=== PATIENT | female | born 1950 | race Caucasian/White ===

== ENCOUNTER → 2020-07-25 09:37 | Outpatient (BNVA) | payer BC, SELFPAY | PROVIDERS: PCP Internal Medicine; Visit Provider Student in an Organized Health Care Education/Training Program | DX: Z76.89 Persons encountering health services in other specified circumstances (principal) ==

== ENCOUNTER → 2020-08-01 09:41 | Outpatient (REF) | payer BC, SELFPAY ==
--- NOTE | 2020-08-01 | NM_ITS ---
EXERCISE MYOCARDIAL PERFUSION STUDY INDICATION: Cardiomegaly, congestive heart failure, assess for ischemia TECHNIQUE: The patient was brought in for an exercise perfusion study on 08/01/2020. Patient performed exercise as per Rylan protocol and was injected 25 mCi of sestamibi once target heart rate was achieved. Images were obtained using the SPECT gamma camera interlaced with the gating device. Images were obtained in supine as well as prone position. Resting perfusion study was performed on 08/02/2020. Patient was administered 25 mCi of sestamibi intravenously at rest. Images were then obtained in supine position. Images were processed with the software and compared side to side in short axis, horizontal long axis and vertical long axis views. FINDINGS: Raw images were reviewed. The stress perfusion study showed no significant perfusion abnormality. Both supine as well as prone acquisition reviewed. The gated study shows normal LV systolic function with calculated LVEF of 72%. LV cavity is normal in size. The gated study shows normal wall thickening and contraction of segments. Resting study shows no significant perfusion abnormality. Gating at rest reveals normal wall motion with ejection fraction at 71%. The findings are consistent with no reversible or fixed perfusion abnormality. IMPRESSION: 1. Myocardial perfusion imaging study shows normal myocardial perfusion. No evidence of any ischemia or infarction. 2. Gated LVEF is > 70% during stress and rest. 3. Transient ischemic dilatation not present. EKG component of the test reported separately.
--- NOTE | 2020-08-01 10:00 | CA_ITS ---
Acquisition Time: 2020-08-01 10:12:30 Total Exercise Time: 00:05:03 Test Indications: CARDIOMYOPATHY, CAD, HTN, EXERT Medications: Protocol: JUDY Max HR: 126 BPM 84% of Pred: 149 BPM Max BP: 162/084 mmHG Max Work Load: 4.8 METS Exercise stress nuclear using Judy protocol, 2nd stage held and the incline decreased. Total of 5 min 3 sec. EKG with no arrhythmias no ischemic changes. Nuclear images to follow. Normotensive response to exercise. Test reviewed with Dr. Pham. Referred By: Mario Green Overread By: Ananda Rashid
== END ==
LOC: HO.CARD 09:41
PROVIDERS: Visit Provider Internal Medicine Cardiovascular Disease
DX: I25.10 Atherosclerotic heart disease of native coronary artery without angina pectoris (principal); R06.02 Shortness of breath; Z86.79 Personal history of other diseases of the circulatory system
CPT/HCPCS: 78452; 93017; A9500

== ENCOUNTER 2020-10-30 08:29 | Outpatient (REF) | payer BC, SELFPAY ==
[2020-11-02 18:32] LABS: HPV mRNA E6/E7 rflx Not Detected (Not Detected)
== END 2020-10-30 08:30 | disposition home or self-care (01) ==
LOC: HO.LAB 08:29
PROVIDERS: Visit Provider Advanced Practice Midwife
DX: Z12.4 Encounter for screening for malignant neoplasm of cervix (principal); N88.9 Noninflammatory disorder of cervix uteri, unspecified
CPT/HCPCS: 36415; 87624; 88141; 88142

== ENCOUNTER → 2020-11-07 08:05 | Outpatient (BNVA) | payer BC, SELFPAY | PROVIDERS: PCP Internal Medicine; Visit Provider Student in an Organized Health Care Education/Training Program ==

== ENCOUNTER 2020-11-09 10:12 | Outpatient (REF) | payer BC, SELFPAY ==
--- NOTE | 2020-11-09 10:18 | XR_ITS ---
EXAMINATION: XR KNEE, RIGHT XR KNEE, LEFT CLINICAL INFORMATION: M17.0 - Bilateral primary osteoarthritis of knee COMPARISON: None TECHNIQUE: Each knee is imaged in 4 views including AP projections with weightbearing. There are a total of 8 views. FINDINGS: Right knee: No fracture or dislocation or destructive process. Mild patellofemoral joint narrowing without lateralization or tilting. Medial and lateral knee joint compartments within normal. No erosive change or chondrocalcinosis. No suprapatellar effusion. There is spurring at the quadriceps insertion patella. Scattered atherosclerotic calcifications vasculature. Left knee: No fracture or dislocation or destructive process. There is spurring at the quadriceps insertion patella and small suprapatellar effusion. Hoffa's fat pad appears normal. There is narrowing medial knee joint compartment with mild subchondral sclerosis and marginal osteophytes medial femoral condyle and tibial plateau. There are degenerative changes lateral patellofemoral joint with mild narrowing and lateral patellar spur. No definite lateralization or tilting. Scattered atherosclerotic calcifications vasculature. XR/XR knee RT 4V IMPRESSION: 1. Right: Mild degenerative change patellofemoral joint. Spurring quadriceps insertion patella. No effusion. 2. Left: Degenerative changes medial knee joint compartment and lateral patellofemoral joint. Small suprapatellar effusion. Spurring quadriceps insertion patella. 3. Bilateral scattered atherosclerotic changes vasculature.
--- NOTE | 2020-11-09 10:18 | XR_ITS ---
EXAMINATION: XR KNEE, RIGHT XR KNEE, LEFT CLINICAL INFORMATION: M17.0 - Bilateral primary osteoarthritis of knee COMPARISON: None TECHNIQUE: Each knee is imaged in 4 views including AP projections with weightbearing. There are a total of 8 views. FINDINGS: Right knee: No fracture or dislocation or destructive process. Mild patellofemoral joint narrowing without lateralization or tilting. Medial and lateral knee joint compartments within normal. No erosive change or chondrocalcinosis. No suprapatellar effusion. There is spurring at the quadriceps insertion patella. Scattered atherosclerotic calcifications vasculature. Left knee: No fracture or dislocation or destructive process. There is spurring at the quadriceps insertion patella and small suprapatellar effusion. Hoffa's fat pad appears normal. There is narrowing medial knee joint compartment with mild subchondral sclerosis and marginal osteophytes medial femoral condyle and tibial plateau. There are degenerative changes lateral patellofemoral joint with mild narrowing and lateral patellar spur. No definite lateralization or tilting. Scattered atherosclerotic calcifications vasculature. XR/XR knee LT 4V IMPRESSION: 1. Right: Mild degenerative change patellofemoral joint. Spurring quadriceps insertion patella. No effusion. 2. Left: Degenerative changes medial knee joint compartment and lateral patellofemoral joint. Small suprapatellar effusion. Spurring quadriceps insertion patella. 3. Bilateral scattered atherosclerotic changes vasculature.
== END 2020-11-09 10:13 | disposition home or self-care (01) ==
LOC: HO.HMGCX 10:12
PROVIDERS: PCP Internal Medicine; Visit Provider Student in an Organized Health Care Education/Training Program
DX: M17.0 Bilateral primary osteoarthritis of knee (principal)
CPT/HCPCS: 73564

== ENCOUNTER 2020-11-29 11:00 | Outpatient (RCR) | payer BC, SELFPAY ==
--- NOTE | 2020-11-16 16:34 | MHC.PT.EP ---
[facility] [place] Office [place] Office [place] Office [address] Jamarcus Tam [address] [phone] F: [phone] F: [phone] F: [phone] F: [phone] Physical Therapy Plan of Care Date of Evaluation: 11/16/20 Date of Surgery: Diagnosis: This is a 70 yo female presenting to skilled PT with a script for B knee OA. Assessment: This is a 70 yo female presenting to skilled PT with a script for B knee OA. She reports that her pain is mainly in the L knee. The patient is here today reporting pain has been present since the fall season when she was taken off her meloxicam (she has since been back on it however her pain has been slowly getting worse still). On top of pain she feels like her strength in BLE has got worse as well. In the past, she has received cortisone injections but these did not change her symptoms and she has never attended physical therapy for this issue prior. She is currently managing her symptoms with Tylenol arthritis and meloxicam but continues to have symptoms. Pain is located laterally, under the patella, medially and posteriorly as well. She describes her pain as achy and noisy . Assessment reveals pain that ranges to about a 4/10. She demos decreased L ROM with extension primarily, impaired quad strength on the L, hypomobile with patella movements, impaired gait with decreased full knee extension and heel strike and decreased pain tolerance with higher level activities. Functionally, she has a hard time with ascending/descending stairs, sleeping through the night, LB ADLs and walking her large dog 1-2 miles at a brisk pace. She is a good candidate for skilled PT 2x/wk for 5wks. Frequency and Duration: The patient will be seen 2x/wk for 5wks Short Term Goals: I in HEP Demo good squatting techniques without cuing from PT Demo good quad set without overactivation of glut Track Coach Goals: Demos functional BLE ROM and strength Improve LEFs by at least 10 points Improve pain at the worst to no more than 1/10 Demo proper gait on stairs without pain Treatment Plan: Modalities to reduce pain, spasms and effusion. Manual therapy to restore motion and function. Therapeutic exercise to improve strength and flexibility. Neuromuscular re-education for posture and balance. Therapeutic activities to return to functional activities of daily living. Electronically signed by: Jeanette Jacobs PT Please sign and return to therapist. Thank you for your referral.
--- NOTE | 2021-04-16 13:59 | MHC.PT.DC ---
[facility] [place] Office [place] Office [place] Office [address] Jamarcus Tam [address] [phone] F: [phone] F: [phone] F: [phone] F: [phone] Physical Therapy Discharge Report Diagnosis: This is a 70 yo female presenting to skilled PT with a script for B knee OA. Date of Surgery: Date of Evaluation: 11/16/20 Date of Discharge: 04/16/21 Treatments to Date: 4 Cancellations to Date: 0 No Shows to Date: 0 Discharge Status: Improved Function Independent with HEP Patient Elected to Stop Discharge Summary: Patient reporting no pain s/p US session trial at the last tx session. Added in bridging, SAQ without pain. Some discomfort on shuttle but tolerable. Plan to trial US once more next session however patient did not return for further tx. Electronically signed by: Jeanette Jacobs PT Please sign and return to therapist. Thank you for your referral.
== END 2021-04-16 14:00 | disposition home or self-care (01) ==
LOC: HO.PTCHIC 11:00
PROVIDERS: PCP Internal Medicine; Visit Provider Student in an Organized Health Care Education/Training Program
DX: M17.0 Bilateral primary osteoarthritis of knee (principal)
CPT/HCPCS: 97035; 97110; 97140; 97162

== ENCOUNTER 2021-01-12 08:08 | Outpatient (REF) | payer BC, SELFPAY ==
--- NOTE | ~2021-01-12 | MM_ITS ---
EXAMINATION: MM SCREENING DIGITAL BREAST TOMOSYNTHESIS, BILATERAL CLINICAL INFORMATION: Screening. Asymptomatic. The lifetime risk of breast cancer based on the Tyrer-Cuzick Model is 4.0%. COMPARISON: Mammography: March 09, 2019 and studies dating back to August 06, 2012 TECHNIQUE: Digital breast tomosynthesis is performed in both the craniocaudal and mediolateral oblique views along with computer-aided detection (CAD). Synthesized 2D images are generated from the tomosynthesis. FINDINGS: There are scattered areas of fibroglandular density (ACR BI-RADS breast composition Category b). There are no significant masses, abnormal calcifications, or other abnormalities. MM/MM tomosynthesis screening BI IMPRESSION: There are no significant changes from prior study. ASSESSMENT: BI-RADS 1: Negative RECOMMENDATION: Routine annual mammography screening. This patient's information was entered into a reminder system with a target due date for their next mammogram.
== END 2021-01-12 08:09 | disposition home or self-care (01) ==
LOC: HO.MAMMO 08:08
PROVIDERS: Visit Provider Advanced Practice Midwife
DX: Z12.31 Encounter for screening mammogram for malignant neoplasm of breast (principal)
CPT/HCPCS: 77063; 77067

== ENCOUNTER → 2021-03-02 08:28 | Outpatient (BNVA) | payer BC, SELFPAY | PROVIDERS: PCP Internal Medicine; Referring Provider Internal Medicine; Visit Provider Internal Medicine Cardiovascular Disease ==

== ENCOUNTER → 2021-04-13 07:57 | Outpatient (BNVA) | payer BC, SELFPAY | PROVIDERS: PCP Internal Medicine; Visit Provider Student in an Organized Health Care Education/Training Program | DX: M17.0 Bilateral primary osteoarthritis of knee (principal) | CPT/HCPCS: 20610 ==

== ENCOUNTER 2021-05-01 09:15 | Outpatient (REF) | payer BC, SELFPAY ==
--- NOTE | ~2021-05-01 | XR_ITS ---
EXAMINATION: XR CHEST CLINICAL INFORMATION: Cough COMPARISON: Previous chest x-ray most recent August 2017 TECHNIQUE: 2 views of the chest were obtained. FINDINGS: The cardiac and mediastinal contours are stable. There is mild biapical pleural thickening that is stable. The lungs are otherwise clear. There is no pleural effusion or pneumothorax. There are postsurgical changes to the right shoulder. There are degenerative changes of the spine. XR/XR chest 2V IMPRESSION: No evidence for acute disease in the chest.
== END 2021-05-01 09:16 | disposition home or self-care (01) ==
LOC: HO.HMGCX 09:15
PROVIDERS: PCP Internal Medicine; Visit Provider Internal Medicine
DX: R05 Cough (principal)
CPT/HCPCS: 71046

== ENCOUNTER → 2021-08-27 09:00 | Outpatient (REF) | payer BC, SELFPAY ==
--- NOTE | 2021-08-27 09:03 | CA_ITS ---
Transthoracic Echocardiogram Patient (Last, First, Middle): Haleigh Miranda L Gender: Female Date of : 1950 Age: 71 Procedure Date: 08/27/2021 Procedure Type: Transthoracic Echocardiogram Location: OP Height: 160.02 cm Weight: 65.77 kg BSA: 1.69 m2 Heart Rate: bpm BP: 126 / 68 mmHg Access Specialist: Referring MD: Mario Green MD Symptoms: I50.20 - Unspecified systolic (congestive) heart failure Study Quality: Fair ECG Rhythm: Sinus Conclusions: - The left ventricular systolic function is normal. The calculated ejection fraction is 62% by biplane method. - The basal inferior segment is hypokinetic. - There is mild mitral annular calcification. There is mild mitral valve regurgitation. Findings Left Ventricle Normal left ventricular cavity size. There is mildly increased left ventricular wall thickness. The left ventricular systolic function is normal. The calculated ejection fraction is 62% by biplane method. E/E prime ratio is between 8 and 15 consistent with indeterminate filling pressures. Evidence suggests grade I (mild) diastolic dysfunction. Wall Motion Rest Echo Findings The basal inferior segment is hypokinetic. Right Ventricle Normal right ventricular cavity size and systolic function. Atria The left atrium is mildly dilated. The right atrium is normal in size. There is a prominent eustachian valve. Aortic Valve The aortic valve was not well visualized. There is no aortic valve stenosis. There is trace (trivial) aortic valve regurgitation. Mitral Valve There is mild mitral annular calcification. There is mild mitral valve regurgitation. There is no mitral valve stenosis. Pulmonic Valve The pulmonic valve was not well visualized. Tricuspid Valve Normal tricuspid valve structure. There is trace tricuspid valve regurgitation. The pulmonary artery systolic pressure is normal. Great Vessels The aortic annulus, sinuses of valsalva, and asc aorta are normal in size. Venous The inferior vena cava is normal in size and collapses greater than 50% with inspiration. Pericardium/Pleural There is no evidence of pericardial effusion. Prior Study Comparison No significant change compared to prior study dated: 07/04/2020. Measurements 2D Linear Measurements IVSd: 1.04 0.6-0.9/0.6-1.0 cm LVIDd: 4.54 3.9-5.3/4.2-5.9 cm LVIDd Index: 2.69 2.4-3.2/2.2-3.1 cm/m2 LVIDs: 2.58 2.0-3.6 cm LVPWd: 1.06 0.7-1.1 cm Ao Root: 3.00 2.1-3.5 cm LA Diam: 4.30 2.7-3.8/3.0-4.0 cm LAIDs Index: 2.54 1.5-2.3 cm/m2 LV Mass: 207.15 67-162/88-224 g LV Mass Index: 122.57 43-95/49-115 g/m2 LVOT Diam: 2.00 3.0+(-)1.3 cm 2D Systolic Function EF 4C: 61.80 >55% EF 2C: 61.00 >55% EF BiP: 62.30 >55% Mitral Valve MV VTI: 0.42 MV Pk Valentin: 1.28 MV Mn Valentin: 0.78 MV Pk Grad: 7.00 MV Mn Grad: 3.00 MV Pk E: 0.85 MV PK A: 1.14 MV Decel Time: 205.00 E/A: 0.70 E'Lateral: 7.51 E'Medial: 5.33 E/E' Med: 15.90 E/E' Lat: 11.30 PHT: 60.00 MVA PHT: 3.67 MVA Continuity: 1.57 Decel [place]: 4.14 Aortic Valve AoV Pk Valentin: 1.70 AoV Mn Valentin: 1.12 AoV VTI: 0.41 AoV Pk Grad: 12.00 Aov Mn Grad: 6.00 LAWANDA Cont.VTI: 1.61 LVOT LVOT Pk Valentin: 0.87 LVOT Mn Valentin: 0.58 LVOT VTI: 0.21 LVOT Pk Grad: 3.00 LVOT Mn Grad: 2.00 LVOT Diam: 2.00 LVOT Area: 3.14 Diastolic Function MV Pk E: 0.85 MV Pk A: 1.14 E/A: 0.70 E'Medial: 5.33 E/E' Med: 15.90 E' Laterial: 7.51 E/E' Lat: 11.30 Great Vessels Aorta Ao Root-2D: 3.00 2.0-3.7 cm Ao Asc: 3.30 2.1-3.4 cm Pulmonary Valve PV Pk Valentin: 1.05 Peak PV Grad: 4.00 Updated in Other Vendor System with Status of Final Marquis Pham MD electronically signed on 08/28/2021 4:10:28 PM with status of Final
== END ==
LOC: HO.CARD 09:00
PROVIDERS: PCP Internal Medicine; Visit Provider Internal Medicine Cardiovascular Disease
DX: I50.20 Unspecified systolic (congestive) heart failure (principal)
CPT/HCPCS: 93306

== ENCOUNTER 2021-10-10 09:29 | Outpatient (REF) | payer BC, SELFPAY | END 2021-10-10 09:30 | disposition home or self-care (01) | LOC: HO.HMGCLDS 09:29 | PROVIDERS: PCP Internal Medicine; Visit Provider Internal Medicine | DX: Z20.822 Contact with and (suspected) exposure to COVID-19 (principal) | CPT/HCPCS: C9803; U0003; U0005 ==

== ENCOUNTER → 2021-11-06 13:52 | Outpatient (BNVA) | payer BC, SELFPAY | PROVIDERS: PCP Internal Medicine; Referring Provider Internal Medicine; Visit Provider Internal Medicine Cardiovascular Disease | DX: I25.10 Atherosclerotic heart disease of native coronary artery without angina pectoris (principal); I50.20 Unspecified systolic (congestive) heart failure; Z79.899 Other long term (current) drug therapy | CPT/HCPCS: 93005 ==

== ENCOUNTER → 2022-05-09 12:16 | Outpatient (BNVA) | payer BC, SELFPAY | PROVIDERS: PCP Internal Medicine; Referring Provider Internal Medicine; Visit Provider Internal Medicine Cardiovascular Disease | DX: I25.10 Atherosclerotic heart disease of native coronary artery without angina pectoris (principal); I50.20 Unspecified systolic (congestive) heart failure | CPT/HCPCS: 93005 ==

== ENCOUNTER 2022-05-17 08:17 | Outpatient (REF) | payer MEDICARE, SELFPAY ==
[2022-05-17 11:15] LABS: Hematocrit 38.8 % (37.0-47.0); Hemoglobin 12.7 g/dl (12.0-16.0); Mean Corpuscular HGB Conc 32.7 g/dl (31.0-35.0); Mean Corpuscular Hemoglobin 29.3 pg (27.0-33.0); Mean Corpuscular Volume 89.6 fL (80.0-98.0); Platelet Count 302 X10*3/uL (160-400); Red Blood Count 4.33 X10*6/uL (4.20-5.50); White Blood Count 9.6 X10*3/uL (4.8-10.8)
[2022-05-17 11:42] LABS: Anion Gap 14 (12-20); Blood Urea Nitrogen 17 mg/dL (9-16); Carbon Dioxide 29 mmol/L (22-29); Chloride 104 mmol/L (96-108); Cholesterol 151 mg/dL; Estimated Glomerular Filt Rate > 60; Glucose Random 98 mg/dL (60-115); HDL Cholesterol 62 mg/dL; LDL Cholesterol Calculated 72 mg/dl; Potassium 4.4 mmol/L (3.3-5.1); Sodium 143 mmol/L (135-145); Triglycerides 89 mg/dL
[2022-05-17 12:04] LABS: TSH reflex Free T4 0.57 uIU/mL (0.32-4.0)
== END 2022-05-17 08:18 | disposition home or self-care (01) ==
LOC: HO.HMGCLDS 08:17
PROVIDERS: Visit Provider Internal Medicine Cardiovascular Disease
DX: I25.10 Atherosclerotic heart disease of native coronary artery without angina pectoris (principal)
CPT/HCPCS: 36415; 80048; 80061; 84443; 85027

== ENCOUNTER 2022-06-19 07:48 | Outpatient (REF) | payer MEDICARE, SELFPAY ==
--- NOTE | ~2022-06-19 | MM_ITS ---
EXAMINATION: MM SCREENING DIGITAL BREAST TOMOSYNTHESIS, BILATERAL CLINICAL INFORMATION: Screening. Asymptomatic. The lifetime risk of breast cancer based on the Tyrer-Cuzick Model is 4%. COMPARISON: Mammography: 01/12/2021, 03/09/2019, 01/21/2018 TECHNIQUE: Digital breast tomosynthesis is performed in both the craniocaudal and mediolateral oblique views along with computer-aided detection (CAD). Synthesized 2D images are generated from the tomosynthesis. FINDINGS: There are scattered areas of fibroglandular density (ACR BI-RADS breast composition Category b). There are no significant masses, abnormal calcifications, or other abnormalities. Parenchymal pattern is similar to prior studies. There is no developing density or architectural abnormality. The axilla and skin contours are unremarkable. No significant changes. MM/MM tomosynthesis screening BI IMPRESSION: No mammographic evidence of malignancy. ASSESSMENT: BI-RADS 1: Negative RECOMMENDATION: Routine annual mammography screening. This patient's information was entered into a reminder system with a target due date for their next mammogram.
== END 2022-06-19 07:49 | disposition home or self-care (01) ==
LOC: HO.MAMMO 07:48
PROVIDERS: PCP Internal Medicine; Visit Provider Internal Medicine
DX: Z12.31 Encounter for screening mammogram for malignant neoplasm of breast (principal)
CPT/HCPCS: 77063; 77067

== ENCOUNTER 2022-11-13 08:56 | Outpatient (REF) | payer MEDICARE, SELFPAY ==
--- NOTE | ~2022-11-13 | XR_ITS ---
EXAMINATION: XR CHEST CLINICAL INFORMATION: Wheezing COMPARISON: 05/01/2021 TECHNIQUE: 2 views of the chest were obtained. FINDINGS: The lungs are well expanded. There is no focal consolidation, edema, or effusion. No pneumothorax. The cardiomediastinal silhouette is within normal limits. No acute osseous abnormality. Radiopaque anchors in the right humeral head. XR/XR chest 2V IMPRESSION: Clear lungs.
[2022-11-13 12:09] LABS: Alanine Aminotransferase 14 U/L (0-31); Albumin Level 4.1 g/dL (3.5-5.0); Alkaline Phosphatase 82 U/L (39-117); Anion Gap 14 (12-20); Aspartate Amino Transferase 44 U/L (5-31); Bilirubin Total 0.6 mg/dL (0.0-1.0); Blood Urea Nitrogen 17 mg/dL (9-16); Calcium 9.1 mg/dL (8.4-10.2); Carbon Dioxide 27 mmol/L (22-29); Chloride 107 mmol/L (96-108); Estimated Glomerular Filt Rate 58; Glucose Random 75 mg/dL (60-115); Potassium 4.4 mmol/L (3.3-5.1); Sodium 144 mmol/L (135-145); Total Protein 6.9 g/dL (6.5-8.0)
== END 2022-11-13 08:57 | disposition home or self-care (01) ==
LOC: HO.HMGCX 08:56
PROVIDERS: PCP Internal Medicine; Visit Provider Internal Medicine
DX: R05.9 Cough, unspecified (principal); R06.2 Wheezing; G47.9 Sleep disorder, unspecified; I10 Essential (primary) hypertension; I25.10 Atherosclerotic heart disease of native coronary artery without angina pectoris; K21.9 Gastro-esophageal reflux disease without esophagitis
CPT/HCPCS: 36415; 71046; 80053

== ENCOUNTER 2023-03-14 11:45 | Outpatient (REF) | payer MEDICARE, SELFPAY ==
--- NOTE | ~2023-03-14 | XR_ITS ---
EXAMINATION: XR CERVICAL SPINE CLINICAL INFORMATION: Left shoulder pain. COMPARISON: None available. TECHNIQUE: 3 views of the cervical spine were obtained. FINDINGS: T7 is suboptimally visualized on lateral view. Examination demonstrates moderate disc degenerative change at C4-C7. Multilevel cervical facet degenerative changes are evident. Vertebral body heights and alignment appear maintained. No fracture is seen. The prevertebral soft tissues appear unremarkable. The right carotid bulb is calcified. XR/XR cervical spine 2V IMPRESSION: Degenerative change.
--- NOTE | ~2023-03-14 | XR_ITS ---
EXAMINATION: XR SHOULDER, LEFT CLINICAL INFORMATION: Left shoulder pain. COMPARISON: None available. TECHNIQUE: Three views of the left shoulder. FINDINGS: The bones and soft tissues appear unremarkable. No fracture. Glenohumeral and acromioclavicular alignment is anatomic with normal joint space. Mild atherosclerotic aorta. XR/XR shoulder LT min 2V IMPRESSION: Unremarkable plain film examination of the left shoulder.
[2023-03-14 13:57] LABS: MANUAL DIFF FLAG NO
[2023-03-14 14:04] LABS: Basophils Absolute Auto 0.1 X10*3/uL (0.0-0.2); Basophils Percent Auto 0.8 % (0-2); Eosinophils Absolute Auto 0.4 X10*3/uL (0.0-0.4); Eosinophils Percent Auto 5.8 % (0-4); Hematocrit 37.1 % (37.0-47.0); Hemoglobin 12.1 g/dl (12.0-16.0); Imm Gran Abs Auto 0.02 X10*3/uL (0.00-0.03); Imm Gran Pct Auto 0.3 % (0.0-0.4); Lymphocytes Absolute Auto 1.2 X10*3/uL (1.2-4.9); Lymphocytes Percent Auto 16.4 % (20-40); Mean Corpuscular HGB Conc 32.6 g/dl (31.0-35.0); Mean Corpuscular Hemoglobin 30.3 pg (27.0-33.0); Mean Corpuscular Volume 92.8 fL (80.0-98.0); Mean Platelet Volume 9.7 fL (9.4-12.3); Monocytes Absolute Auto 0.7 X10*3/uL (0.1-1.2); Monocytes Percent Auto 9.5 % (2-11); Neutrophils Percent Auto 67.2 % (45-73); Platelet Count 317 X10*3/uL (160-400); Red Cell Distribution Width 13.9 % (11.0-16.0); White Blood Count 7.4 X10*3/uL (4.8-10.8)
[2023-03-14 14:27] LABS: Alanine Aminotransferase 19 U/L (0-31); Albumin Level 4.1 g/dL (3.5-5.0); Alkaline Phosphatase 69 U/L (39-117); Anion Gap 11 (12-20); Aspartate Amino Transferase 52 U/L (5-31); Bilirubin Total 0.6 mg/dL (0.0-1.0); Blood Urea Nitrogen 18 mg/dL (9-16); Calcium 9.1 mg/dL (8.4-10.2); Carbon Dioxide 28 mmol/L (22-29); Chloride 107 mmol/L (96-108); Estimated Glomerular Filt Rate > 60; Glucose Random 95 mg/dL (60-115); Potassium 4.3 mmol/L (3.3-5.1); Sodium 142 mmol/L (135-145); Total Protein 6.8 g/dL (6.5-8.0)
== END 2023-03-14 11:46 | disposition home or self-care (01) ==
LOC: HO.HMGCX 11:45
PROVIDERS: PCP Internal Medicine; Visit Provider Internal Medicine
DX: M25.512 Pain in left shoulder (principal); F41.9 Anxiety disorder, unspecified; G47.9 Sleep disorder, unspecified; I10 Essential (primary) hypertension; I25.10 Atherosclerotic heart disease of native coronary artery without angina pectoris; K21.9 Gastro-esophageal reflux disease without esophagitis; M25.50 Pain in unspecified joint; R20.2 Paresthesia of skin
CPT/HCPCS: 36415; 72040; 73030; 80053; 85025

== ENCOUNTER → 2023-03-28 10:32 | Outpatient (BNVA) | payer MEDICARE, SELFPAY | PROVIDERS: PCP Internal Medicine; Visit Provider Orthopaedic Surgery | DX: M25.512 Pain in left shoulder (principal); R20.2 Paresthesia of skin | CPT/HCPCS: 20610; 99212; J1100 ==

== ENCOUNTER → 2023-05-16 08:33 | Outpatient (REF) | payer MEDICARE, SELFPAY ==
--- NOTE | 2023-05-16 08:35 | CA_ITS ---
Transthoracic Echocardiogram Patient (Last, First, Middle): Haleigh Miranda L Gender: Female Date of : 1950 Age: 73 Procedure Date: 05/16/2023 Procedure Type: Transthoracic Echocardiogram Location: OP Height: 160.02 cm Weight: 58.97 kg BSA: 1.61 m2 Heart Rate: 69 bpm BP: 132 / 60 mmHg Software Integration Developer: SB Referring MD: Mario Green MD Tea Taster: Mario Green MD Symptoms: I50.20 - Unspecified systolic (congestive) heart failure Study Quality: Adequate ECG Rhythm: Sinus Conclusions: - 1. Normal LV ejection fraction 55-60% with impaired relaxation filling pattern and elevated filling pressures 2. Mildly dilated left atrium 3. Mild aortic stenosis and regurgitation 4. Mild mitral regurgitation 5. Normal RV systolic pressure 6. No pericardial effusion Findings Left Ventricle Normal left ventricular size, thickness, and systolic function. The visually estimated ejection fraction is between 55-60%. Spectral Doppler is indicative of an impaired relaxation filling pattern. Elevated filling pressures. E/E prime ratio is >15, consistent with elevated filling pressures. Wall Motion Rest Echo Findings The basal inferior segment is hypokinetic. All other scored wall segments showed normal motion. Right Ventricle Normal right ventricular cavity size and systolic function. Atria The left atrium is mildly dilated. Interatrial shunt cannot be excluded. The right atrium is normal in size. Aortic Valve There is mild calcification of the aortic valve. There is mild aortic valve stenosis. There is mild aortic valve regurgitation. Mitral Valve There is mild anterior and posterior mitral leaflet thickening. There is mild mitral annular calcification. There is mild mitral valve regurgitation. There is no mitral valve stenosis. Pulmonic Valve The pulmonic valve is likely normal. There is trace pulmonic valve regurgitation. Tricuspid Valve Normal tricuspid valve structure. There is mild tricuspid valve regurgitation. The right ventricular systolic pressure is normal. The right ventricular systolic pressure is 23 mmHg. Normal right atrial pressure. There is no evidence of pulmonary hypertension. Great Vessels All visible segments of the aorta are normal in size. The pulmonary artery was not well visualized. There is no dilatation of the ascending aorta. Venous The inferior vena cava is normal in size and collapses greater than 50% with inspiration. Pericardium/Pleural There is no evidence of pericardial effusion. Prior Study Comparison Changes noted compared to prior study dated: 08/27/2021. mild aortic stenosis is present Measurements 2D Linear Measurements IVSd: 0.91 0.6-0.9/0.6-1.0 cm LVIDd: 4.83 3.9-5.3/4.2-5.9 cm LVIDd Index: 3.00 2.4-3.2/2.2-3.1 cm/m2 LVIDs: 3.01 2.0-3.6 cm LVPWd: 1.03 0.7-1.1 cm LA Diam: 3.90 2.7-3.8/3.0-4.0 cm LAIDs Index: 2.42 1.5-2.3 cm/m2 LV Mass: 205.37 67-162/88-224 g LV Mass Index: 127.56 43-95/49-115 g/m2 LVOT Diam: 1.90 3.0+(-)1.3 cm 2D Systolic Function EF 4C: 54.80 >55% EF 2C: 57.70 >55% EF BiP: 54.70 >55% Mitral Valve MV Pk E: 1.06 MV PK A: 1.19 MV Decel Time: 210.00 E/A: 0.90 E'Lateral: 5.87 E'Medial: 5.11 E/E' Med: 20.70 E/E' Lat: 18.10 PHT: 62.00 MVA PHT: 3.55 Decel [place]: 5.05 Aortic Valve AoV Pk Valentin: 1.55 AoV Mn Valentin: 1.05 AoV VTI: 0.36 AoV Pk Grad: 10.00 Aov Mn Grad: 5.00 LAWANDA Cont.VTI: 1.57 LVOT LVOT Pk Valentin: 0.86 LVOT Mn Valentin: 0.58 LVOT VTI: 0.20 LVOT Pk Grad: 3.00 LVOT Mn Grad: 2.00 LVOT Diam: 1.90 LVOT Area: 2.84 Diastolic Function MV Pk E: 1.06 MV Pk A: 1.19 E/A: 0.90 E'Medial: 5.11 E/E' Med: 20.70 E' Laterial: 5.87 E/E' Lat: 18.10 Right Ventricle TAPSE (mm): 23.20 TVS' Valentin: 13.20 Tricuspid Valve TR Pk Valentin: 2.23 TR Pk Grad: 20.00 RA Press: 3.00 RVSP: 23.00 Great Vessels Aorta Sinus of Valsalva: 2.90 2.0-3.5 cm Ao Asc: 3.40 2.1-3.4 cm Pulmonary Veins Pulm Vein S/D 1.40 Pulmonary Valve PV Pk Valentin: 0.86 Peak PV Grad: 3.00 Updated in Other Vendor System with Status of Final Mario Green MD electronically signed on 05/16/2023 2:26:51 PM with status of Final
== END ==
LOC: HO.CARD 08:33
PROVIDERS: PCP Internal Medicine; Visit Provider Internal Medicine Cardiovascular Disease
DX: I50.20 Unspecified systolic (congestive) heart failure (principal)
CPT/HCPCS: 93306

== ENCOUNTER → 2023-05-16 08:35 | Outpatient (BNV) | payer MEDICARE, SELFPAY | PROVIDERS: PCP Internal Medicine; Visit Provider Internal Medicine Cardiovascular Disease | DX: I35.0 Nonrheumatic aortic (valve) stenosis (principal); I35.1 Nonrheumatic aortic (valve) insufficiency | CPT/HCPCS: 93306 ==

== ENCOUNTER 2023-06-27 14:08 | Outpatient (AMB) | payer MEDICARE, SELFPAY ==
[2023-06-27 14:10] VITALS: BP 110/72; PULSE 71; O2SAT 97; BMI 24.5
--- NOTE | 2023-06-27 14:10 | MHC.PC.OV ---
Vital Signs 06/27/23 14:10 Height 5 ft 3 in Weight 138 lb 2 oz BMI 24.5 BP 110/72 Blood Pressure Location Lt brachial Position Sitting Pulse 71 Pulse Source Pulse Oximeter Pulse Oximetry (%) 97 Oxygen Delivery Method Room Air Intake Visit Reasons: Possible UTI Allergies shellfish derived [SHELLFISH DERIVED] Allergy (Intermediate, Verified 06/27/23 14:21) THROAT CLOSING Sulfa (Sulfonamide Antibiotics) [SULFA (SULFONAMIDE ANTIBIOTICS)] Allergy (Mild, Verified 06/27/23 14:21) FLU LIKE SYMPTOMS Medication List - Last Reconciled 06/27/23 by Leslie Canseco MD amlodipine 5 mg PO DAILY aspirin 81 mg PO DAILY atorvastatin 80 mg PO DAILY carvedilol 25 mg PO BID clobetasol 0.05% 1 appl topical BID 2 weeks furosemide 20 mg PO DAILY lorazepam 0.5 mg PO DAILY PRN 30 days losartan 100 mg PO DAILY meloxicam 15 mg PO DAILY 90 days pantoprazole 40 mg PO DAILY 90 days Tobacco use date assessed: 06/27/23 Fall risk assessment: No Falls in past year Last assessed Fall Risk: 06/27/23 Dental Screening Dental Screen Date: 06/27/23 Did you have a dental visit in the last 12 months?: Yes Did you have a dental problem in the last 6 months where you did not have access to dental care?: No Was dental information given to patient?: No HPI Possible UTI HPI Details Patient came in today for a follow-up appointment She was also having dysuria couple of days ago however today she is feeling fine Urinalysis done today shows no signs of infection I have put in order for UA if she started having symptoms again she can come to the lab. Anxiety is stable patient is taking lorazepam at night as needed to sleep as a sleep aid and for anxiety. Review sent for next 3 month GERD is stable, patient is on pantoprazole 40 mg Blood pressure is stable as well patient is on losartan 100 mg and amlodipine 5 mg Lipid disorder: Continue atorvastatin 80 mg Severe osteoarthritis multiple joints: Patient is on meloxicam 7.5 mg 1 in the morning. With food Cardiac care through [facility]. Follow-up 3 months [facility] Medical History CAD (coronary artery disease) HTN (hypertension) Heart failure with reduced ejection fraction Congestive heart failure CHD (congenital heart disease) Eczema Surgical History Status post creation of urethral sling by suprapubic approach Basal cell carcinoma Shoulder arthritis H/O cardiac catheterization Social History Housing: House Alcohol intake: current Alcohol intake frequency: holidays/special occasions only Alcohol type: hard liquor Patient Tobacco Use Status: Never used Tobacco e-Cigarette/Vaping Use: Never Used service: No Current occupational status: retired Cognitive needs: No Hearing needs: No Vision needs: Yes (contacts) Questionnaire Thrive Questionnaire Date Thrive assessed: 11/13/22 AUDIT C Alcohol Use Questionnaire (AUDIT-C) 1. How often do you have a drink containing alcohol?: Monthly or less 2. How many drinks containing alcohol do you have on a typical day when you are drinking?: 1 or 2 3. How often do you have six or more drinks on one occasion?: Never Total Score: 1 Score Reviewed/Action Taken: Yes DANELLE-7 AMB Questionnaire DANELLE-7 Date DANELLE - 7 assessed: 11/13/22 Source: Developed by Drs. Flo Hunter, Ruby Krishna, Joaquín White and colleagues, with an educational miguelangel from [employer]. Review of Systems Const Denies chills and Denies fever(s) ENT Denies epistaxis and Denies nasal discharge Card Denies chest pain Resp Denies chest congestion, Denies cough and Denies hemoptysis GI Denies diarrhea and Denies nausea Skin/Breast Denies rash Neuro Reports no additional complaints Psych Reports no additional complaints Endo Reports no additional complaints Physical exam (Primary Care) Vital Signs: Last Vital Signs Pulse 71 06/27/23 14:10 BP 110/72 06/27/23 14:10 Pulse Ox 97 06/27/23 14:10 Oxygen Delivery Method Room Air 06/27/23 14:10 BMI result Body Mass Index 24.5 Tobacco/Smoking Status: Tobacco use Status Tobacco use date assessed 06/27/23 06/27/23 14:23 Patient Tobacco Use Status Never used Tobacco 06/27/23 14:11 e-Cigarette/Vaping Use Never Used 06/27/23 14:11 Thrive Assessment: Date of Thrive Assessment Date Thrive assessed 11/13/22 06/27/23 14:11 Const General: cooperative, comfortable and no acute distress Orientation/consciousness: patient oriented x3 HENMT Head: Yes normocephalic Eyes General: appearance normal, both eyes and all related structures Neck Neck: Yes supple Resp Effort & Inspection: normal respiratory effort, no cough and no stridor Cardio Rhythm: regular rhythm Heart sounds: S1 normal heart sound present and S2 normal heart sound present Skin General skin exam: turgor normal Neuro General: patient oriented x3, tone normal and moves all extremities Extrem Right lower extremity: no edema Left lower extremity: no edema Results AMB Urinalysis, Automated UA Leukoctes 0 Viviane/uL Last Edit by Danny Camilo CCM on 06/27/23 14:37 UA Nitrite Negative Last Edit by Danny Camilo [facility] on 06/27/23 14:37 UA Urobilinogen 0.2 mg/dL Last Edit by Danny Camilo [facility] on 06/27/23 14:37 UA Protein 0 mg/dL Last Edit by Danny Camilo [facility] on 06/27/23 14:37 UA pH 6.0 Last Edit by Danny Camilo [facility] on 06/27/23 14:37 UA Blood 0 Gentry/uL Last Edit by Danny Camilo [facility] on 06/27/23 14:37 UA Specific [place] 1.020 Last Edit by Danny Camilo [facility] on 06/27/23 14:37 UA Ketone Negative Last Edit by Danny Camilo [facility] on 06/27/23 14:37 UA Bilirubin 0 mg/dL Last Edit by Danny Camilo [facility] on 06/27/23 14:37 UA Glucose 0 mg/dL Last Edit by Danny Camilo [facility] on 06/27/23 14:37 Results Reviewed Results Reviewed: Laboratory Last Values Urine pH (Auto) 6.0 06/27/23 14:36 Specific [place] (Auto) 1.020 06/27/23 14:36 Urine Protein (Auto) 0 mg/dL 06/27/23 14:36 Glucose (UA)(Auto) 0 mg/dL 06/27/23 14:36 Urine Ketones (Auto) Negative 06/27/23 14:36 Urine Blood (Auto) 0 Gentry/uL 06/27/23 14:36 Urine Nitrite (Auto) Negative 06/27/23 14:36 Urine Bilirubin (Auto) 0 mg/dL 06/27/23 14:36 Urine Urobilinogen (Auto) 0.2 mg/dL 06/27/23 14:36 Leukocyte Esterase (Auto) 0 Viviane/uL 06/27/23 14:36 Assessment and Plan Assessment & Plan (1) HTN (hypertension): Code(s): I10 - Essential (primary) hypertension Qualifiers: Hypertension type: primary hypertension Qualified Code(s): I10 - Essential (primary) hypertension (2) Dysuria: Code(s): R30.0 - Dysuria (3) Difficulty sleeping: Code(s): G47.9 - Sleep disorder, unspecified (4) CAD (coronary artery disease): Code(s): I25.10 - Atherosclerotic heart disease of [place] coronary artery without angina pectoris Qualifiers: Associated angina: without angina Coronary Disease-Associated Artery/Lesion type: [place] artery [place] vs. transplanted heart: [place] heart Qualified Code(s): I25.10 - Atherosclerotic heart disease of [place] coronary artery without angina pectoris (5) Chronic GERD: Code(s): K21.9 - Gastro-esophageal reflux disease without esophagitis (6) Polyarthralgia: Code(s): M25.50 - Pain in unspecified joint (7) Anxiety: Code(s): F41.9 - Anxiety disorder, unspecified Plan Patient came in today for a follow-up appointment She was also having dysuria couple of days ago however today she is feeling fine Urinalysis done today shows no signs of infection I have put in order for UA if she started having symptoms again she can come to the lab. Anxiety is stable patient is taking lorazepam at night as needed to sleep as a sleep aid and for anxiety. Review sent for next 3 month GERD is stable, patient is on pantoprazole 40 mg Blood pressure is stable as well patient is on losartan 100 mg and amlodipine 5 mg Lipid disorder: Continue atorvastatin 80 mg Severe osteoarthritis multiple joints: Patient is on meloxicam 7.5 mg 1 in the morning. With food Cardiac care through [facility]. Follow-up 3 months Orders: Orders AMB Urinalysis Automated Today Z13.9 - Encounter for screening, unspecified UA CC w/rflx Micro + Cult Today R30.0 - Dysuria Medications: Refilled lorazepam Medication will only be filled at office visit next time 0.5 mg PO DAILY PRN 30 tabs 2RF sleep 30 days G47.9 - Sleep disorder, unspecified Coding Level of Care Code Est Pt Level 4 (64877) Diagnoses Primary hypertension I10 Hypertension type: primary hypertension Dysuria R30.0 Difficulty sleeping G47.9 Coronary artery disease involving [place] coronary artery of [place] heart without angina pectoris I25.10 Associated angina: without angina Coronary Disease-Associated Artery/Lesion type: [place] artery [place] vs. transplanted heart: [place] heart Chronic GERD K21.9 Polyarthralgia M25.50 Anxiety F41.9
== END 2023-06-27 15:55 | disposition home or self-care (01) ==
PROVIDERS: PCP Internal Medicine; Visit Provider Internal Medicine
DX: I10 Essential (primary) hypertension (principal); K21.9 Gastro-esophageal reflux disease without esophagitis; F41.9 Anxiety disorder, unspecified; R30.0 Dysuria; G47.9 Sleep disorder, unspecified; I25.10 Atherosclerotic heart disease of native coronary artery without angina pectoris; M25.50 Pain in unspecified joint
CPT/HCPCS: 81003; 99214

== ENCOUNTER 2023-07-17 07:28 | Outpatient (REF) | payer MEDICARE, SELFPAY | END 2023-07-17 07:29 | disposition home or self-care (01) | LOC: HO.MAMMO 07:28 | PROVIDERS: Visit Provider Internal Medicine | DX: Z12.31 Encounter for screening mammogram for malignant neoplasm of breast (principal) | CPT/HCPCS: 77063; 77067 ==

== ENCOUNTER → 2023-07-17 08:00 | Outpatient (BNV) | payer MEDICARE, SELFPAY | PROVIDERS: Visit Provider Radiology Diagnostic Radiology | DX: Z12.31 Encounter for screening mammogram for malignant neoplasm of breast (principal) | CPT/HCPCS: 77063; 77067 ==

== ENCOUNTER 2023-09-26 10:31 | Outpatient (AMB) | payer MEDICARE, SELFPAY ==
[2023-09-26 10:33] VITALS: BP 118/60; PULSE 84; O2SAT 99; BMI 23.9
--- NOTE | 2023-09-26 10:33 | MHC.PC.OV ---
Vital Signs 09/26/23 10:33 Height 5 ft 3 in Weight 135 lb BMI 23.9 BP 118/60 Blood Pressure Location Lt brachial Position Sitting Pulse 84 Pulse Source Pulse Oximeter Pulse Oximetry (%) 99 Oxygen Delivery Method Room Air Intake Visit Reasons: 3 MO Allergies shellfish derived [SHELLFISH DERIVED] Allergy (Intermediate, Verified 09/26/23 10:35) THROAT CLOSING Sulfa (Sulfonamide Antibiotics) [SULFA (SULFONAMIDE ANTIBIOTICS)] Allergy (Mild, Verified 09/26/23 10:35) FLU LIKE SYMPTOMS Medication List - Last Reconciled 09/26/23 by Leslie Canseco MD amlodipine 5 mg PO DAILY aspirin 81 mg PO DAILY atorvastatin 80 mg PO DAILY carvedilol 25 mg PO BID clobetasol 0.05% 1 appl topical BID 2 weeks furosemide 20 mg PO DAILY lorazepam 0.5 mg PO DAILY PRN 30 days losartan 100 mg PO DAILY meloxicam 15 mg PO DAILY 90 days pantoprazole 40 mg PO DAILY 90 days Tobacco use date assessed: 09/26/23 Fall risk assessment: No Falls in past year Last assessed Fall Risk: 09/26/23 Dental Screening Dental Screen Date: 09/26/23 Did you have a dental visit in the last 12 months?: Yes Did you have a dental problem in the last 6 months where you did not have access to dental care?: No Was dental information given to patient?: Patient has dentist HPI 3 MO HPI Details Patient came in today for a follow-up appointment Anxiety is stable patient is taking lorazepam at night as needed to sleep as a sleep aid and for anxiety. Medications sent 90 tablets GERD is stable, patient is on pantoprazole 40 mg Blood pressure is stable as well patient is on losartan 100 mg and amlodipine 5 mg Patient is on atorvastatin 80 mg through Cardiology as a preventive medication for coronary artery disease Severe osteoarthritis multiple joints: Patient is on meloxicam 7.5 mg 1 in the morning. With food Cardiac care through [facility]. Follow-up 4 months Due for labs I reviewed her echocardiogram done in April of this year ejection fraction is 55-60% I am holding her furosemide patient does not have any shortness of breath or swelling of ankles. If she started having swelling of ankle she will resume. [facility] Medical History CAD (coronary artery disease) HTN (hypertension) Heart failure with reduced ejection fraction Congestive heart failure CHD (congenital heart disease) Eczema Surgical History Status post creation of urethral sling by suprapubic approach Basal cell carcinoma Shoulder arthritis H/O cardiac catheterization Social History Housing: House Alcohol intake: current Alcohol intake frequency: holidays/special occasions only Alcohol type: hard liquor Patient Tobacco Use Status: Former Tobacco user e-Cigarette/Vaping Use: Never Used service: No Current occupational status: retired Cognitive needs: No Hearing needs: No Vision needs: Yes (contacts) Questionnaire Thrive Questionnaire Date Thrive assessed: 11/13/22 DANELLE-7 AMB Questionnaire DANELLE-7 Date DANELLE - 7 assessed: 11/13/22 Source: Developed by Drs. Flo Hunter, Ruby Krishna, Joaquín White and colleagues, with an educational miguelangel from [employer]. Review of Systems Const Denies chills and Denies fever(s) ENT Denies epistaxis and Denies nasal discharge Card Denies chest pain Resp Denies chest congestion, Denies cough and Denies hemoptysis GI Denies diarrhea and Denies nausea Skin/Breast Denies rash Neuro Reports no additional complaints Psych Reports no additional complaints Endo Reports no additional complaints Physical exam (Primary Care) Vital Signs: Last Vital Signs Pulse 84 09/26/23 10:33 BP 118/60 09/26/23 10:33 Pulse Ox 99 09/26/23 10:33 Oxygen Delivery Method Room Air 09/26/23 10:33 BMI result Body Mass Index 23.9 Tobacco/Smoking Status: Tobacco use Status Tobacco use date assessed 09/26/23 09/26/23 10:36 Patient Tobacco Use Status Former Tobacco user 09/26/23 10:36 e-Cigarette/Vaping Use Never Used 09/26/23 10:36 Thrive Assessment: Date of Thrive Assessment Date Thrive assessed 11/13/22 09/26/23 10:36 Const General: cooperative, comfortable and no acute distress Orientation/consciousness: patient oriented x3 HENMT Head: Yes normocephalic Eyes General: appearance normal, both eyes and all related structures Neck Neck: Yes supple Resp Effort & Inspection: normal respiratory effort, no cough and no stridor Cardio Rhythm: regular rhythm Heart sounds: S1 normal heart sound present and S2 normal heart sound present Skin General skin exam: turgor normal Neuro General: patient oriented x3, tone normal and moves all extremities Extrem Right lower extremity: no edema Left lower extremity: no edema Assessment and Plan Assessment & Plan (1) Primary osteoarthritis of hands, bilateral: Code(s): M19.041 - Primary osteoarthritis, right hand; M19.042 - Primary osteoarthritis, left hand (2) Primary osteoarthritis of feet, bilateral: Code(s): M19.071 - Primary osteoarthritis, right ankle and foot; M19.072 - Primary osteoarthritis, left ankle and foot (3) Bilateral primary osteoarthritis of knee: Code(s): M17.0 - Bilateral primary osteoarthritis of knee (4) Difficulty sleeping: Code(s): G47.9 - Sleep disorder, unspecified (5) HTN (hypertension): Code(s): I10 - Essential (primary) hypertension Qualifiers: Hypertension type: primary hypertension Qualified Code(s): I10 - Essential (primary) hypertension (6) CAD (coronary artery disease): Code(s): I25.10 - Atherosclerotic heart disease of [place] coronary artery without angina pectoris Qualifiers: Associated angina: without angina Coronary Disease-Associated Artery/Lesion type: [place] artery [place] vs. transplanted heart: [place] heart Qualified Code(s): I25.10 - Atherosclerotic heart disease of [place] coronary artery without angina pectoris (7) Chronic GERD: Code(s): K21.9 - Gastro-esophageal reflux disease without esophagitis Plan Patient came in today for a follow-up appointment Anxiety is stable patient is taking lorazepam at night as needed to sleep as a sleep aid and for anxiety. Medications sent 90 tablets GERD is stable, patient is on pantoprazole 40 mg Blood pressure is stable as well patient is on losartan 100 mg and amlodipine 5 mg Patient is on atorvastatin 80 mg through Cardiology as a preventive medication for coronary artery disease Severe osteoarthritis multiple joints: Patient is on meloxicam 7.5 mg 1 in the morning. With food Cardiac care through [facility]. Follow-up 4 months Due for labs Orders: Orders Comprehensive Met. Panel Today G47.9 - Sleep disorder, unspecified, I10 - Essential (primary) hypertension, I25.10 - Atherosclerotic heart disease of [place] coronary artery without angina pectoris, I50.20 - Unspecified systolic (congestive) heart failure, K21.9 - Gastro-esophageal reflux disease without esophagitis, M17.0 - Bilateral primary osteoarthritis of knee, M19.041 - Primary osteoarthritis, right hand, M19.042 - Primary osteoarthritis, left hand, M19.071 - Primary osteoarthritis, right ankle and foot, M19.072 - Primary osteoarthritis, left ankle and foot Complete Blood Count Auto Diff Today G47.9 - Sleep disorder, unspecified, I10 - Essential (primary) hypertension, I25.10 - Atherosclerotic heart disease of [place] coronary artery without angina pectoris, I50.20 - Unspecified systolic (congestive) heart failure, K21.9 - Gastro-esophageal reflux disease without esophagitis, M17.0 - Bilateral primary osteoarthritis of knee, M19.041 - Primary osteoarthritis, right hand, M19.042 - Primary osteoarthritis, left hand, M19.071 - Primary osteoarthritis, right ankle and foot, M19.072 - Primary osteoarthritis, left ankle and foot LDL Cholesterol Direct Today G47.9 - Sleep disorder, unspecified, I10 - Essential (primary) hypertension, I25.10 - Atherosclerotic heart disease of [place] coronary artery without angina pectoris, I50.20 - Unspecified systolic (congestive) heart failure, K21.9 - Gastro-esophageal reflux disease without esophagitis, M17.0 - Bilateral primary osteoarthritis of knee, M19.041 - Primary osteoarthritis, right hand, M19.042 - Primary osteoarthritis, left hand, M19.071 - Primary osteoarthritis, right ankle and foot, M19.072 - Primary osteoarthritis, left ankle and foot Medications: Changed From lorazepam Medication will only be filled at office visit next time 0.5 mg PO DAILY 30 days PRN 30 tabs 2RF sleep G47.9 - Sleep disorder, unspecified To lorazepam Medication will only be filled at office visit next time 0.5 mg PO DAILY PRN 90 tabs 0RF sleep 90 days G47.9 - Sleep disorder, unspecified Refilled meloxicam 15 mg PO DAILY 90 tabs 1RF 90 days Coding Level of Care Code Est Pt Level 4 (20652) Diagnoses Primary osteoarthritis of hands, bilateral M19.041; M19.042 Primary osteoarthritis of feet, bilateral M19.071; M19.072 Bilateral primary osteoarthritis of knee M17.0 Difficulty sleeping G47.9 Primary hypertension I10 Hypertension type: primary hypertension Coronary artery disease involving [place] coronary artery of [place] heart without angina pectoris I25.10 Associated angina: without angina Coronary Disease-Associated Artery/Lesion type: [place] artery [place] vs. transplanted heart: [place] heart Chronic GERD K21.9
== END 2023-09-26 11:01 | disposition home or self-care (01) ==
PROVIDERS: PCP Internal Medicine; Visit Provider Internal Medicine
DX: M19.041 Primary osteoarthritis, right hand (principal); M19.042 Primary osteoarthritis, left hand; M19.071 Primary osteoarthritis, right ankle and foot; M19.072 Primary osteoarthritis, left ankle and foot; M17.0 Bilateral primary osteoarthritis of knee; G47.9 Sleep disorder, unspecified; I10 Essential (primary) hypertension; I25.10 Atherosclerotic heart disease of native coronary artery without angina pectoris; K21.9 Gastro-esophageal reflux disease without esophagitis
CPT/HCPCS: 99214

== ENCOUNTER 2023-10-03 11:03 | Outpatient (REF) | payer MEDICARE, SELFPAY ==
[2023-10-03 13:32] LABS: MANUAL DIFF FLAG NO
[2023-10-03 13:38] LABS: Basophils Absolute Auto 0.1 X10*3/uL (0.0-0.2); Basophils Percent Auto 0.7 % (0-2); Eosinophils Absolute Auto 0.4 X10*3/uL (0.0-0.4); Eosinophils Percent Auto 6.4 % (0-4); Hematocrit 36.7 % (37.0-47.0); Hemoglobin 11.8 g/dl (12.0-16.0); Imm Gran Abs Auto 0.02 X10*3/uL (0.00-0.03); Imm Gran Pct Auto 0.3 % (0.0-0.4); Lymphocytes Absolute Auto 0.9 X10*3/uL (1.2-4.9); Lymphocytes Percent Auto 13.9 % (20-40); Mean Corpuscular HGB Conc 32.2 g/dl (31.0-35.0); Mean Corpuscular Hemoglobin 29.8 pg (27.0-33.0); Mean Corpuscular Volume 92.7 fL (80.0-98.0); Mean Platelet Volume 9.5 fL (9.4-12.3); Monocytes Absolute Auto 0.8 X10*3/uL (0.1-1.2); Monocytes Percent Auto 11.4 % (2-11); Neutrophils Absolute Auto 4.5 x10*3/uL (2.0-8.3); Neutrophils Percent Auto 67.3 % (45-73); Platelet Count 350 X10*3/uL (160-400); Red Blood Count 3.96 X10*6/uL (4.20-5.50); Red Cell Distribution Width 15.4 % (11.0-16.0); White Blood Count 6.7 X10*3/uL (4.8-10.8)
[2023-10-03 14:17] LABS: Albumin Level 4.1 g/dL (3.5-5.0); Anion Gap 11 (12-20); Calcium 9.3 mg/dL (8.4-10.2); Carbon Dioxide 27 mmol/L (22-29); Chloride 103 mmol/L (96-108); Potassium 4.1 mmol/L (3.3-5.1); Sodium 137 mmol/L (135-145); Total Protein 7.4 g/dL (6.5-8.0)
[2023-10-03 14:24] LABS: Alanine Aminotransferase 20 U/L (0-31); Alkaline Phosphatase 95 U/L (39-117); Aspartate Amino Transferase 53 U/L (5-31); Bilirubin Total 0.4 mg/dL (0.0-1.0); Blood Urea Nitrogen 19 mg/dL (9-16); Estimated Glomerular Filt Rate > 60; Glucose Random 97 mg/dL (60-115)
[2023-10-04 15:32] LABS: LDL Cholesterol Direct 52 mg/dL (<100)
== END 2023-10-03 11:04 | disposition home or self-care (01) ==
LOC: HO.HMGCLDS 11:03
PROVIDERS: PCP Internal Medicine; Visit Provider Internal Medicine
DX: I11.0 Hypertensive heart disease with heart failure (principal); I50.20 Unspecified systolic (congestive) heart failure; I25.10 Atherosclerotic heart disease of native coronary artery without angina pectoris; K21.9 Gastro-esophageal reflux disease without esophagitis
CPT/HCPCS: 36415; 80053; 83721; 85025

== ENCOUNTER 2024-01-14 13:09 | Outpatient (AMB) | payer MEDICARE, SELFPAY ==
[2024-01-14 13:18] VITALS: BP 136/78; PULSE 75; O2SAT 97; BMI 23.9
--- NOTE | 2024-01-14 13:18 | A.OFFPC_ITS ---
Vital Signs 01/14/24 13:18 Height 5 ft 3 in Weight 135 lb BMI 23.9 BP 136/78 Blood Pressure Location Lt brachial Position Sitting Pulse 75 Pulse Source Pulse Oximeter Pulse Oximetry (%) 97 Oxygen Delivery Method Room Air Intake Visit Reasons: Numbness on Finger Tips Allergies shellfish derived [SHELLFISH DERIVED] Allergy (Intermediate, Verified 01/14/24 13:20) THROAT CLOSING Sulfa (Sulfonamide Antibiotics) [SULFA (SULFONAMIDE ANTIBIOTICS)] Allergy (Mild, Verified 01/14/24 13:20) FLU LIKE SYMPTOMS Medication List - Last Reconciled 01/14/24 by Leslie Canseco MD amlodipine 5 mg PO DAILY aspirin 81 mg PO DAILY atorvastatin 80 mg PO DAILY carvedilol 25 mg PO BID furosemide 20 mg PO DAILY lorazepam 0.5 mg PO DAILY PRN 90 days losartan 100 mg PO DAILY meloxicam 15 mg PO DAILY 90 days omeprazole magnesium 40 mg (2 x 20 mg) PO DAILY 30 days Tobacco use date assessed: 01/14/24 Fall risk assessment: 1 Fall in past year Last assessed Fall Risk: 01/14/24 Dental Screening Dental Screen Date: 01/14/24 Did you have a dental visit in the last 12 months?: Yes Did you have a dental problem in the last 6 months where you did not have access to dental care?: No Was dental information given to patient?: Patient has dentist HPI Numbness on Finger Tips HPI Details Patient came in today to talk about numbness in her fingertips, I see that she is also due for her regular follow-up appointment Patient says that for the past 1 month she has noticed that her fingertips her getting more and more numb She does not have any pain in her neck there is no weakness or numbness in her arms. Upon further discussion she told me that she has a big heavy dog that she walks 2 times a day and he continued to pull on her hands She hold the leash with both of her hands, patient have severe osteoarthritis both hands to begin with. She said that she can not stop walking the dog I have ordered EMG nerve conduction study to further evaluate before management. Meanwhile I have told her to start taking B complex tablet [id number] Anxiety is stable patient is taking lorazepam at night as needed to sleep as a sleep aid and for anxiety. Medications sent 90 tablets GERD is stable, patient is on pantoprazole 40 mg Blood pressure is stable as well patient is on losartan 100 mg and amlodipine 5 mg Patient is on atorvastatin 80 mg through Cardiology as a preventive medication for coronary artery disease Echocardiogram done April of last year reviewed Which showed 1. Normal LV ejection fraction 55-60% with impaired relaxation filling pattern and elevated filling pressures 2. Mildly dilated left atrium 3. Mild aortic stenosis and regurgitatio n 4. Mild mitral regurgitation 5. Normal RV systolic pressure 6. No pericardial effusion Her Lasix was stopped [facility] Medical History CAD (coronary artery disease) HTN (hypertension) Heart failure with reduced ejection fraction Congestive heart failure CHD (congenital heart disease) Eczema Surgical History Status post creation of urethral sling by suprapubic approach Basal cell carcinoma Shoulder arthritis H/O cardiac catheterization Social History Housing: House Alcohol intake: current Alcohol intake frequency: holidays/special occasions only Alcohol type: hard liquor Patient Tobacco Use Status: Former Tobacco user e-Cigarette/Vaping Use: Never Used service: No Current occupational status: retired Cognitive needs: No Hearing needs: No Vision needs: Yes (contacts) Questionnaire Thrive Questionnaire Date Thrive assessed: 11/13/22 AUDIT C Alcohol Use Questionnaire (AUDIT-C) 1. How often do you have a drink containing alcohol?: Monthly or less 2. How many drinks containing alcohol do you have on a typical day when you are drinking?: 1 or 2 3. How often do you have six or more drinks on one occasion?: Never Total Score: 1 Score Reviewed/Action Taken: Yes DANELLE-7 AMB Questionnaire DANELLE-7 Date DANELLE - 7 assessed: 11/13/22 Source: Developed by Drs. Flo Hunter, Ruby Krishna, Joaquín White and colleagues, with an educational miguelangel from [employer]. Review of Systems Const Denies chills and Denies fever(s) ENT Denies epistaxis and Denies nasal discharge Card Denies chest pain Resp Denies chest congestion, Denies cough and Denies hemoptysis GI Denies diarrhea and Denies nausea Skin/Breast Denies rash Neuro Reports no additional complaints Psych Reports no additional complaints Endo Reports no additional complaints Physical exam (Primary Care) Vital Signs: Last Vital Signs Pulse 75 01/14/24 13:18 BP 136/78 01/14/24 13:18 Pulse Ox 97 01/14/24 13:18 Oxygen Delivery Method Room Air 01/14/24 13:18 BMI result Body Mass Index 23.9 Tobacco/Smoking Status: Tobacco use Status Tobacco use date assessed 01/14/24 01/14/24 13:23 Patient Tobacco Use Status Former Tobacco user 01/14/24 13:23 e-Cigarette/Vaping Use Never Used 01/14/24 13:23 Thrive Assessment: Date of Thrive Assessment Date Thrive assessed 11/13/22 01/14/24 13:23 Const General: cooperative, comfortable and no acute distress Orientation/consciousness: patient oriented x3 HENMT Head: Yes normocephalic Eyes General: appearance normal, both eyes and all related structures Neck Neck: Yes supple Resp Effort & Inspection: normal respiratory effort, no cough and no stridor Cardio Rhythm: regular rhythm Heart sounds: S1 normal heart sound present and S2 normal heart sound present Skin General skin exam: turgor normal Neuro General: patient oriented x3, tone normal and moves all extremities Extrem Other: Sensory grossly diminished fingertips osteoarthritis prominent small joints hands bilateral Right lower extremity: no edema Left lower extremity: no edema Assessment and Plan Assessment & Plan (1) Paresthesia of hand, bilateral: Code(s): R20.2 - Paresthesia of skin (2) Primary osteoarthritis of hands, bilateral: Code(s): M19.041 - Primary osteoarthritis, right hand; M19.042 - Primary osteoarthritis, left hand (3) Primary osteoarthritis of feet, bilateral: Code(s): M19.071 - Primary osteoarthritis, right ankle and foot; M19.072 - Primary osteoarthritis, left ankle and foot (4) Bilateral primary osteoarthritis of knee: Code(s): M17.0 - Bilateral primary osteoarthritis of knee (5) Difficulty sleeping: Code(s): G47.9 - Sleep disorder, unspecified (6) HTN (hypertension): Code(s): I10 - Essential (primary) hypertension Qualifiers: Hypertension type: primary hypertension Qualified Code(s): I10 - Essential (primary) hypertension (7) CAD (coronary artery disease): Code(s): I25.10 - Atherosclerotic heart disease of [place] coronary artery without angina pectoris Qualifiers: Associated angina: without angina Coronary Disease-Associated Artery/Lesion type: [place] artery [place] vs. transplanted heart: [place] heart Qualified Code(s): I25.10 - Atherosclerotic heart disease of [place] coronary artery without angina pectoris (8) Chronic GERD: Code(s): K21.9 - Gastro-esophageal reflux disease without esophagitis Plan Patient came in today to talk about numbness in her fingertips, I see that she is also due for her regular follow-up appointment Patient says that for the past 1 month she has noticed that her fingertips her getting more and more numb She does not have any pain in her neck there is no weakness or numbness in her arms. Upon further discussion she told me that she has a big heavy dog that she walks 2 times a day and he continued to pull on her hands She hold the leash with both of her hands, patient have severe osteoarthritis both hands to begin with. She said that she can not stop walking the dog I have ordered EMG nerve conduction study to further evaluate before management. Meanwhile I have told her to start taking B complex tablet [id number] Anxiety is stable patient is taking lorazepam at night as needed to sleep as a sleep aid and for anxiety. Medications sent 90 tablets GERD is stable, patient is on pantoprazole 40 mg Blood pressure is stable as well patient is on losartan 100 mg and amlodipine 5 mg Patient is on atorvastatin 80 mg through Cardiology as a preventive medication for coronary artery disease Echocardiogram done April of last year reviewed Which showed 1. Normal LV ejection fraction 55-60% with impaired relaxation filling pattern and elevated filling pressures 2. Mildly dilated left atrium 3. Mild aortic stenosis and regurgitation 4. Mild mitral regurgitation 5. Normal RV systolic pressure 6. No pericardial effusion Her Lasix was stopped Orders: Orders NE nerve conduction velocity Today R20.2 - Paresthesia of skin NE electromyogram (EMG) Today R20.2 - Paresthesia of skin Medications: Refilled lorazepam Medication will only be filled at office visit next time 0.5 mg PO DAILY PRN 90 tabs 0RF sleep 90 days G47.9 - Sleep disorder, unspecified Coding Level of Care Code Est Pt Level 4 (26322) Diagnoses Paresthesia of hand, bilateral R20.2 Primary osteoarthritis of hands, bilateral M19.041; M19.042 Primary osteoarthritis of feet, bilateral M19.071; M19.072 Bilateral primary osteoarthritis of knee M17.0 Difficulty sleeping G47.9 Primary hypertension I10 Hypertension type: primary hypertension Coronary artery disease involving [place] coronary artery of [place] heart without angina pectoris I25.10 Associated angina: without angina Coronary Disease-Associated Artery/Lesion type: [place] artery [place] vs. transplanted heart: [place] heart Chronic GERD K21.9
== END 2024-01-14 14:14 | disposition home or self-care (01) ==
PROVIDERS: PCP Internal Medicine; Visit Provider Internal Medicine
DX: R20.2 Paresthesia of skin (principal); M19.041 Primary osteoarthritis, right hand; M19.042 Primary osteoarthritis, left hand; M19.071 Primary osteoarthritis, right ankle and foot; M19.072 Primary osteoarthritis, left ankle and foot; M17.0 Bilateral primary osteoarthritis of knee; G47.9 Sleep disorder, unspecified; I10 Essential (primary) hypertension; I25.10 Atherosclerotic heart disease of native coronary artery without angina pectoris; K21.9 Gastro-esophageal reflux disease without esophagitis
CPT/HCPCS: 99214

== ENCOUNTER 2024-02-18 07:55 | Outpatient (REF) | payer MEDICARE, SELFPAY ==
--- NOTE | ~2024-02-18 | MM_ITS ---
EXAMINATION: BONE DENSITOMETRY CLINICAL INDICATION: Unspecified kyphosis. COMPARISON: Previous BD dated 07/08/2019 and baseline BD dated 01/24/2015. TECHNIQUE: Using a [employer] DXA System (software version: 13.1) manufactured by [employer], dual-energy x-ray absorptiometry was performed of the lumbar spine and left hip. The images are of good technical quality. Summary results are attached. FINDINGS: LEFT FEMUR, NECK: Current: BMD 0.764 g/cm2, Z-score -0.1, T-score -2.0, osteopenia. Prior: BMD 0.803 g/cm2. Baseline: BMD 0.772 g/cm2. LEFT FEMUR, TOTAL: Current: BMD 0.823 g/cm2, Z-score 0.3, T-score -1.5, osteopenia, 8.9% decrease from previous, 5.1% decrease from baseline (<5% change is not significant). Prior: BMD 0.903 g/cm2. Baseline: BMD 0.867 g/cm2. AP SPINE L1-L3 (excluding L4): The data of L1-L4 has been changed to exclude the L4 vertebral body, because degenerative sclerosis at this level may cause overestimation of lumbar spine density. Current: BMD 1.237 g/cm2, Z-score 2.3, T-score 0.6, normal, 4.9% increase from previous, 4.9% increase from baseline (<5% change is not significant). Prior: BMD 1.179 g/cm2. Baseline: BMD 1.179 g/cm2. IDENTIFIED RISK FACTORS: Menopause, height loss, history of fracture (adult), glucocorticoids (chronic). HISTORY OF FRACTURE: Shoulder. MEDICATIONS: None listed. MM/XR DEXA axial skeleton IMPRESSION: 1. DIAGNOSIS: Osteopenia based on the lowest T-score value of -2.0 in the femoral neck applying World Health Organization criteria. 2. 10-YEAR FRACTURE RISK PREDICTION, FRAX: Major osteoporotic fracture (clinical spine, forearm, hip or shoulder) 29.9%. Hip fracture 8.4%. 3. Treatment Recommendations: NOF guidelines recommend consideration for treatment in postmenopausal women and men age 50 and older presenting with the following: -A hip or vertebral (clinical or morphometric) fracture. -T-score less than or equal to -2.5 at the femoral neck or spine after appropriate evaluation to exclude secondary causes. -Low bone mass at the hip or spine and a 10-year fracture probability by FRAX of greater than or equal to 3% for hip fracture or greater than or equal to 20% for major osteoporotic fracture based on the [place] adapted WHO algorithm. 4. Other Recommendations: All treatment decisions require clinical judgment and consideration of individual patient factors, including patient preferences, comorbidities, previous drug use, risk factors not captured in the FRAX model (e.g. frailty, falls, vitamin D deficiency, increased bone turnover, interval significant decline in bone density) and possible under or overestimation of fracture risk by FRAX. Additional medical evaluation for secondary cause of low bone mineral density may be appropriate. FUTURE SCAN RECOMMENDATION: People with diagnosed cases of osteoporosis or at high risk for fracture should have regular bone mineral density tests. For patients eligible for Medicare, routine testing is allowed once every 2 years. The testing frequency can be increased to one year for patients who have rapidly progressing disease, those who are receiving or discontinuing medical therapy to restore bone mass, or have additional risk factors.
== END 2024-02-18 07:56 | disposition home or self-care (01) ==
LOC: HO.MAMMO 07:55
PROVIDERS: PCP Internal Medicine; Visit Provider Internal Medicine
DX: Z13.820 Encounter for screening for osteoporosis (principal); Z78.0 Asymptomatic menopausal state; M40.209 Unspecified kyphosis, site unspecified
CPT/HCPCS: 77080

== ENCOUNTER 2024-02-24 08:40 | Outpatient (REF) | payer MEDICARE, SELFPAY ==
--- NOTE | 2024-02-24 08:42 | EMG_ITS ---
Bilateral median and ulnar motor and sensory studies were performed. Bilateral radial and median and lateral antecubital sensory studies were performed and paraspinal muscles were tested with a needle. IMPRESSION: 1. 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 2. Mild bilateral ulnar neuropathy across elbow. MD ALAINA Teran/HAILEE / [id number]
== END 2024-02-24 08:41 | disposition home or self-care (01) ==
LOC: HO.NEURO 08:40
PROVIDERS: PCP Internal Medicine; Visit Provider Internal Medicine
DX: R20.2 Paresthesia of skin (principal)
CPT/HCPCS: 95886; 95913

== ENCOUNTER 2024-03-19 07:32 | Outpatient (AMB) | payer MEDICARE, SELFPAY ==
--- NOTE | 2024-03-19 07:34 | A.OFFPC_ITS ---
Intake Visit Reasons: Discuss Nerve Study~ [phone] I phone Allergies shellfish derived [SHELLFISH DERIVED] Allergy (Intermediate, Verified 03/19/24 07:35) THROAT CLOSING Sulfa (Sulfonamide Antibiotics) [SULFA (SULFONAMIDE ANTIBIOTICS)] Allergy (Mild, Verified 03/19/24 07:35) FLU LIKE SYMPTOMS Medication List - Last Reconciled 03/19/24 by Leslie Canseco MD amlodipine 5 mg PO DAILY aspirin 81 mg PO DAILY atorvastatin 80 mg PO DAILY carvedilol 25 mg PO BID furosemide 20 mg PO DAILY lorazepam 0.5 mg PO DAILY PRN 90 days losartan 100 mg PO DAILY meloxicam 15 mg PO DAILY 90 days omeprazole magnesium 40 mg (2 x 20 mg) PO DAILY 90 days Tobacco use date assessed: 03/19/24 Fall risk assessment: No Falls in past year Last assessed Fall Risk: 03/19/24 Dental Screening Dental Screen Date: 03/19/24 Did you have a dental visit in the last 12 months?: No Was dental information given to patient?: Patient has dentist HPI Discuss Nerve Study~ [phone] I phone HPI Details Patient is 73-year-old female this is telemedicine visit to go over her bone density report and nerve conduction study Bone density showed Osteopenia based on the lowest T-score value of -2.0 Management discussed with the patient in detail, calcium rich in vitamin rich foods are recommended Weight-bearing exercises which patient is already doing, I have added Fosamax 70 mg once a week, patient was advised to take it on empty stomach and stay upright for half an hour Nerve conduction study showed 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 2. 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 She agreed to have surgery, I have placed a referral for patient to see Orthopedic at [facility] as per her wishes REPLACED BY [facility] Medical History CAD (coronary artery disease) HTN (hypertension) Heart failure with reduced ejection fraction Congestive heart failure CHD (congenital heart disease) Eczema Surgical History Status post creation of urethral sling by suprapubic approach Basal cell carcinoma Shoulder arthritis H/O cardiac catheterization Social History Housing: House Alcohol intake: current Alcohol intake frequency: holidays/special occasions only Alcohol type: hard liquor Patient Tobacco Use Status: Former Tobacco user e-Cigarette/Vaping Use: Never Used service: No Current occupational status: retired Cognitive needs: No Hearing needs: No Vision needs: Yes (contacts) Questionnaire PHQ-9 Over the last 2 weeks, how often have you been bothered by any of the following problems? 1. Little interest or pleasure in doing things: not at all 2. Feeling down, depressed, or hopeless: not at all 3. Trouble falling or staying asleep, or sleeping too much: not at all 4. Feeling tired or having little energy: not at all 5. Poor appetite or overeating: not at all 6. Feeling bad about yourself - or that you are a failure or have let yourself or your family down: not at all 7. Trouble concentrating on things, such as reading the newspaper or watching television: not at all 8. Moving or speaking so slowly that other people could have noticed. Or the opposite - being so fidgety or restless that you have been moving around a lot more than usual: not at all 9. Thoughts that you would be better off or of hurting yourself in some way: not at all Total score: 0 Depression Screening Interpretation: Negative Depression Screening Done: Yes 71110 - PHQ-9 Billing: Yes Source: Developed by Drs. Flo Hunter, Ruby Krishna, Joaquín White and colleagues, with an educational miguelangel from [employer]. Thrive Questionnaire Date Thrive assessed: 03/19/24 I am a: Patient What is your living situation today?: I have a steady place to live Within the past 12 months, did the food you bought not last and you didn't have the money to get more?: Never true Within the past 12 months, did you worry whether your food would run out before you got money to buy more?: Never true Do you have trouble paying for medicines?: No Do you have trouble getting transportation to medical appointments?: No Do you have trouble paying your heating and electricity bill?: No Do you have trouble taking care of your child, family member or friend?: No Do you have trouble with day-to-day activities such as bathing, preparing meals, shopping, managing finances, etc.?: No Are you currently unemployed and looking for a job?: No Are you interested in more education?: No THRIVE Score: 0 DANELLE-7 AMB Questionnaire DNAELLE-7 Date DANELLE - 7 assessed: 03/19/24 Feeling nervous, anxious, or on edge: 0 = Not at all Not being able to stop or control worryin = Not at all Worrying too much about different things: 0 = Not at all Trouble relaxin = Not at all Being so restless that it is hard to sit still: 0 = Not at all Becoming easily annoyed or irritable: 0 = Not at all Feeling afraid as if something awful might happen: 0 = Not at all Total DANELLE-7 score (0-4 normal; 5-9 mild; 10-14 moderate; 15-21 severe): 0 Source: Developed by Drs. Flo Hunter, Ruby Krishna, Joauqín White and colleagues, with an educational miguelangel from [employer]. Review of Systems Const Denies chills and Denies fever(s) ENT Denies epistaxis and Denies nasal discharge Card Denies chest pain Resp Denies chest congestion, Denies cough and Denies hemoptysis GI Denies diarrhea and Denies nausea Skin/Breast Denies rash Neuro Reports no additional complaints Psych Reports no additional complaints Endo Reports no additional complaints Physical exam (Primary Care) Tobacco/Smoking Status: Tobacco use Status Tobacco use date assessed 03/19/24 03/19/24 07:38 Patient Tobacco Use Status Former Tobacco user 03/19/24 07:34 e-Cigarette/Vaping Use Never Used 03/19/24 07:34 PHQ-9: PHQ-9 Score PHQ-9: Total score 0 03/19/24 07:38 Depression Screening Interpretation: Negative Thrive Assessment: Date of Thrive Assessment Date Thrive assessed 03/19/24 03/19/24 07:38 Telehealth Telehealth Telehealth Platform: [facility] Location of provider rendering services: practice address Location of patient: address on file Patient Identification confirmed using: Name, : Yes Telehealth method: voice only Patient verbally consented to treatment: Yes Patient verbally consented to billing insurance company: Yes Patient informed of any privacy concerns related to visit: Yes Minutes spent on Phone/Video with Pt.: 16 Assessment and Plan Assessment & Plan (1) Carpal tunnel syndrome of right wrist: Code(s): G56.01 - Carpal tunnel syndrome, right upper limb (2) Carpal tunnel syndrome of left wrist: Code(s): G56.02 - Carpal tunnel syndrome, left upper limb Plan Patient is 73-year-old female this is telemedicine visit to go over her bone density report and nerve conduction study Bone density showed Osteopenia based on the lowest T-score value of -2.0 Management discussed with the patient in detail, calcium rich in vitamin rich foods are recommended Weight-bearing exercises which patient is already doing, I have added Fosamax 70 mg once a week, patient was advised to take it on empty stomach and stay upright for half an hour Nerve conduction study showed 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 2. Mild bilateral ulnar neuropathy across elbow. She agreed to have surgery, I have placed a referral for patient to see Orthopedic at [facility] as per her wishes Orders: Referrals Orthopedics Referral G56.01 - Carpal tunnel syndrome, right upper limb, G56.02 - Carpal tunnel syndrome, left upper limb Medications: New alendronate (Fosamax) Stay upright for half an hour after taking the medication, take medication on empty stomach once a week 70 mg PO QWEEK 90 days 13 tabs 0RF Coding Level of Care Code Tele Est Pt Level 3 (54298) Diagnoses Carpal tunnel syndrome of right wrist G56.01 Carpal tunnel syndrome of left wrist G56.02
--- OUTSIDE RECORDS SUMMARY | 2024-03-19 07:34 | XMS_ITS | Continuity of Care Document ---
Author Organization [facility] Address [address] [place] [address]- Care Team Providers Care Drier Tender Naphthalene Name Role Phone Ajith PAINTER, Asma Primary Care Physician Encounter 01/18/22 - 01/24/22 [facility] [address] [place] [phone] Discharge Disposition: GOALS MET Allergies, Adverse Reactions, Alerts Substance Reaction Severity Status sulfa drugs anaphalaxis Rash Active shellfish anaphalaxis Rash Active Immunizations Given and Recorded Vaccine Date Status Refusal Reason influenza virus vaccine, inactivated 06/20/18 Yonatan rded influenza virus vaccine, inactivated 09/03/17 Give n pneumococcal 13-valent vaccine 10/21/14 Recorded pneumococcal 23-valent vaccine 10/20/13 Recorded tetanus/diphtheria/pertussis, acel(Tdap) 10/20/11 Recorded Medications acetaminophen 325 mg oral tablet 650 mg, By Mouth, Every 6 hours, May take OTC not to exceed 3000 mg/day, Refills 0, Maintenance, 01/17/22 8:22:00 EDT, Partial fill upon patient request if the prescription is for a schedule II opioid drug. Start Date: 01/17/22 Status: Ordered amLODIPine 5 mg oral tablet 5 mg, 1, tablet, By Mouth, Daily, # 30 tablet, Refills 0, Maintenance, 09/24/19 8:37:24 EST Start Date: 09/24/19 Status: Ordered Coreg 25 mg oral tablet 25 mg, 1, tablet, By Mouth, 2 times a day, # 180 tablet, Refills 0, Maintenance, 07/26/19 8:58:10 EDT Start Date: 07/26/19 Status: Ordered docusate sodium 100 mg oral capsule 1 capsule = 100 mg, By Mouth, 2 times a day, # 60 capsule, 0 Refills, Maintenance, 01/17/22 8:15:00EDT, Capsule, [facility], Partial fill upon patient request if the prescription is for a schedule II opioid drug., 160, cm, 01/17/22 6:38... Start Date: 01/17/22 Status: Ordered Ecotrin 325 mg oral delayed release tablet 1 tablet = 325 mg, By Mouth, 2 times a day, # 60 tablet, 0 Refills, Maintenance, 01/17/22 8:15:00 EDT, EC Tablet, [facility], Partial fill upon patient request if the prescription is for a schedule II opioid drug., 160, cm, 01/17/22 6:38... Start Date: 01/17/22 Stop Date: 02/16/22 Status: Ordered furosemide 20 mg oral tablet 20 mg, By Mouth, Daily, # 30 tablet, Refills 0, Tot. Refills 0, Maintenance, 09/03/17 12:21:15, Route to Pharmacy Electronically, [id number], [facility] 3 Start Date: 09/03/17 Stop Date: 10/03/17 Status: Ordered Lipitor 80 mg oral tablet = 80 mg, By Mouth, Daily at bedtime, # 30 tablet, 0 Refills, Maintenance, Tablet, Route to PharmacyElectronically, [id number], [facility] Start Date: 09/03/17 Stop Date: 10/03/17 Status: Ordered losartan 100 mg oral tablet 1 tablet = 100 mg, By Mouth, Daily, # 30 tablet, 0 Refills, Maintenance, 10/07/18 8:53:09 EST, Tablet Start Date: 10/07/18 Status: Ordered meloxicam 15 mg oral tablet 1 tablet = 15 mg, By Mouth, Daily, # 30 tablet, 0 Refills, Maintenance, 01/17/22 8:16:00 EDT, Tablet, [facility], Partial fill upon patient request if the prescription is for a scheduleII opioid drug., 160, cm, 01/17/22 6:38:00 EDT, Hei... Start Date: 01/17/22 Status: Ordered MiraLax Powder 1 pack/packet = 17 Gm, By Mouth, Daily, PRN Constipation, 0 Refills, Maintenance, 01/17/22 8:22:00 EDT, Powder, Partial fill upon patient request if the prescription is for a schedule II opioid drug. Start Date: 01/17/22 Status: Ordered pantoprazole 40 mg oral delayed release tablet 1 tablet = 40 mg, By Mouth, Daily, # 30 tablet, 0 Refills, Maintenance, 12/28/21 9:10:00 EST, EC Tablet Start Date: 12/28/21 Status: Ordered senna 187 mg oral tablet 1 tablet = 8.6 mg, By Mouth, Daily at bedtime, PRN as needed for constipation, 0 Refills, Maintenance, 01/17/22 8:22:00 EDT, Tablet, Partial fill upon patient request if the prescription is for a schedule II opioid drug. Start Date: 01/17/22 Status: Ordered Problem List Condition Effective Dates Status Health Status Inform ant Elevated AST (SGOT)(Confirmed) Active Atopic dermatitis(Confirmed) Active Basal cell carcinoma (BCC)(Confirmed) Active Nonischemic cardiomyopathy(Confirmed) Active CHF (congestive heart failure)(Confirmed) Active Esophageal dilatation(Confirmed) Active Eczema(Confirmed) Active Former smoker(Confirmed) Active History of one miscarriage(Confirmed) Active Hyperglycemia(Confirmed) Active Skin cancer(Confirmed) Active COPD, mild(Confirmed) Active Mitral regurgitation(Confirmed) Active Osteoarthritis of knee(Confirmed) Active Osteopenia(Confirmed) Active Pneumonia(Confirmed) Active (Confirmed) Active Esophageal stricture(Confirmed) Active Social History Social History Type Response Smoking Status Former smoker, quit more than 30 days ago entered on: 10/19/18 Sex
--- OUTSIDE RECORDS SUMMARY | 2024-03-19 07:34 | XMS_ITS | Continuity of Care Document ---
Author Organization [facility] ter Address [address] [place] [id number]- Care Team Providers Care Director Industrial Nursing Name Role Phone Ajith PAINTER, Asma Primary Care Physician Encounter [facility] [place] Date(s): 01/16/22 - 01/17/[address] [address] Discharge Disposition: A-Transfer VNA/Home Health Attending Physician: Levi Aguilar MD Admitting Physician: Levi Aguilar MD Referring Physician: Levi Aguilar MD Allergies, Adverse Reactions, Alerts Substance Reaction Severity [...] opioid drug. Start Date: 01/17/22 Status: Ordered Acetaminophen Tablet 650 mg, Tablet, By Mouth, 01/17/22 5:00:00 EDT Start Date: 01/17/22 Stop Date: 01/17/22 Status: Completed Acetaminophen Tablet 650 mg, Tablet, By Mouth, 01/17/22 11:00:00 EDT Start Date: 01/17/22 Stop Date: 01/17/22 Status: Completed amLODIPine 5 mg oral tablet 5 mg, 1, tablet, By Mouth, Daily, # 30 tablet, Refills 0, Maintenance, 09/24/19 8:37:24 EST Start Date: 09/24/19 Status: Ordered amLODIPine 5 mg oral tablet 5 mg, Tablet, By Mouth, 01/17/22 9:00:00 EDT Start Date: 01/17/22 Stop Date: 01/17/22 Status: Completed carvedilol 25 mg oral tablet 25 mg, Tablet, By Mouth, 01/17/22 9:00:00 EDT Start Date: 01/17/22 Stop Date: 01/17/22 Status: Completed Coreg 25 mg oral tablet 25 mg, 1, tablet, By Mouth, 2 times a day, # 180 tablet, Refills 0, Maintenance, 07/26/19 8:58:10 EDT Start Date: 07/26/19 Status: Ordered docusate sodium 100 mg oral capsule 1 capsule = 100 mg, By Mouth, 2 times a day, # 60 capsule, 0 Refills, Maintenance, 01/17/22 8:15:00EDT, Capsule, [facility], Partial fill upon patient request if the prescription is for a schedule II opioid drug., 160, cm, 01/17/22 6:38... Start Date: 01/17/22 Status: Ordered Ecotrin 325 mg oral delayed release tablet 1 tablet = 325 mg, By Mouth, 2 times a day, # 60 tablet, 0 Refills, Maintenance, 01/17/22 8:15:00 EDT, EC Tablet, [facility], Partial fill upon patient request if the prescription is for a schedule II opioid drug., 160, cm, 01/17/22 6:38... Start Date: 01/17/22 Stop Date: 02/16/22 Status: Ordered furosemide 20 mg oral tablet 20 mg, By Mouth, Daily, # 30 tablet, Refills 0, Tot. Refills 0, Maintenance, 09/03/17 12:21:15, Route to Pharmacy Electronically, [id number], [facility] Start Date: 09/03/17 Stop Date: 10/03/17 Status: Ordered Lipitor 80 mg oral tablet = 80 mg, By Mouth, Daily at bedtime, # 30 tablet, 0 Refills, Maintenance, Tablet, Route to PharmacyElectronically, [id number], [facility] Start Date: 09/03/17 Stop Date: 10/03/17 Status: Ordered losartan 100 mg oral tablet 1 tablet = 100 mg, By Mouth, Daily, # 30 tablet, 0 Refills, Maintenance, 10/07/18 8:53:09 EST, Tablet Start Date: 10/07/18 Status: Ordered losartan 50 mg oral tablet 100 mg, Tablet, By Mouth, Hold for: SBP less than 130, 01/17/22 9:00:00 EDT Start Date: 01/17/22 Stop Date: 01/17/22 Status: Completed meloxicam 15 mg oral tablet 1 tablet = 15 mg, By Mouth, Daily, # 30 tablet, 0 Refills, Maintenance, 01/17/22 8:16:00 EDT, Tablet, [facility], Partial fill upon patient request [...] opioid drug. Start Date: 01/17/22 Status: Ordered oxyCODONE 5 mg oral tablet See Instructions, PRN, 1-2 tablet By Mouth Every 4 hours, # 60 tablet, Refills 0, Tot. Refills 0, Acute 01/24/22 8:19:00 EDT, Pain , Severe, 01/17/22 8:19:00 EDT, Instructions Replace Required Details, Route to Pharmacy Electronically, [facility] Start Date: 01/17/22 Stop Date: 01/24/22 Status: Ordered pantoprazole 40 mg oral delayed [...] opioid drug. Start Date: 01/17/22 Status: Ordered traMADol 50 mg oral tablet See Instructions, PRN Pain , Mild, 1-2 tablet By Mouth Every 6 hours not to exceed 400 mg/day, # 56tablet, 0 Refills, Acute 01/24/22 8:18:00 EDT, 01/17/22 8:17:00 EDT, Tablet, [facility], Partial fill upon patient request if the presc... Start Date: 01/17/22 Stop Date: 01/24/22 Status: Ordered Problem List Condition Effective Dates [...] Pneumonia(Confirmed) Active (Confirmed) Active Esophageal stricture(Confirmed) Active Results Radiology Reports * Exam Date Time Procedure Performing Provider Status 01/16/22 10:53 PM Knee 1 or 2 Views Left Vivek Harman; Auth (Verified) Notes: (Knee 1 or 2 Views Left) Reason For Exam: Postop;Postop RESULT: Knee 1 or 2 Views Left Knee 1 or 2 Views Left, 2 views Reason: Postop; Clinical Question(s): Other:; Implant Position; Special Instructions: Do today at 2200, No flexed knee in the lateral position. Keep leg straight; 2 Views COMPARISON: None. FINDINGS: Patient is status post recent left knee total arthroplasty without evidence of hardware complication. There are expected postsurgical changes including subcutaneous emphysema and a probable suprapatellar effusion. IMPRESSION: Expected postoperative appearance following left knee total arthroplasty without evidence of complication. WSN: [id number] Ordering Physician: Alma Kinsey Dictated By: Beltran Nicole MD Dictated Date/Time: 01/16/22 11:44 p Reviewed By: Beltran Nicole MD Signed By: Beltran Nicole MD Signed Date/Time: 01/16/22 11:44 pm Transcribed By: SONAL Transcribed Date/Time: 01/16/22 11:44 pm Vital Signs Most recent to oldest [Reference Range]: 1 2 3 Height 160 cm (01/17/22 6:38 AM) 160 cm (01/17/22 4:06 AM) 160 cm (01/16/22 11:30 PM) Weight 67.2 kg (01/16/22 8:31 AM) 67.2 kg (01/16/22 6:11 AM) Oxygen Saturation [94-100 %] 99 % (01/17/22 6:38 AM) 98 % (01/17/22 4:06 AM) 97 % (01/16/22 11:30 PM) Pulse Rate [55-90 bpm] 72 bpm (01/17/22 7:28 AM) 72 bpm (01/17/22 6:38 AM) 72 bpm (01/17/22 4:06 AM) Body Mass Index [18.5-24.99] 26.25 *H* (01/16/22 8:31 AM) 26.25 *H* (01/16/22 6:11 AM) Blood Pressure [90-138/55-84 mm Hg] 128/82mm Hg (01/17/22 7:28 AM) 128/82mm Hg (01/17/22 7:28 AM) 128/82mm Hg (01/17/22 7:28 AM) Respiratory Rate [16-30 br/min] 18 br/min (01/17/22 8:30 AM) 16 br/min (01/17/22 6:38 AM) 18 br/min (01/17/22 4:16 AM) Temperature [96.8-100.4 DegF] 97.5 DegF (01/17/22 6:38 AM) 97.9 DegF (01/17/22 4:06 AM) 97.9 DegF (01/16/22 11:30 PM) Mode of Delivery (Oxygen) Room air (01/17/22 6:38 AM) Room air (01/17/22 4:06 AM) Room air (01/16/22 11:30 PM) Blood pressure sites Arm, right (01/17/22 6:38 AM) Arm, left (01/17/22 4:06 AM) Arm, left (01/16/22 11:30 PM) Temperature Route Oral (01/17/22 6:38 AM) Oral (01/17/22 4:06 AM) Oral (01/16/22 11:30 PM) Dry Weight 67.2 kg (01/16/22 6:11 AM) Social History Social History Type Response Smoking Status Former smoker, quit more than 30 days ago entered on: 10/19/18 Sex
--- OUTSIDE RECORDS SUMMARY | 2024-03-19 07:34 | XMS_ITS | Continuity of Care Document ---
Author Organization [facility] ter Address [address] [place] [address]- Care Team Providers Care Die Trimmer Name Role Phone Ajith PAINTER, Asma Primary Care Physician [place] [facility] [place] - 01/16/[address] [id number] Attending Physician: Levi Aguilar MD Admitting Physician: [...] 10/20/13 Recorded tetanus/diphtheria/pertussis, acel(Tdap) 10/20/11 Recorded Medications amLODIPine 5 mg oral tablet 5 mg, 1, tablet, By Mouth, Daily, # 30 tablet, Refills 0, Maintenance, 09/24/19 8:37:24 EST Start Date: 09/24/19 Status: Ordered aspirin 81 mg oral tablet 1 tablet = 81 mg, By Mouth, Daily, # 30 tablet, 0 Refills, Maintenance, 09/01/17 16:31:44, Tablet Start Date: 09/01/17 Status: Ordered Coreg 25 mg oral tablet 25 mg, 1, tablet, By Mouth, 2 times a day, # 180 tablet, Refills 0, Maintenance, 07/26/19 8:58:10 EDT Start Date: 07/26/19 Status: Ordered furosemide 20 mg oral tablet 20 mg, By Mouth, Daily, # 30 tablet, Refills 0, Tot. Refills 0, Maintenance, 09/03/17 12:21:15, Route to Pharmacy Electronically, [id number], [facility] Start Date: 09/03/17 Stop Date: 10/03/17 Status: Ordered Lipitor 80 mg oral tablet = 80 mg, By Mouth, Daily at bedtime, # 30 tablet, 0 Refills, Maintenance, Tablet, Route to PharmacyElectronically, [id number], [facility] Start Date: 09/03/17 Stop Date: 10/03/17 Status: Ordered losartan 100 mg oral tablet 1 tablet = 100 mg, By Mouth, Daily, # 30 tablet, 0 Refills, Maintenance, 10/07/18 8:53:09 EST, Tablet Start Date: 10/07/18 Status: Ordered meloxicam 15 mg oral tablet 1 tablet = 15 mg, By Mouth, Daily, # 30 tablet, 0 Refills, Maintenance, 10/07/18 8:53:00 EST, Tablet Start Date: 10/07/18 Status: Ordered pantoprazole 40 mg oral delayed release tablet 1 tablet = 40 mg, By Mouth, Daily, # 30 tablet, 0 Refills, Maintenance, 12/28/21 9:10:00 EST, EC Tablet Start Date: 12/28/21 Status: Ordered Problem List Condition Effective Dates [...]
--- OUTSIDE RECORDS SUMMARY | 2024-03-19 07:34 | XMS_ITS | Continuity of Care Document ---
Author Organization [facility] Address [address] [place] [address]- Care Team Providers Care Life Scientists Name Role Phone Ajith PAINTER, Asma Primary Care Physician [place] [facility] [place](s): 01/28/22 - 04/17/[address] [address] Discharge Disposition: A-D/C Home Attending Physician: Levi Aguilar MD Admitting Physician: [...] capsule, 0 Refills, Maintenance, 01/17/22 8:15:00EDT, Capsule, [facility], Partial fill upon patient request if the prescription is for a schedule II opioid drug., 160, cm, 01/17/22 6:38... Start Date: 01/17/22 Status: Ordered Ecotrin 325 mg oral delayed release tablet 1 tablet = 325 mg, By Mouth, 2 times a day, # 60 tablet, 0 Refills, Maintenance, 01/17/22 8:15:00 EDT, EC Tablet, [facility], Partial fill upon patient request if the prescription is for a schedule II opioid drug., 160, cm, 01/17/22 6:38... Start Date: 01/17/22 Stop Date: 02/16/22 Status: Ordered furosemide 20 mg oral tablet 20 mg, By Mouth, Daily, # 30 tablet, Refills 0, Tot. Refills 0, Maintenance, 09/03/17 12:21:15, Route to Pharmacy Electronically, [id number], [facility] Start Date: 09/03/17 Stop Date: 10/03/17 Status: Ordered Lipitor 80 mg oral tablet = 80 mg, By Mouth, Daily at bedtime, # 30 tablet, 0 Refills, Maintenance, Tablet, Route to PharmacyElectronically, [id number], [facility] Start Date: 09/03/17 Stop Date: 10/03/17 Status: Ordered losartan 100 mg oral tablet 1 tablet = 100 mg, By Mouth, Daily, # 30 tablet, 0 Refills, Maintenance, 10/07/18 8:53:09 EST, Tablet Start Date: 10/07/18 Status: Ordered meloxicam 15 mg oral tablet 1 tablet = 15 mg, By Mouth, Daily, # 30 tablet, 0 Refills, Maintenance, 01/17/22 8:16:00 EDT, Tablet, [facility] 3, Partial fill upon patient request [...]
--- OUTSIDE RECORDS SUMMARY | 2024-03-19 07:34 | XMS_ITS | Continuity of Care Document ---
Author Organization [facility] Address [address] [place] [address]- Care Team Providers Care Shipping Clerk Crating Name Role Phone Ajiht PAINTER, Asma Primary Care Physician Encounter [facility] [place] Date(s): 03/01/22 - 03/31/[address] [address] Attending Physician: Cecilia Calderon Admitting Physician: AdmtrCecilia Referring Physician: Admtr, Ar8 Allergies, Adverse Reactions, Alerts Substance Reaction Severity [...] capsule, 0 Refills, Maintenance, 01/17/22 8:15:00EDT, Capsule, [facility], Partial fill upon patient request if the prescription is for a schedule II opioid drug., 160jeremi, 01/17/22 6:38... Start Date: 01/17/22 Status: Ordered Ecotrin 325 mg oral delayed release tablet 1 tablet = 325 mg, By Mouth, 2 times a day, # 60 tablet, 0 Refills, Maintenance, 01/17/22 8:15:00 EDT, EC Tablet, [facility], Partial fill upon patient request if the prescription is for a schedule II opioid drug., 160jeremi, 01/17/22 6:38... Start Date: 01/17/22 Stop Date: 02/16/22 Status: Ordered furosemide 20 mg oral tablet 20 mg, By Mouth, Daily, # 30 tablet, Refills 0, Tot. Refills 0, Maintenance, 09/03/17 12:21:15, Route to Pharmacy Electronically, [id number], [facility] Start Date: 09/03/17 Stop Date: 10/03/17 Status: Ordered Lipitor 80 mg oral tablet = 80 mg, By Mouth, Daily at bedtime, # 30 tablet, 0 Refills, Maintenance, Tablet, Route to PharmacyElectronically, [id number], [facility] Start Date: 09/03/17 Stop Date: 10/03/17 Status: Ordered losartan 100 mg oral tablet 1 tablet = 100 mg, By Mouth, Daily, # 30 tablet, 0 Refills, Maintenance, 10/07/18 8:53:09 EST, Tablet Start Date: 10/07/18 Status: Ordered meloxicam 15 mg oral tablet 1 tablet = 15 mg, By Mouth, Daily, # 30 tablet, 0 Refills, Maintenance, 01/17/22 8:16:00 EDT, Tablet, [facility], Partial fill upon patient request if [...]
--- OUTSIDE RECORDS SUMMARY | 2024-03-19 07:34 | XMS_ITS | Continuity of Care Document ---
Author Organization [facility] Address [address] [place] [address]- Care Team Providers Care Semiconductor Development Technician Name Role Phone Ajith PAINTER, Asma Primary Care Physician [place] [facility] [place](s): 12/28/21 - 01/27/[address] [address] Attending Physician: AdmCecilia duarte Admitting Physician: AdmtrCecilia Referring Physician: Admtr, Tre8 Allergies, Adverse Reactions, Alerts Substance Reaction Severity [...] capsule, 0 Refills, Maintenance, 01/17/22 8:15:00EDT, Capsule, [facility], Partial fill upon patient request if the prescription is for a schedule II opioid drug., 160, cm, 01/17/22 6:38... Start Date: 01/17/22 Status: Ordered Ecotrin 325 mg oral delayed release tablet 1 tablet = 325 mg, By Mouth, 2 times a day, # 60 tablet, 0 Refills, Maintenance, 01/17/22 8:15:00 EDT, EC Tablet, [facility], Partial fill upon patient request if the prescription is for a schedule II opioid drug., 160, cm, 01/17/22 6:38... Start Date: 01/17/22 Stop Date: 02/16/22 Status: Ordered furosemide 20 mg oral tablet 20 mg, By Mouth, Daily, # 30 tablet, Refills 0, Tot. Refills 0, Maintenance, 09/03/17 12:21:15, Route to Pharmacy Electronically, [id number], [facility] Start Date: 09/03/17 Stop Date: 10/03/17 Status: Ordered Lipitor 80 mg oral tablet = 80 mg, By Mouth, Daily at bedtime, # 30 tablet, 0 Refills, Maintenance, Tablet, Route to PharmacyElectronically, [id number], [facility] Start Date: 09/03/17 Stop Date: 10/03/17 Status: Ordered losartan 100 mg oral tablet 1 tablet = 100 mg, By Mouth, Daily, # 30 tablet, 0 Refills, Maintenance, 10/07/18 8:53:09 EST, Tablet Start Date: 10/07/18 Status: Ordered meloxicam 15 mg oral tablet 1 tablet = 15 mg, By Mouth, Daily, # 30 tablet, 0 Refills, Maintenance, 01/17/22 8:16:00 EDT, Tablet, [facility], Partial fill upon patient request [...]
--- OUTSIDE RECORDS SUMMARY | 2024-03-19 07:34 | XMS_ITS | Continuity of Care Document ---
Author Organization [facility] Delia Butler n's [facility] Address [address], [address] [address]- Care Team Providers Care Orientor Name Role Phone Ajith PAINTER, Asma Primary Care Physician [place] [facility] [place]s): 01/16/24 - 02/15/24 [facility] Delia Mendozas [facility] [address] [place], [place] [address] Attending Physician: AdmCecilia duarte Admitting Physician: AdmtrCecilia Referring Physician: Admtr, Ar8 [...] capsule, 0 Refills, Maintenance, 01/17/22 8:15:00EDT, Capsule, [facility] 3, Partial fill upon patient request if the prescription is for a schedule II opioid drug., 160, cm, 01/17/22 6:38... Start Date: 01/17/22 Status: Ordered Ecotrin 325 mg oral delayed release tablet 1 tablet = 325 mg, By Mouth, 2 times a day, # 60 tablet, 0 Refills, Maintenance, 01/17/22 8:15:00 EDT, EC Tablet, [facility] 3, Partial fill upon patient request if the prescription is for a schedule II opioid drug., 160, cm, 01/17/22 6:38... Start Date: 01/17/22 Stop Date: 02/16/22 Status: Ordered furosemide 20 mg oral tablet 20 mg, By Mouth, Daily, # 30 tablet, Refills 0, Tot. Refills 0, Maintenance, 09/03/17 12:21:15, Route to Pharmacy Electronically, [id number], [facility] 3 Start Date: 09/03/17 Stop Date: 10/03/17 Status: Ordered Lipitor 80 mg oral tablet = 80 mg, By Mouth, Daily at bedtime, # 30 tablet, 0 Refills, Maintenance, Tablet, Route to PharmacyElectronically, [id number], [facility] 3 Start Date: 09/03/17 Stop Date: 10/03/17 Status: Ordered LORazepam 0.5 mg oral tablet 0.5 tablet = 0.25 mg, By Mouth, 2 times a day, 0 Refills, Maintenance, 01/16/24 9:33:00 EDT, Tablet, Partial fill upon patient request if the prescription is for a schedule II opioid drug. Start Date: 01/16/24 Status: Ordered losartan 100 mg oral tablet 1 tablet = 100 mg, By Mouth, Daily, # 30 tablet, 0 Refills, Maintenance, 10/07/18 8:53:09 EST, Tablet Start Date: 10/07/18 Status: Ordered meloxicam 15 mg oral tablet 1 tablet = 15 mg, By Mouth, Daily, # 30 tablet, 0 Refills, Maintenance, 01/17/22 8:16:00 EDT, Tablet, [facility], Partial fill upon patient [...] Date: 01/17/22 Status: Ordered Problem List Condition Confirmation Course Effective Dates Status H ealth Status Informant Elevated AST (SGOT) Confirmed Active Atopic dermatitis Confirmed Active Basal cell carcinoma (BCC) Confirmed Active Nonischemic cardiomyopathy Confirmed Active CHF (congestive heart failure) Confirmed Active Esophageal dilatation Confirmed Active Eczema Confirmed Active Former smoker Confirmed Active History of one miscarriage Confirmed Active Hyperglycemia Confirmed Active Skin cancer Confirmed Active COPD, mild Confirmed Active Mitral regurgitation Confirmed Active Osteoarthritis of knee Confirmed Active Osteopenia Confirmed Active Pneumonia Confirmed Active Confirmed Active Esophageal stricture Confirmed Active Social History Social History Type Response Smoking Status Former smoker, quit more than 30 days ago entered on: 10/19/18 Sex Patient Care team information Care Team Personnel Name: Ajith PAINTER, Leslie Position: S Physician - Primary Care Member Role: PCP Address: Address: [address] [place] [address]- Care Team Related Persons Name: PEYTON MILLER Address: home [address] [place] [address]
--- OUTSIDE RECORDS SUMMARY | 2024-03-19 07:34 | XMS_ITS | Continuity of Care Document ---
Author Organization [facility] ter Address [address] [place] [address]- Care Team Providers Care Bellman Driver Name Role Phone Ajith PAINTER, Asma Primary Care Physician [phone] [place] [facility] [place] 12/11/21 - 02/09/[address] [address] Attending Physician: Levi Aguilar MD Referring Physician: Levi [...] capsule, 0 Refills, Maintenance, 01/17/22 8:15:00EDT, Capsule, [facility] 3, Partial fill upon patient request if the prescription is for a schedule II opioid drug., 160, cm, 01/17/22 6:38... Start Date: 01/17/22 Status: Ordered Ecotrin 325 mg oral delayed release tablet 1 tablet = 325 mg, By Mouth, 2 times a day, # 60 tablet, 0 Refills, Maintenance, 01/17/22 8:15:00 EDT, EC Tablet, [facility] 3, Partial fill upon patient request if the prescription is for a schedule II opioid drug., 160, cm, 01/17/22 6:38... Start Date: 01/17/22 Stop Date: 02/16/22 Status: Ordered furosemide 20 mg oral tablet 20 mg, By Mouth, Daily, # 30 tablet, Refills 0, Tot. Refills 0, Maintenance, 09/03/17 12:21:15, Route to Pharmacy Electronically, [id number], [facility] Start Date: 09/03/17 Stop Date: 10/03/17 Status: Ordered Lipitor 80 mg oral tablet = 80 mg, By Mouth, Daily at bedtime, # 30 tablet, 0 Refills, Maintenance, Tablet, Route to PharmacyElectronically, [id number], [facility] 3 Start Date: 09/03/17 Stop Date: 10/03/17 Status: Ordered losartan 100 mg oral tablet 1 tablet = 100 mg, By Mouth, Daily, # 30 tablet, 0 Refills, Maintenance, 10/07/18 8:53:09 EST, Tablet Start Date: 10/07/18 Status: Ordered meloxicam 15 mg oral tablet 1 tablet = 15 mg, By Mouth, Daily, # 30 tablet, 0 Refills, Maintenance, 01/17/22 8:16:00 EDT, Tablet, [facility] 3, Partial fill upon patient request if [...]
--- OUTSIDE RECORDS SUMMARY | 2024-03-19 07:34 | XMS_ITS | Continuity of Care Document ---
Author Organization [facility] ter Address [address] [place] [address]- Care Team Providers Care Video Editing Intern Name Role Phone [facility]ith PAINTER, [facility] [phone] [place] [facility] [place] - 02/15/[address] [address] Attending Physician: Not on Staff, Attending MD Admitting Physician: Not on Staff, Admitting MD Referring Physician: Not on Staff, Referring MD Allergies, Adverse Reactions, Alerts Substance Reaction [...] Refills, Maintenance, 01/17/22 8:15:00EDT, Capsule, [facility], Partial fill upon patient request if the prescription is for a schedule II opioid drug., 160jeremi, 01/17/22 6:38... Start Date: 01/17/22 Status: Ordered Ecotrin 325 mg oral delayed release tablet 1 tablet = 325 mg, By Mouth, 2 times a day, # 60 tablet, 0 Refills, Maintenance, 01/17/22 8:15:00 EDT, EC Tablet, [facility], Partial fill upon patient request if the prescription is for a schedule II opioid drug., 160jeremi, 01/17/22 6:38... Start Date: 01/17/22 Stop Date: 02/16/22 Status: Ordered furosemide 20 mg oral tablet 20 mg, By Mouth, Daily, # 30 tablet, Refills 0, Tot. Refills 0, Maintenance, 09/03/17 12:21:15, Route to Pharmacy Electronically, [id number], [facility] Start Date: 09/03/17 Stop Date: 10/03/17 Status: Ordered Lipitor 80 mg oral tablet = 80 mg, By Mouth, Daily at bedtime, # 30 tablet, 0 Refills, Maintenance, Tablet, Route to PharmacyElectronically, [id number], [facility] 3 Start Date: 09/03/17 Stop Date: 10/03/17 Status: Ordered losartan 100 mg oral tablet 1 tablet = 100 mg, By Mouth, Daily, # 30 tablet, 0 Refills, Maintenance, 10/07/18 8:53:09 EST, Tablet Start Date: 10/07/18 Status: Ordered meloxicam 15 mg oral tablet 1 tablet = 15 mg, By Mouth, Daily, # 30 tablet, 0 Refills, Maintenance, 01/17/22 8:16:00 EDT, Tablet, [facility], Partial fill upon patient request if [...]
--- OUTSIDE RECORDS SUMMARY | 2024-03-19 07:34 | XMS_ITS | Continuity of Care Document ---
Author Organization [facility] Address [address] [place] [address]- Care Team Providers Care Metal Tester Name Role Phone Ajith PAINTER, Asma Primary Care Physician [phone] Encounter [facility] [place] Date(s): 12/11/21 - 01/27/[address] [address] Attending Physician: Amy Somers MD Admitting Physician: Amy Somers MD Referring Physician: Levi Aguilar MD Allergies, [...] capsule, 0 Refills, Maintenance, 01/17/22 8:15:00EDT, Capsule, [facility], Partial fill upon patient request if the prescription is for a schedule II opioid drug., 160, cm, 01/17/22 6:38... Start Date: 01/17/22 Status: Ordered Ecotrin 325 mg oral delayed release tablet 1 tablet = 325 mg, By Mouth, 2 times a day, # 60 tablet, 0 Refills, Maintenance, 01/17/22 8:15:00 EDT, EC Tablet, [facility], Partial fill upon patient request if the prescription is for a schedule II opioid drug., 160, cm, 01/17/22 6:38... Start Date: 01/17/22 Stop Date: 02/16/22 Status: Ordered furosemide 20 mg oral tablet 20 mg, By Mouth, Daily, # 30 tablet, Refills 0, Tot. Refills 0, Maintenance, 09/03/17 12:21:15, Route to Pharmacy Electronically, [id number], [facility] 3 Start Date: 09/03/17 Stop Date: 10/03/17 Status: Ordered Lipitor 80 mg oral tablet = 80 mg, By Mouth, Daily at bedtime, # 30 tablet, 0 Refills, Maintenance, Tablet, Route to PharmacyElectronically, [id number], [facility] 3 Start Date: 09/03/17 Stop Date: 10/03/17 Status: Ordered losartan 100 mg oral tablet 1 tablet = 100 mg, By Mouth, Daily, # 30 tablet, 0 Refills, Maintenance, 10/07/18 8:53:09 EST, Tablet Start Date: 10/07/18 Status: Ordered meloxicam 15 mg oral tablet 1 tablet = 15 mg, By Mouth, Daily, # 30 tablet, 0 Refills, Maintenance, 01/17/22 8:16:00 EDT, Tablet, [facility] 3, Partial fill upon patient request [...]
--- OUTSIDE RECORDS SUMMARY | 2024-03-19 07:34 | XMS_ITS | Continuity of Care Document ---
Author Organization [facility] Address [address] [place] [address]- Care Team Providers Care Milk Sampler Name Role Phone Ajith [facility]INTER, [facility] [phone] [place] [facility] [place] - 01/27/22 [facility] [address] [place], [place] [address] Attending Physician: Cecilia Calderon Admitting Physician: AdmtrCecilia Referring Physician: Admtr, Cecilia Allergies, Adverse Reactions, Alerts Substance Reaction Severity [...] capsule, 0 Refills, Maintenance, 01/17/22 8:15:00EDT, Capsule, [facility], Partial fill upon patient request if the prescription is for a schedule II opioid drug., 160, cm, 01/17/22 6:38... Start Date: 01/17/22 Status: Ordered Ecotrin 325 mg oral delayed release tablet 1 tablet = 325 mg, By Mouth, 2 times a day, # 60 tablet, 0 Refills, Maintenance, 01/17/22 8:15:00 EDT, EC Tablet, [facility], Partial fill upon patient request if the prescription is for a schedule II opioid drug., 160, cm, 01/17/22 6:38... Start Date: 01/17/22 Stop Date: 02/16/22 Status: Ordered furosemide 20 mg oral tablet 20 mg, By Mouth, Daily, # 30 tablet, Refills 0, Tot. Refills 0, Maintenance, 09/03/17 12:21:15, Route to Pharmacy Electronically, [id number], [facility] Start Date: 09/03/17 Stop Date: 10/03/17 Status: Ordered Lipitor 80 mg oral tablet = 80 mg, By Mouth, Daily at bedtime, # 30 tablet, 0 Refills, Maintenance, Tablet, Route to PharmacyElectronically, [id number], [facility] Start Date: 09/03/17 Stop Date: 10/03/17 Status: Ordered losartan 100 mg oral tablet 1 tablet = 100 mg, By Mouth, Daily, # 30 tablet, 0 Refills, Maintenance, 10/07/18 8:53:09 EST, Tablet Start Date: 10/07/18 Status: Ordered meloxicam 15 mg oral tablet 1 tablet = 15 mg, By Mouth, Daily, # 30 tablet, 0 Refills, Maintenance, 01/17/22 8:16:00 EDT, Tablet, [facility], Partial fill upon patient request [...]
--- OUTSIDE RECORDS SUMMARY | 2024-03-19 07:34 | XMS_ITS | Continuity of Care Document ---
Author Organization [facility] Luke mcphersons [facility] Address [address] [place] [address], [address] [place] [address]- Care Team Providers Care Financial Compliance Examiner Name Role Phone Ajith PAINTER, Asma Primary Care Physician [place] [facility] [place](s): 09/24/19 - 10/04/19 [facility] [address] [facility] [facility], [address]th [place] [address]- Attending Physician: Cecilia Calderon Admitting Physician: Cecilia Calderon Referring Physician: AdmtrCecilia Allergies, Adverse Reactions, Alerts Substance Reaction Severity [...] 16:31:44, Tablet Start Date: 09/01/17 Status: Ordered Colace sodium 100 mg oral capsule 100 mg, 1, capsule, By Mouth, 2 times a day, PRN, # 50 capsule, Refills 0, Tot. Refills 0, Maintenance, for constipation, 08/09/19 17:57:35 EDT, Route to Pharmacy Electronically, [id number], [id number] Start Date: 08/09/19 Stop Date: 08/19/19 Status: Ordered Coreg 25 mg oral tablet 25 mg, 1, tablet, By Mouth, 2 times a day, # 180 tablet, Refills 0, Maintenance, 07/26/19 8:58:10 EDT Start Date: 07/26/19 Status: Ordered furosemide 20 mg oral tablet 20 mg, By Mouth, Daily, # 30 tablet, Refills 0, Tot. Refills 0, Maintenance, 09/03/17 12:21:15, Route to Pharmacy Electronically, [id number], [facility] 3 Start Date: 09/03/17 Stop Date: 10/03/17 Status: Ordered Lipitor 80 mg oral tablet = 80 mg, By Mouth, Daily at bedtime, # 30 tablet, 0 Refills, Maintenance, Tablet, Route to PharmacyElectronically, [id number], [facility] 3 Start Date: 09/03/17 Stop Date: 10/03/17 [...] EST, Tablet Start Date: 10/07/18 Status: Ordered Problem List Condition Effective Dates [...]
== END 2024-03-19 12:20 | disposition home or self-care (01) ==
PROVIDERS: PCP Internal Medicine; Visit Provider Internal Medicine
DX: G56.03 Carpal tunnel syndrome, bilateral upper limbs (principal)
CPT/HCPCS: 99442

== ENCOUNTER 2024-04-13 14:17 | Outpatient (AMB) | payer MEDICARE, SELFPAY ==
[2024-04-13 14:19] VITALS: BP 102/64; PULSE 80; O2SAT 97; BMI 23.9
--- NOTE | 2024-04-13 14:19 | A.OFFPC_ITS ---
Vital Signs 04/13/24 14:19 Height 5 ft 3 in Weight 135 lb BMI 23.9 BP 102/64 Blood Pressure Location Rt brachial Position Sitting Pulse 80 Pulse Source Pulse Oximeter Pulse Oximetry (%) 97 Intake Visit Reasons: follow up Allergies shellfish derived [SHELLFISH DERIVED] Allergy (Intermediate, Verified 04/13/24 14:19) THROAT CLOSING Sulfa (Sulfonamide Antibiotics) [SULFA (SULFONAMIDE ANTIBIOTICS)] Allergy (Mild, Verified 04/13/24 14:19) FLU LIKE SYMPTOMS Medication List - Last Reconciled 04/13/24 by Leslie Canseco MD alendronate (Fosamax) 70 mg PO QWEEK 90 days amlodipine 5 mg PO DAILY aspirin 81 mg PO DAILY atorvastatin 80 mg PO DAILY carvedilol 25 mg PO BID furosemide 20 mg PO DAILY lorazepam 0.5 mg PO DAILY PRN 90 days losartan 100 mg PO DAILY meloxicam 15 mg PO DAILY 90 days omeprazole magnesium 40 mg (2 x 20 mg) PO DAILY 90 days Tobacco use date assessed: 04/13/24 Fall risk assessment: No Falls in past year Last assessed Fall Risk: 04/13/24 Dental Screening Dental Screen Date: 04/13/24 Did you have a dental visit in the last 12 months?: Yes Did you have a dental problem in the last 6 months where you did not have access to dental care?: No Was dental information given to patient?: Patient has dentist HPI follow up HPI Details Patient is 73 year came today for regular follow-up appointment Patient is waiting orthopedic appointment Dr. Galarza for carpal surgery bilateral hands She says that she has busy during the summer and can not afford to have surgery as yet. Recommend to wear bilateral wrist splint while working in the garden. She is also due for cardiology visit she has not seen Dr. Green in 2 years Patient says that she was waiting for appointment from cardiology office but never received any call She heard herself wheeze recently so started taking furosemide she also felt her abdominal girth was increased a bit However there is no swelling of ankles. Patient says that when she was diagnosed with congestive heart failure it started with wheezing at that time as well She has not had any labs since September, she will be having labs done today Anxiety is stable patient is taking lorazepam at night as needed to sleep as a sleep aid and for anxiety. Medications sent 90 tablets GERD is stable, patient is on pantoprazole 40 mg Blood pressure is stable as well patient is on losartan 100 mg and amlodipine 5 mg Patient is on atorvastatin 80 mg through Cardiology as a preventive medication for coronary artery disease Last echogram showed 1. Normal LV ejection fraction 55-60% with impaired relaxation filling pattern and elevated filling pressures 2. Mildly dilated left atrium 3. Mild aortic stenosis and regurgitatio n 4. Mild mitral regurgitation 5. Normal RV systolic pressure 6. No pericardial effusion She will return in June for follow-up [facility] Medical History CAD (coronary artery disease) HTN (hypertension) Heart failure with reduced ejection fraction Congestive heart failure CHD (congenital heart disease) Eczema Surgical History Status post creation of urethral sling by suprapubic approach Basal cell carcinoma Shoulder arthritis H/O cardiac catheterization Social History Housing: House Alcohol intake: current Alcohol intake frequency: holidays/special occasions only Alcohol type: hard liquor Patient Tobacco Use Status: Former Tobacco user e-Cigarette/Vaping Use: Never Used service: No Current occupational status: retired Cognitive needs: No Hearing needs: No Vision needs: Yes (contacts) Questionnaire Thrive Questionnaire Date Thrive assessed: 03/19/24 AUDIT C Alcohol Use Questionnaire (AUDIT-C) 1. How often do you have a drink containing alcohol?: Monthly or less 2. How many drinks containing alcohol do you have on a typical day when you are drinking?: 1 or 2 3. How often do you have six or more drinks on one occasion?: Never Total Score: 1 Score Reviewed/Action Taken: Yes DANELLE-7 AMB Questionnaire DANELLE-7 Date DANELLE - 7 assessed: 03/19/24 Source: Developed by Drs. Flo Hunter, Ruby Krishna, Joaquín White and colleagues, with an educational miguelangel from [employer]. Review of Systems Const Denies chills and Denies fever(s) ENT Denies epistaxis and Denies nasal discharge Card Denies chest pain Resp Denies chest congestion, Denies cough and Denies hemoptysis GI Denies diarrhea and Denies nausea Skin/Breast Denies rash Neuro Reports no additional complaints Psych Reports no additional complaints Endo Reports no additional complaints Physical exam (Primary Care) Vital Signs: Last Vital Signs Pulse 80 04/13/24 14:19 BP 102/64 04/13/24 14:19 Pulse Ox 97 04/13/24 14:19 BMI result Body Mass Index 23.9 Tobacco/Smoking Status: Tobacco use Status Tobacco use date assessed 04/13/24 04/13/24 14:20 Patient Tobacco Use Status Former Tobacco user 04/13/24 14:20 e-Cigarette/Vaping Use Never Used 04/13/24 14:20 Thrive Assessment: Date of Thrive Assessment Date Thrive assessed 03/19/24 04/13/24 14:20 Const General: cooperative, comfortable and no acute distress Orientation/consciousness: patient oriented x3 HENMT Head: Yes normocephalic Eyes General: appearance normal, both eyes and all related structures Neck Neck: Yes supple Resp Other: Mild wheezing bilateral with deep breath Effort & Inspection: normal respiratory effort, no cough and no stridor Cardio Rhythm: regular rhythm Heart sounds: S1 normal heart sound present and S2 normal heart sound present Skin General skin exam: turgor normal Neuro General: patient oriented x3, tone normal and moves all extremities Extrem Right lower extremity: no edema Left lower extremity: no edema Assessment and Plan Assessment & Plan (1) Wheezing: Code(s): R06.2 - Wheezing (2) HTN (hypertension): Code(s): I10 - Essential (primary) hypertension Qualifiers: Hypertension type: primary hypertension Qualified Code(s): I10 - Essential (primary) hypertension (3) Bilateral primary osteoarthritis of knee: Code(s): M17.0 - Bilateral primary osteoarthritis of knee (4) CAD (coronary artery disease): Code(s): I25.10 - Atherosclerotic heart disease of [place] coronary artery without angina pectoris Qualifiers: Associated angina: without angina Coronary Disease-Associated Artery/Lesion type: [place] artery [place] vs. transplanted heart: [place] heart Qualified Code(s): I25.10 - Atherosclerotic heart disease of [place] coronary artery without angina pectoris (5) Chronic GERD: Code(s): K21.9 - Gastro-esophageal reflux disease without esophagitis (6) Anxiety: Code(s): F41.9 - Anxiety disorder, unspecified (7) Difficulty sleeping: Code(s): G47.9 - Sleep disorder, unspecified (8) Kyphosis: Code(s): M40.209 - Unspecified kyphosis, site unspecified Qualifiers: Kyphosis type: postural Spinal region: thoracic Qualified Code(s): M40.04 - Postural kyphosis, thoracic region Plan Patient is 73 year came today for regular follow-up appointment Patient is waiting orthopedic appointment Dr. Galarza for carpal surgery bilateral hands She says that she has busy during the summer and can not afford to have surgery as yet. Recommend to wear bilateral wrist splint while working in the garden. She is also due for cardiology visit she has not seen Dr. Green in 2 years Patient says that she was waiting for appointment from cardiology office but never received any call She heard herself wheeze recently so started taking furosemide she also felt her abdominal girth was increased a bit However there is no swelling of ankles. Patient says that when she was diagnosed with congestive heart failure it started with wheezing at that time as well She has not had any labs since September, she will be having labs done today Anxiety is stable patient is taking lorazepam at night as needed to sleep as a sleep aid and for anxiety. Medications sent 90 tablets GERD is stable, patient is on pantoprazole 40 mg Blood pressure is stable as well patient is on losartan 100 mg and amlodipine 5 mg Patient is on atorvastatin 80 mg through Cardiology as a preventive medication for coronary artery disease Last echogram showed 1. Normal LV ejection fraction 55-60% with impaired relaxation filling pattern and elevated filling pressures 2. Mildly dilated left atrium 3. Mild aortic stenosis and regurgitation 4. Mild mitral regurgitation 5. Normal RV systolic pressure 6. No pericardial effusion She will return in June for follow-up Orders: Orders Complete Blood Count Auto Diff Today F41.9 - Anxiety disorder, unspecified, G47.9 - Sleep disorder, unspecified, I10 - Essential (primary) hypertension, I25.10 - Atherosclerotic heart disease of [place] coronary artery without angina pectoris, K21.9 - Gastro-esophageal reflux disease without esophagitis, M17.0 - Bilateral primary osteoarthritis of knee, M40.209 - Unspecified kyphosis, site unspecified Comprehensive Met. Panel Today F41.9 - Anxiety disorder, unspecified, G47.9 - Sleep disorder, unspecified, I10 - Essential (primary) hypertension, I25.10 - Atherosclerotic heart disease of [place] coronary artery without angina pectoris, K21.9 - Gastro-esophageal reflux disease without esophagitis, M17.0 - Bilateral primary osteoarthritis of knee, M40.209 - Unspecified kyphosis, site unspecified LDL Cholesterol Direct Today F41.9 - Anxiety disorder, unspecified, G47.9 - Sleep disorder, unspecified, I10 - Essential (primary) hypertension, I25.10 - Atherosclerotic heart disease of [place] coronary artery without angina pectoris, K21.9 - Gastro-esophageal reflux disease without esophagitis, M17.0 - Bilateral primary osteoarthritis of knee, M40.209 - Unspecified kyphosis, site unspecified Vitamin D 25-OH (D2 and D3) Today F41.9 - Anxiety disorder, unspecified, G47.9 - Sleep disorder, unspecified, I10 - Essential (primary) hypertension, I25.10 - Atherosclerotic heart disease of [place] coronary artery without angina pectoris, K21.9 - Gastro-esophageal reflux disease without esophagitis, M17.0 - Bilateral primary osteoarthritis of knee, M40.209 - Unspecified kyphosis, site unspecified Medications: Refilled lorazepam Medication will only be filled at office visit next time 0.5 mg PO DAILY 90 days PRN 90 tabs 0RF sleep G47.9 - Sleep disorder, unspecified Coding Level of Care Code Est Pt Level 4 (60655) Complex EM visit Add On G2211 Diagnoses Wheezing R06.2 Primary hypertension I10 Hypertension type: primary hypertension Bilateral primary osteoarthritis of knee M17.0 Coronary artery disease involving [place] coronary artery of [place] heart without angina pectoris I25.10 Associated angina: without angina Coronary Disease-Associated Artery/Lesion type: [place] artery [place] vs. transplanted heart: [place] heart Chronic GERD K21.9 Anxiety F41.9 Difficulty sleeping G47.9 Postural kyphosis of thoracic region M40.04 Kyphosis type: postural Spinal region: thoracic
== END 2024-04-13 15:34 | disposition home or self-care (01) ==
PROVIDERS: PCP Internal Medicine; Visit Provider Internal Medicine
DX: R06.2 Wheezing (principal); I10 Essential (primary) hypertension; M17.0 Bilateral primary osteoarthritis of knee; I25.10 Atherosclerotic heart disease of native coronary artery without angina pectoris; K21.9 Gastro-esophageal reflux disease without esophagitis; F41.9 Anxiety disorder, unspecified; G47.9 Sleep disorder, unspecified; M40.04 Postural kyphosis, thoracic region
CPT/HCPCS: 99214; G2211

== ENCOUNTER 2024-04-13 14:41 | Outpatient (REF) | payer MEDICARE, SELFPAY ==
[2024-04-13 16:31] LABS: Basophils Percent Auto 0.7 % (0-2); Eosinophils Absolute Auto 0.4 X10*3/uL (0.0-0.4); Eosinophils Percent Auto 6.4 % (0-4); Hemoglobin 11.9 g/dl (12.0-16.0); Imm Gran Abs Auto 0.02 X10*3/uL (0.00-0.03); Imm Gran Pct Auto 0.3 % (0.0-0.4); Lymphocytes Percent Auto 16.9 % (20-40); Mean Corpuscular HGB Conc 33.1 g/dl (31.0-35.0); Mean Corpuscular Hemoglobin 30.3 pg (27.0-33.0); Mean Corpuscular Volume 91.6 fL (80.0-98.0); Mean Platelet Volume 9.8 fL (9.4-12.3); Monocytes Absolute Auto 0.6 X10*3/uL (0.1-1.2); Monocytes Percent Auto 10.5 % (2-11); Neutrophils Percent Auto 65.2 % (45-73); Platelet Count 262 X10*3/uL (160-400); Red Blood Count 3.93 X10*6/uL (4.20-5.50); Red Cell Distribution Width 13.5 % (11.0-16.0); White Blood Count 6.1 X10*3/uL (4.8-10.8)
[2024-04-13 16:32] LABS: MANUAL DIFF FLAG NO
[2024-04-13 16:49] LABS: Alanine Aminotransferase 19 U/L (0-31); Albumin Level 4.1 g/dL (3.5-5.0); Alkaline Phosphatase 77 U/L (39-117); Anion Gap 12 (12-20); Aspartate Amino Transferase 60 U/L (5-31); Bilirubin Total 0.4 mg/dL (0.0-1.0); Blood Urea Nitrogen 29 mg/dL (9-16); Calcium 8.8 mg/dL (8.4-10.2); Carbon Dioxide 25 mmol/L (22-29); Chloride 106 mmol/L (96-108); Estimated Glomerular Filt Rate > 60; Glucose Random 138 mg/dL (60-115); Potassium 4.1 mmol/L (3.3-5.1); Sodium 139 mmol/L (135-145); Total Protein 7.1 g/dL (6.5-8.0)
[2024-04-15 08:57] LABS: LDL Cholesterol Direct 56 mg/dL (<100)
[2024-04-17 14:08] LABS: Vitamin D 25-OH, D2 <4 ng/mL; Vitamin D 25-OH, D3 19 ng/mL; Vitamin D 25-OH, Total 19 ng/mL (30-100)
== END 2024-04-13 14:42 | disposition home or self-care (01) ==
LOC: HO.HMGCLDS 14:41
PROVIDERS: PCP Internal Medicine; Visit Provider Internal Medicine
DX: M17.0 Bilateral primary osteoarthritis of knee (principal); I10 Essential (primary) hypertension; I25.10 Atherosclerotic heart disease of native coronary artery without angina pectoris; K21.9 Gastro-esophageal reflux disease without esophagitis; F41.9 Anxiety disorder, unspecified; G47.9 Sleep disorder, unspecified; M40.209 Unspecified kyphosis, site unspecified
CPT/HCPCS: 36415; 80053; 82306; 83721; 85025

== ENCOUNTER 2024-05-19 09:11 | Outpatient (AMB) | payer MEDICARE, SELFPAY ==
[2024-05-19 09:13] VITALS: BP 118/76; PULSE 68; BMI 23.8
--- NOTE | 2024-05-19 09:13 | MHC.OFFVIS ---
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 Allergies shellfish derived [SHELLFISH DERIVED] Allergy (Intermediate, Verified 04/13/24 14:19) THROAT CLOSING Sulfa (Sulfonamide Antibiotics) [SULFA (SULFONAMIDE ANTIBIOTICS)] Allergy (Mild, Verified 04/13/24 14:19) FLU LIKE SYMPTOMS Medication List - Last Reconciled 05/19/24 by Mario Green MD alendronate (Fosamax) 70 mg PO QWEEK 90 days amlodipine 5 mg PO DAILY aspirin 81 mg PO DAILY atorvastatin 80 mg PO DAILY carvedilol 25 mg PO BID furosemide 20 mg PO DAILY lorazepam 0.5 mg PO DAILY PRN 90 days losartan 100 mg PO DAILY meloxicam 15 mg PO DAILY 90 days omeprazole magnesium 40 mg (2 x 20 mg) PO DAILY 90 days HPI Comments Details: Haleigh comes for follow-up after a long gap. She denies any cardiac symptoms. Denies any chest pain, shortness of breath, orthopnea, PND. She is scheduled to undergo carpal tunnel surgery in near future. This is considered low risk surgery. She has been taking all her medications. She denies any heart failure symptoms. Denies any prolonged palpitation, lightheadedness, syncope. [facility] Medical History CAD (coronary artery disease) HTN (hypertension) Heart failure with reduced ejection fraction Congestive heart failure CHD (congenital heart disease) Eczema Surgical History Status post creation of urethral sling by suprapubic approach Basal cell carcinoma Shoulder arthritis H/O cardiac catheterization Social History Housing: House Alcohol intake: current Alcohol intake frequency: holidays/special occasions only Alcohol type: hard liquor Patient Tobacco Use Status: Former Tobacco user e-Cigarette/Vaping Use: Never Used service: No Current occupational status: retired Cognitive needs: No Hearing needs: No Vision needs: Yes (contacts) Review of Systems Const Denies chills, Denies fatigue, Denies fever(s), Denies frequent falls, Denies weakness, Denies weight gain and Denies weight loss ENT Denies dizziness Card Denies chest pain, Denies leg edema, Denies lightheadedness, Denies palpitations, Denies dyspnea, Denies dyspnea on exertion, Denies orthopnea and Denies other (loss of consciousness) Resp Denies cough, Denies dyspnea and Denies dyspnea on exertion GI Denies hematochezia and Denies change in stool character Musc Denies abnormal gait, Denies muscle weakness, Denies numbness, Denies radiating pain into limb and Denies tingling Neuro Denies abnormal gait, Denies dizziness, Denies frequent falls, Denies numbness, Denies tingling and Denies weakness Endo Denies fatigue and Denies palpitations Physical Exam Vital Signs: Last Vital Signs Pulse 68 05/19/24 09:13 BP 118/76 05/19/24 09:13 BMI result Body Mass Index 23.8 Const General: cooperative, comfortable, no acute distress, alert, awake and well groomed Nutritional Appearance: average body habitus Orientation/consciousness: patient oriented x3 Limitations: no limitations Neck Neck: Yes trachea midline, Yes supple and Yes no JVD Resp Effort & Inspection: normal respiratory effort Auscultation: clear to auscultation bilaterally Cardio Jugular venous distension: no JVD Palpation: normal PMI Rate: regular rate Rhythm: regular rhythm Heart sounds: S1 normal heart sound present and S2 normal heart sound present GI Auscultation: normal bowel sounds Skin General skin exam: no rashes or lesions noted Neuro General: patient oriented x3 and no focal motor deficits Extrem General: Yes no clubbing, cyanosis or edema Psych Appearance: grossly normal Office Procedures EKG Details: EKG shows normal sinus rhythm with normal EKG [id number], Complete Assessment & Plan Assessment & Plan (1) Preoperative cardiovascular examination: Code(s): Z01.810 - Encounter for preprocedural cardiovascular examination Plan: Preoperative cardiovascular risk stratification for carpal tunnel syndrome which is considered low risk surgery. Patient currently not having any cardiac symptoms. EKGs normal. At this point time she is optimized to undergo surgery with low risk for perioperative cardiovascular morbidity mortality. Aspirin can be withheld for few days prior to the surgery as per surgeon's discretion and resumed as soon as possible. (2) CAD (coronary artery disease): Code(s): I25.10 - Atherosclerotic heart disease of [place] coronary artery without angina pectoris Category: Medical Qualifiers: Coronary Disease-Associated Artery/Lesion type: [place] artery [place] vs. transplanted heart: [place] heart Associated angina: without angina Qualified Code(s): I25.10 - Atherosclerotic heart disease of [place] coronary artery without angina pectoris Plan: Prior CAD nonobstructive without any new current symptoms. Continue low-dose aspirin therapy. Continue high-intensity statin therapy with target goal LDL less than 70 mg/dL. Blood pressure is currently well optimized. Continue current medications. Advised to maintain activity level as tolerated. (3) Heart failure with reduced ejection fraction: Comment: Improved LVEF with neurohormonal modulation Code(s): I50.20 - Unspecified systolic (congestive) heart failure Category: Medical Plan: Prior history of heart failure with reduced ejection fraction with normalized LV ejection fraction medical therapy currently on low-dose Lasix therapy, clinically euvolemic and well compensated. Continue current therapy. Continue neurohormonal modulation. Avoidance of cardiotoxic agent was discussed. Follow up in the clinic in 1 year's time after an echocardiogram. Thank you for allowing me to partake in her care Coding Level of Care Code Est Pt Level 4 (66297) Diagnoses Preoperative cardiovascular examination Z01.810 Coronary artery disease involving [place] coronary artery of [place] heart without angina pectoris I25.10 Coronary Disease-Associated Artery/Lesion type: [place] artery [place] vs. transplanted heart: [place] heart Associated angina: without angina Heart failure with reduced ejection fraction I50.20 CPT Codes EKG - CPT: 53074-[id number], Complete ([id number])
== END 2024-05-19 09:46 | disposition home or self-care (01) ==
PROVIDERS: PCP Internal Medicine; Visit Provider Internal Medicine Cardiovascular Disease
DX: I25.10 Atherosclerotic heart disease of native coronary artery without angina pectoris (principal); I50.20 Unspecified systolic (congestive) heart failure; Z01.810 Encounter for preprocedural cardiovascular examination
CPT/HCPCS: 93010; 99214

== ENCOUNTER → 2024-05-19 09:11 | Outpatient (BNVA) | payer MEDICARE, SELFPAY | PROVIDERS: PCP Internal Medicine; Visit Provider Internal Medicine Cardiovascular Disease | DX: Z01.810 Encounter for preprocedural cardiovascular examination (principal); I25.10 Atherosclerotic heart disease of native coronary artery without angina pectoris; I50.20 Unspecified systolic (congestive) heart failure | CPT/HCPCS: 93005; 99212 ==

== ENCOUNTER 2024-07-07 09:53 | Outpatient (AMB) | payer MEDICARE, SELFPAY ==
[2024-07-07 10:11] VITALS: BP 126/74; PULSE 74; O2SAT 96; BMI 24.2
--- NOTE | 2024-07-07 10:11 | A.OFFPC_ITS ---
Vital Signs 07/07/24 10:11 Height 5 ft 3 in Weight 136 lb 6 oz BMI 24.2 BP 126/74 Blood Pressure Location Lt brachial Position Sitting Pulse 74 Pulse Source Pulse Oximeter Pulse Oximetry (%) 96 Oxygen Delivery Method Room Air Intake Visit Reasons: Med Refill / F/U Allergies shellfish derived [SHELLFISH DERIVED] Allergy (Intermediate, Verified 07/07/24 10:13) THROAT CLOSING Sulfa (Sulfonamide Antibiotics) [SULFA (SULFONAMIDE ANTIBIOTICS)] Allergy (Mild, Verified 07/07/24 10:13) FLU LIKE SYMPTOMS Medication List - Last Reconciled 07/07/24 by Leslie Canseco MD alendronate (Fosamax) 70 mg PO QWEEK 90 days amlodipine 5 mg PO DAILY aspirin 81 mg PO DAILY atorvastatin 80 mg PO DAILY carvedilol 25 mg PO BID furosemide 20 mg PO DAILY lorazepam 0.5 mg PO DAILY PRN 90 days losartan 100 mg PO DAILY meloxicam 15 mg PO DAILY 90 days omeprazole magnesium 40 mg (2 x 20 mg) PO DAILY 90 days Tobacco use date assessed: 07/07/24 Fall risk assessment: No Falls in past year Last assessed Fall Risk: 07/07/24 Dental Screening Dental Screen Date: 07/07/24 Did you have a dental visit in the last 12 months?: Yes Did you have a dental problem in the last 6 months where you did not have access to dental care?: No Was dental information given to patient?: Patient has dentist HPI Med Refill / F/U HPI Details Patient is a 74-year-old female came in today for her regular follow-up appointment Bone density done recently showed osteopenia with a score of -2.0 Patient was started on Fosamax she has been taking that for the past 3 months and tolerating medication We will continue for 5 years Patient was notified to stop medication if she goes for dental procedures a week before Lab order placed to be done next month Last set of lab was March of this year Patient is currently taking lorazepam to sleep at night, however she tells me that medication does not work and she is up at 01:00 She would like to try trazodone, her has started taking that and is doing well, patient says that she will try her 's trazodone and if she likes it she will get back to me and we will stop the lorazepam She has developed fungus both big toe, and want to see a exhibition specialist, referral placed Carpal tunnel syndrome, management through [facility] Patient has been postponing the surgery, as she can not afford not to use her hands for few days Recommend to wear bilateral wrist splint while working in the garden. Cardiomyopathy/Congestive heart failure, management through Dr. Green [facility] through Cardiology office GERD is stable, patient is on pantoprazole 40 mg Blood pressure is stable as well patient is on losartan 100 mg and amlodipine 5 mg If patient has started taking trazodone rather than lorazepam She will come in 3 times a year for follow-up otherwise continue with the same scheduled of Q three-month [facility] Medical History CAD (coronary artery disease) HTN (hypertension) Heart failure with reduced ejection fraction Congestive heart failure CHD (congenital heart disease) Eczema Surgical History Status post creation of urethral sling by suprapubic approach Basal cell carcinoma Shoulder arthritis H/O cardiac catheterization Social History Housing: House Alcohol intake: current Alcohol intake frequency: holidays/special occasions only Alcohol type: hard liquor Patient Tobacco Use Status: Former Tobacco user e-Cigarette/Vaping Use: Never Used service: No Current occupational status: retired Cognitive needs: No Hearing needs: No Vision needs: Yes (contacts) Questionnaire PHQ-9 Over the last 2 weeks, how often have you been bothered by any of the following problems? 1. Little interest or pleasure in doing things: not at all 2. Feeling down, depressed, or hopeless: not at all 3. Trouble falling or staying asleep, or sleeping too much: more than half the days 4. Feeling tired or having little energy: not at all 5. Poor appetite or overeating: not at all 6. Feeling bad about yourself - or that you are a failure or have let yourself or your family down: not at all 7. Trouble concentrating on things, such as reading the newspaper or watching television: not at all 8. Moving or speaking so slowly that other people could have noticed. Or the opposite - being so fidgety or restless that you have been moving around a lot more than usual: not at all 9. Thoughts that you would be better off or of hurting yourself in some way: not at all Total score: 2 Depression Screening Interpretation: Negative Depression Screening Done: Yes 11762 - PHQ-9 Billing: Yes Source: Developed by Drs. Flo Hunter, Ruby Krishna, Joaquín White and colleagues, with an educational miguelangel from [employer] Thrive Questionnaire Date Thrive assessed: 07/07/24 I am a: Patient What is your living situation today?: I have a steady place to live Within the past 12 months, did the food you bought not last and you didn't have the money to get more?: Never true Within the past 12 months, did you worry whether your food would run out before you got money to buy more?: Never true Do you have trouble paying for medicines?: No Do you have trouble getting transportation to medical appointments?: No Do you have trouble paying your heating and electricity bill?: No Do you have trouble taking care of your child, family member or friend?: No Do you have trouble with day-to-day activities such as bathing, preparing meals, shopping, managing finances, etc.?: No Are you interested in more education?: No Please select the resources that you would like help with: None Currently or been in a relationship where the following occur: No concerns reported THRIVE Score: 0 AUDIT C Alcohol Use Questionnaire (AUDIT-C) 1. How often do you have a drink containing alcohol?: 2-4 times a month 2. How many drinks containing alcohol do you have on a typical day when you are drinking?: 1 or 2 3. How often do you have six or more drinks on one occasion?: Never Total Score: 2 Score Reviewed/Action Taken: Yes DANELLE-7 AMB Questionnaire DANELLE-7 Date DANELLE - 7 assessed: 07/07/24 Feeling nervous, anxious, or on edge: 0 = Not at all Not being able to stop or control worryin = Not at all Worrying too much about different things: 2 = More than half the days Trouble relaxin = More than half the days Being so restless that it is hard to sit still: 0 = Not at all Becoming easily annoyed or irritable: 0 = Not at all Feeling afraid as if something awful might happen: 0 = Not at all Total DANELLE-7 score (0-4 normal; 5-9 mild; 10-14 moderate; 15-21 severe): 4 Source: Developed by Drs. Flo Hunter, Ruby Krishna, Joaquín White and colleagues, with an educational miguelangel from [employer] DANELLE-7 Assessment Billing DANELLE-7 Assessment Tool: DANELLE-7 Assessment 11701 Review of Systems Const Denies chills and Denies fever(s) ENT Denies epistaxis and Denies nasal discharge Card Denies chest pain Resp Denies chest congestion, Denies cough and Denies hemoptysis GI Denies diarrhea and Denies nausea Skin/Breast Denies rash Neuro Reports no additional complaints Psych Reports no additional complaints Endo Reports no additional complaints Physical exam (Primary Care) Vital Signs: Last Vital Signs Pulse 74 07/07/24 10:11 BP 126/74 07/07/24 10:11 Pulse Ox 96 07/07/24 10:11 Oxygen Delivery Method Room Air 07/07/24 10:11 BMI result Body Mass Index 24.2 Tobacco/Smoking Status: Tobacco use Status Tobacco use date assessed 07/07/24 07/07/24 10:14 Patient Tobacco Use Status Former Tobacco user 07/07/24 10:14 e-Cigarette/Vaping Use Never Used 07/07/24 10:14 PHQ-9: PHQ-9 Score PHQ-9: Total score 2 07/07/24 10:32 Depression Screening Interpretation: Negative Thrive Assessment: Date of Thrive Assessment Date Thrive assessed 07/07/24 07/07/24 10:14 Currently or been in a relationship where the following occur: No concerns reported Const General: cooperative, comfortable and no acute distress Orientation/consciousness: patient oriented x3 HENMT Head: Yes normocephalic Eyes General: appearance normal, both eyes and all related structures Neck Neck: Yes supple Resp Effort & Inspection: normal respiratory effort, no cough and no stridor Cardio Rhythm: regular rhythm Heart sounds: S1 normal heart sound present and S2 normal heart sound present Skin General skin exam: turgor normal Neuro General: patient oriented x3, tone normal and moves all extremities Extrem Right lower extremity: no edema Left lower extremity: no edema Assessment and Plan Assessment & Plan (1) Difficulty sleeping: Code(s): G47.9 - Sleep disorder, unspecified (2) Osteopenia: Code(s): M85.80 - Other specified disorders of bone density and structure, unspecified site Qualifiers: Osteopenia location: unspecified Qualified Code(s): M85.80 - Other specified disorders of bone density and structure, unspecified site (3) Difficulty sleeping: Code(s): G47.9 - Sleep disorder, unspecified (4) Anxiety, generalized: Code(s): F41.1 - Generalized anxiety disorder (5) HTN (hypertension): Code(s): I10 - Essential (primary) hypertension Qualifiers: Hypertension type: primary hypertension Qualified Code(s): I10 - Essential (primary) hypertension (6) Heart failure with reduced ejection fraction: Comment: Improved LVEF with neurohormonal modulation Code(s): I50.20 - Unspecified systolic (congestive) heart failure (7) CAD (coronary artery disease): Code(s): I25.10 - Atherosclerotic heart disease of [place] coronary artery without angina pectoris Qualifiers: Associated angina: without angina Coronary Disease-Associated Artery/Lesion type: [place] artery Elim Ira vs. transplanted heart: [place] heart Qualified Code(s): I25.10 - Atherosclerotic heart disease of [place] coronary artery without angina pectoris (8) Chronic GERD: Code(s): K21.9 - Gastro-esophageal reflux disease without esophagitis (9) Kyphosis: Code(s): M40.209 - Unspecified kyphosis, site unspecified Qualifiers: Kyphosis type: postural Spinal region: thoracic Qualified Code(s): M40.04 - Postural kyphosis, thoracic region (10) Bilateral primary osteoarthritis of knee: Code(s): M17.0 - Bilateral primary osteoarthritis of knee Plan Patient is a 74-year-old female came in today for her regular follow-up appointment Bone density done recently showed osteopenia with a score of -2.0 Patient was started on Fosamax she has been taking that for the past 3 months and tolerating medication We will continue for 5 years Patient was notified to stop medication if she goes for dental procedures a week before Lab order placed to be done next month Last set of lab was March of this year Patient is currently taking lorazepam to sleep at night, however she tells me that medication does not work and she is up at 01:00 She would like to try trazodone, her has started taking that and is doing well, patient says that she will try her 's trazodone and if she likes it she will get back to me and we will stop the lorazepam She has developed fungus both big toe, and want to see a exhibition specialist, referral placed Carpal tunnel syndrome, management through Dr. Galarza Patient has been postponing the surgery, as she can not afford not to use her hands for few days Recommend to wear bilateral wrist splint while working in the garden. Cardiomyopathy/Congestive heart failure, management through Dr. Green [facility] through Cardiology office GERD is stable, patient is on pantoprazole 40 mg Blood pressure is stable as well patient is on losartan 100 mg and amlodipine 5 mg If patient has started taking trazodone rather than lorazepam She will come in 3 times a year for follow-up otherwise continue with the same scheduled of Q three-month Orders: Orders Comprehensive Met. Panel Today F41.9 - Anxiety disorder, unspecified, G47.9 - Sleep disorder, unspecified, I10 - Essential (primary) hypertension, I25.10 - Atherosclerotic heart disease of [place] coronary artery without angina pectoris, I50.20 - Unspecified systolic (congestive) heart failure, K21.9 - Gastro- esophageal reflux disease without esophagitis, M40.04 - Postural kyphosis, thoracic region, M85.80 - Other specified disorders of bone density and structure, unspecified site Complete Blood Count Auto Diff Today F41.9 - Anxiety disorder, unspecified, G47.9 - Sleep disorder, unspecified, I10 - Essential (primary) hypertension, I25.10 - Atherosclerotic heart disease of [place] coronary artery without angina pectoris, I50.20 - Unspecified systolic (congestive) heart failure, K21.9 - Gastro-esophageal reflux disease without esophagitis, M40.04 - Postural kyphosis, thoracic region, M85.80 - Other specified disorders of bone density and structure, unspecified site Medications: New cholecalciferol (vitamin D3) 25 mcg PO DAILY 90 days 90 caps 1RF Coding Level of Care Code Est Pt Level 4 (74149) Complex EM visit Add On G2211 Diagnoses Difficulty sleeping G47.9 Osteopenia, unspecified location M85.80 Osteopenia location: unspecified Anxiety, generalized F41.1 Primary hypertension I10 Hypertension type: primary hypertension Heart failure with reduced ejection fraction I50.20 Coronary artery disease involving [place] coronary artery of [place] heart without angina pectoris I25.10 Associated angina: without angina Coronary Disease-Associated Artery/Lesion type: [place] artery Elim [place] vs. transplanted heart: [place] heart Chronic GERD K21.9 Postural kyphosis of thoracic region M40.04 Kyphosis type: postural Spinal region: thoracic Bilateral primary osteoarthritis of knee M17.0 Additional Codes DANELLE-7 Assessment Billing - DANELLE-7 Assessment Tool: DANELLE-7 Assessment [id number] ([id number])
== END 2024-07-07 10:33 | disposition home or self-care (01) ==
PROVIDERS: PCP Internal Medicine; Visit Provider Internal Medicine
DX: G47.9 Sleep disorder, unspecified (principal); I50.20 Unspecified systolic (congestive) heart failure; M85.80 Other specified disorders of bone density and structure, unspecified site; F41.1 Generalized anxiety disorder; I10 Essential (primary) hypertension; I25.10 Atherosclerotic heart disease of native coronary artery without angina pectoris; K21.9 Gastro-esophageal reflux disease without esophagitis; M40.04 Postural kyphosis, thoracic region; M17.0 Bilateral primary osteoarthritis of knee

== ENCOUNTER → 2024-07-07 09:53 | Outpatient (BNVA) | payer MEDICARE, SELFPAY | PROVIDERS: PCP Internal Medicine; Visit Provider Internal Medicine | DX: G47.9 Sleep disorder, unspecified (principal); M85.80 Other specified disorders of bone density and structure, unspecified site; F41.1 Generalized anxiety disorder; I11.0 Hypertensive heart disease with heart failure; I50.20 Unspecified systolic (congestive) heart failure; I25.10 Atherosclerotic heart disease of native coronary artery without angina pectoris | CPT/HCPCS: 96127; 99212 ==

== ENCOUNTER 2024-08-30 07:30 | Outpatient (REF) | payer MEDICARE, SELFPAY | END 2024-08-30 07:31 | disposition home or self-care (01) | LOC: HO.MAMMO 07:30 | PROVIDERS: PCP Internal Medicine; Visit Provider Internal Medicine | DX: Z13.89 Encounter for screening for other disorder (principal) ==

== ENCOUNTER 2024-11-03 08:04 | Outpatient (REF) | payer MEDICARE, SELFPAY | END 2024-11-03 08:05 | disposition home or self-care (01) | LOC: HO.MAMMO 08:04 | PROVIDERS: PCP Internal Medicine; Visit Provider Internal Medicine | DX: Z12.31 Encounter for screening mammogram for malignant neoplasm of breast (principal) | CPT/HCPCS: 77063; 77067 ==

== ENCOUNTER 2025-01-11 13:38 | Outpatient (AMB) | payer MEDICARE, SELFPAY ==
[2025-01-11 13:46] VITALS: BP 136/68; PULSE 77; O2SAT 96; BMI 24.6
--- NOTE | 2025-01-11 13:46 | A.OFFPC_ITS ---
Vital Signs 01/11/25 13:46 Height 5 ft 3 in Weight 139 lb 2 oz BMI 24.6 BP 136/68 Blood Pressure Location Rt brachial Position Sitting Pulse 77 Pulse Source Pulse Oximeter Pulse Oximetry (%) 96 Oxygen Delivery Method Room Air Intake Visit Reasons: Physical Exam Allergies shellfish derived [SHELLFISH DERIVED] Allergy (Intermediate, Verified 01/11/25 13:49) THROAT CLOSING Sulfa (Sulfonamide Antibiotics) [SULFA (SULFONAMIDE ANTIBIOTICS)] Allergy (Mild, Verified 01/11/25 13:49) FLU LIKE SYMPTOMS Medication List - Last Reconciled 01/11/25 by Leslie Canseco MD alendronate (Fosamax) 70 mg PO QWEEK 90 days amlodipine 5 mg PO DAILY aspirin 81 mg PO DAILY atorvastatin 80 mg PO DAILY carvedilol 25 mg PO BID cholecalciferol (vitamin D3) 25 mcg PO DAILY 90 days furosemide 20 mg PO DAILY lorazepam 0.5 mg PO DAILY PRN 90 days losartan 100 mg PO DAILY meloxicam 15 mg PO DAILY 90 days omeprazole magnesium 40 mg (2 x 20 mg) PO DAILY 90 days Tobacco use date assessed: 01/11/25 Fall risk assessment: No Falls in past year Last assessed Fall Risk: 01/11/25 Dental Screening Dental Screen Date: 01/11/25 Did you have a dental visit in the last 12 months?: Yes Did you have a dental problem in the last 6 months where you did not have access to dental care?: No Was dental information given to patient?: Patient has dentist HPI Physical Exam HPI Details Physical exam - The patient is a 74-year-old female pr esenting with routine well check and medication management. She has a history of osteopenia identified in a bone density scan last year and is undergoing treatment with alendronate. - She has familial arthritis affecting h er hands and has experienced carpal tunnel syndrome, which necessitated cessation of frequent gym visits due to numbness while using equipment. - The patient maintains activity by freq uently walking her dog, although she notes frailty and fatigue particularly in using stairs at the end of the day. - requesting trazodone script, patient h as been using her 's trazodone which is 100 mg, I have sent 50 mg for her she may use that as needed to sleep at night . - The patient also deals with a prolapse d bladder, a consequence that worsened due to COVID-19 induced cough, and has apprehensions about the potential cognitive impact of surgery. Need a referral to see a specialist - patient is established with Cardiology all her medications are through their office except Alendronate Vitamin-D Meloxicam that she takes for osteoarthritis multiple joints Omeprazole 40 mg and trazodone Health Maintenance - Bone density scan last year indicating osteopenia; follow-up scan advised next year - Routine mammogram is up to date - Regular physical activity maintained t hrough walking - No colonoscopy by patient preference - Use of alendronate for bone health Diagnostic results - Prior bone density scan showing osteop enia - Recent labs results not discussed Review of Systems - General: No fever no chills - Neurological: No headaches no dizzin ess - Ear nose throat: No sore throat no hearing difficulty no ear pain - Cardiovascular: No syncope, no chest pain, no palpitations - Gastrointestinal: No nausea vomiting or diarrhea - Endocrine: No polyuria polydipsia no heat intolerance - Genitourinary: Prolapsed bladder causing urgency when need to urinate - Skin: No new complaints Physical Exam General: Cooperative, healthy appearing, comfortable, no acute distress Orientation: Patient oriented x3 Head: Normal to inspection Ears: Within normal limit visually Nose: Normal external nose present Face and sinus: Normal facial exam Eyes: Appearance normal, extraocular movement intact pupils reactive Neck: Normal visual inspection and supple Respiratory: Normal respiratory effort and able to speak in complete sentences. Clear to auscultation, no stridor Cardiovascular: S1 and S2 GI: Normal to inspection. Soft to palpation and nontender Skin: Turgor normal, no acute findings Neuro: Patient oriented x3, motor sensory intact, balance intact, tandem pass Extremities: Normal to inspection, severe arthritis small joints sounds bilateral PFSH Medical History CAD (coronary artery disease) HTN (hypertension) Heart failure with reduced ejection fraction Congestive heart failure CHD (congenital heart disease) Eczema Surgical History Status post creation of urethral sling by suprapubic approach Basal cell carcinoma Shoulder arthritis H/O cardiac catheterization Social History Housing: House Alcohol intake: current Alcohol intake frequency: holidays/special occasions only Alcohol type: hard liquor Patient Tobacco Use Status: Former Tobacco user e-Cigarette/Vaping Use: Never Used service: No Current occupational status: retired Cognitive needs: No Hearing needs: No Vision needs: Yes (contacts) Questionnaire PHQ-9 Over the last 2 weeks, how often have you been bothered by any of the following problems? 1. Little interest or pleasure in doing things: not at all 2. Feeling down, depressed, or hopeless: not at all 3. Trouble falling or staying asleep, or sleeping too much: several days 4. Feeling tired or having little energy: several days 5. Poor appetite or overeating: not at all 6. Feeling bad about yourself - or that you are a failure or have let yourself or your family down: not at all 7. Trouble concentrating on things, such as reading the newspaper or watching television: not at all 8. Moving or speaking so slowly that other people could have noticed. Or the opposite - being so fidgety or restless that you have been moving around a lot more than usual: not at all 9. Thoughts that you would be better off or of hurting yourself in some way: not at all Total score: 2 Depression Screening Interpretation: Negative Depression Screening Done: Yes 65039 - PHQ-9 Billing: Yes Source: Developed by Drs. Flo Hunter, Ruby Krishna, Joaquín White and colleagues, with an educational miguelangel from [employer]. Thrive Questionnaire Date Thrive assessed: 01/11/25 I am a: Patient What is your living situation today?: I have a steady place to live Within the past 12 months, did the food you bought not last and you didn't have the money to get more?: Never true Within the past 12 months, did you worry whether your food would run out before you got money to buy more?: Never true Do you have trouble paying for medicines?: No Do you have trouble getting transportation to medical appointments?: No Do you have trouble paying your heating and electricity bill?: No Do you have trouble taking care of your child, family member or friend?: No Do you have trouble with day-to-day activities such as bathing, preparing meals, shopping, managing finances, etc.?: No Are you currently unemployed and looking for a job?: No Are you interested in more education?: No Please select the resources that you would like help with: None Currently or been in a relationship where the following occur: No concerns reported THRIVE Score: 0 AUDIT C Alcohol Use Questionnaire (AUDIT-C) 1. How often do you have a drink containing alcohol?: 2-4 times a month 2. How many drinks containing alcohol do you have on a typical day when you are drinking?: 1 or 2 3. How often do you have six or more drinks on one occasion?: Never Total Score: 2 Score Reviewed/Action Taken: Yes DANELLE-7 AMB Questionnaire DANELLE-7 Date DANELLE - 7 assessed: 01/11/25 Feeling nervous, anxious, or on edge: 0 = Not at all Not being able to stop or control worryin = Not at all Worrying too much about different things: 0 = Not at all Trouble relaxin = Several days Being so restless that it is hard to sit still: 0 = Not at all Becoming easily annoyed or irritable: 0 = Not at all Feeling afraid as if something awful might happen: 0 = Not at all Total DANELLE-7 score (0-4 normal; 5-9 mild; 10-14 moderate; 15-21 severe): 1 Source: Developed by Drs. Flo Hunter, Ruyb Krishna, Joaquín White and colleagues, with an educational miguelangel from [employer]. DANELLE-7 Assessment Billing DANELLE-7 Assessment Tool: DANELLE-7 Assessment 61631 Physical exam (Primary Care) Vital Signs: Last Vital Signs Pulse 77 01/11/25 13:46 BP 136/68 01/11/25 13:46 Pulse Ox 96 01/11/25 13:46 Oxygen Delivery Method Room Air 01/11/25 13:46 BMI result Body Mass Index 24.6 Tobacco/Smoking Status: Tobacco use Status Tobacco use date assessed 01/11/25 01/11/25 13:49 Patient Tobacco Use Status Former Tobacco user 01/11/25 13:47 e-Cigarette/Vaping Use Never Used 01/11/25 13:47 PHQ-9: PHQ-9 Score PHQ-9: Total score 2 01/11/25 14:13 Depression Screening Interpretation: Negative Thrive Assessment: Date of Thrive Assessment Date Thrive assessed 01/11/25 01/11/25 13:49 Currently or been in a relationship where the following occur: No concerns reported Coding Level of Care Code Est Pt Level 3 (23954) Est Pt Prev Care >65y(73032) Diagnoses Encounter for general adult medical examination with abnormal findings Z00.01 Prolapse of female bladder, acquired N81.10 Difficulty sleeping G47.9 Primary osteoarthritis of hands, bilateral M19.041; M19.042 Colonoscopy refused Z53.20 Heart failure with reduced ejection fraction I50.20 Primary hypertension I10 Hypertension type: primary hypertension Coronary artery disease involving ruby coronary artery of ruby heart without angina pectoris I25.10 Coronary Disease-Associated Artery/Lesion type: ruby artery [place] vs. transplanted heart: ruby heart Associated angina: without angina Chronic GERD K21.9 Osteopenia, unspecified location M85.80 Osteopenia location: unspecified Additional Codes DANELLE-7 Assessment Billing - DANELLE-7 Assessment Tool: DANELLE-7 Assessment 06221 ([id number]) PHQ-9 - 91737 - PHQ-9 Billing: Yes ([id number]) Assessment & Plan Assessment & Plan (1) Encounter for general adult medical examination with abnormal findings: Code(s): Z00.01 - Encounter for general adult medical examination with abnormal findings Category: Medical (2) Prolapse of female bladder, acquired: Code(s): N81.10 - Cystocele, unspecified Category: Medical (3) Difficulty sleeping: Code(s): G47.9 - Sleep disorder, unspecified Category: Medical (4) Primary osteoarthritis of hands, bilateral: Code(s): M19.041 - Primary osteoarthritis, right hand; M19.042 - Primary osteoarthritis, left hand Category: Medical (5) Colonoscopy refused: Code(s): Z53.20 - Procedure and treatment not carried out because of patient's decision for unspecified reasons Category: Medical (6) Heart failure with reduced ejection fraction: Comment: Improved LVEF with neurohormonal modulation Code(s): I50.20 - Unspecified systolic (congestive) heart failure Category: Medical (7) HTN (hypertension): Code(s): I10 - Essential (primary) hypertension Category: Medical Qualifiers: Hypertension type: primary hypertension Qualified Code(s): I10 - Essential (primary) hypertension (8) CAD (coronary artery disease): Code(s): I25.10 - Atherosclerotic heart disease of ruby coronary artery without angina pectoris Category: Medical Qualifiers: Coronary Disease-Associated Artery/Lesion type: ruby artery [place] vs. transplanted heart: ruby heart Associated angina: without angina Qualified Code(s): I25.10 - Atherosclerotic heart disease of ruby coronary artery without angina pectoris (9) Chronic GERD: Code(s): K21.9 - Gastro-esophageal reflux disease without esophagitis Category: Medical (10) Osteopenia: Code(s): M85.80 - Other specified disorders of bone density and structure, unspecified site Category: Medical Qualifiers: Osteopenia location: unspecified Qualified Code(s): M85.80 - Other specified disorders of bone density and structure, unspecified site Plan Physical exam - The patient is a 74-year-old female presenting with routine well check and medication management. She has a history of osteopenia identified in a bone density scan last year and is undergoing treatment with alendronate. 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 - The patient maintains activity by frequently walking her dog, although she notes frailty and fatigue particularly in using stairs at the end of the day. - requesting trazodone script, patient has been using her 's trazodone which is 100 mg, I have sent 50 mg for her she may use that as needed to sleep a t night . - The patient also deals with a prolapsed bladder, a consequence that worsened due to COVID-19 induced cough, and has apprehensions about the potential cognitive impact of surgery. Need a referral to see a specialist - patient is established with Cardiology all her medications are through their office except Alendronate Vitamin-D Meloxicam that she takes for osteoarthritis multiple joints Omeprazole 40 mg and trazodone Health Maintenance - Bone density scan last year indicating osteopenia; follow-up scan advised next year - Routine mammogram is up to date - Regular physical activity maintained through walking - No colonoscopy by patient preference - Use of alendronate for bone health Diagnostic results - Prior bone density scan showing osteopenia - Recent labs results not discussed Follow-up 6 months Orders: Referrals Urogynecology Referral N81.10 - Cystocele, unspecified Medications: New trazodone 25 mg (1/2 x 50 mg) PO BEDTIME PRN 90 tabs 0RF sleep Refilled meloxicam 15 mg PO DAILY 90 tabs 0RF 90 days cholecalciferol (vitamin D3) 25 mcg PO DAILY 90 caps 1RF 90 days Discontinued lorazepam Medication will only be filled at office visit next time Discontinued Reason: Doctor's Order 0.5 mg PO DAILY 90 days PRN 90 tabs 0RF sleep G47.9 - Sleep disorder, unspecified
== END 2025-01-11 14:13 | disposition home or self-care (01) ==
LOC: HO.HMCC 13:39
PROVIDERS: PCP Internal Medicine; Visit Provider Internal Medicine
DX: Z00.01 Encounter for general adult medical examination with abnormal findings (principal); I50.20 Unspecified systolic (congestive) heart failure; N81.10 Cystocele, unspecified; G47.9 Sleep disorder, unspecified; M19.041 Primary osteoarthritis, right hand; M19.042 Primary osteoarthritis, left hand; Z53.20 Procedure and treatment not carried out because of patient's decision for unspecified reasons; I10 Essential (primary) hypertension; I25.10 Atherosclerotic heart disease of native coronary artery without angina pectoris; K21.9 Gastro-esophageal reflux disease without esophagitis; M85.80 Other specified disorders of bone density and structure, unspecified site

== ENCOUNTER → 2025-01-11 13:38 | Outpatient (BNVA) | payer MEDICARE, SELFPAY | PROVIDERS: PCP Internal Medicine; Visit Provider Internal Medicine | DX: Z00.01 Encounter for general adult medical examination with abnormal findings (principal); N81.10 Cystocele, unspecified; G47.9 Sleep disorder, unspecified; M19.041 Primary osteoarthritis, right hand; M19.042 Primary osteoarthritis, left hand; I11.0 Hypertensive heart disease with heart failure; I50.20 Unspecified systolic (congestive) heart failure; I25.10 Atherosclerotic heart disease of native coronary artery without angina pectoris; K21.9 Gastro-esophageal reflux disease without esophagitis; M85.80 Other specified disorders of bone density and structure, unspecified site | CPT/HCPCS: 96127; 99212; 99397 ==

== ENCOUNTER 2025-01-21 09:11 | Outpatient (REF) | payer MEDICARE, SELFPAY ==
--- OUTSIDE RECORDS SUMMARY | 2025-01-21 09:55 | XMS_ITS ---
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 Name Role Phone Ajith PAINTER, Asma Primary Care Provider Allison Gutiérrez Unavailable [phone] Allergies Allergen (clinical drug ingredient) Drug/Non Drug Allergy documented on EMR Reaction Allergy Type Onset Date Status Pollen Pollen Unknown Allergy Active Shellfish (FN) Shellfish-derived Products trouble breathing Drug Allergy Active Substance with sulfonamide structure and antibacterial mechanism of action (substance) Sulfa Antibiotics flu symptoms Drug Allergy Active REASON FOR VISIT Fungal Nails, Varicose Veins Medications Medication SIG (Take, Route, Frequency, Duration) Notes Start Date End Date Status Furosemide 20 MG Orally Act celia Atorvastatin Calcium 80 MG Orally Active Carvedilol 25 MG Orally BID Ac tive Losartan Potassium 100 MG Orally Active Aspirin 81 MG Orally Active amLODIPine Besylate 5 MG 1 tablet Orally Once a day Active Meloxicam 15 MG Orally Acti ve Alendronate Sodium 70 MG 1 tablet Orally once a week Active Omeprazole 20 MG 2 capsules Orally On ce a day Active Social History Tobacco Use: Social History Observation Description Date Details (start date - stop date) Never Smoker NA - NA Tobacco use other than smoking: Question Answer Notes Are you an other tobacco user? No Tobacco Control (Standard) Question Answer Notes Tobacco use: Nonsmoker Additional Findings: Tobacco non-user Current no nsmoker AUDIT-C (Standard) Question Answer Notes Did you have a drink contain ing alcohol in the past year? Yes How often did you have six o r more drinks on one occasion in the past year? Declined to specify (0 point) How many drinks did you have on a typical day when you were drinking in the past year? Declined to specify (0 point) How often did you have a dri nk containing alcohol in the past year? Monthly or less (1 point) Points 1 Interpretation Negative Problems Problem Type SNOMED Code ICD Code Onset Dates Problem Status W/U Status Risk Notes Problem 86628137 Symptomatic varicose veins of both lower extremities (I83.893) Active confirmed Vital Signs Height 63 in 11/02/2024 Weight 135 lbs 11/02/2024 BMI 23.91 kg/m2 11/02/2024 Blood pressure systolic 126 mm Hg 11/02/19 25 Blood pressure diastolic 70 mm Hg 025 Encounters Encounter Location Date Provider Diagnosis [facility] [place] [address] [place] [address] 11/02/2024 Allison Jeff Pain in right toe(s) M79.674 ; Onychomycosis B35.1 ; Pain in left toe(s) M79.675 and Symptomatic varicose veins of both lower extremities I83.893 Assessments Encounter Date Diagnosis (ICD Code) Assessment Notes Treatment Notes Treatment Clinical Notes Section Notes 11/02/2024 Pain in right toe(s) (ICD-10 - M79.674) 11/02/2024 Onychomycosis (ICD-10 - B35.1) 11/02/2024 Pain in left toe(s) (ICD-10 - M79.675) 11/02/2024 Symptomatic varicose veins of both lower extremities (ICD-10 - I83.893) Plan Of Treatment Next Appt Details Follow Up: 6 Months, Reason: Provider Name:Allison milan, 04/29/2025 09:00:00 AM, [address] [place], [address], Progress Notes * Haleigh MILLER LDOB: (74 yo F)Acc No.[id number]:11/02/2024 Progress Notes Patient:?Haleigh MILLER Provider:?Allison Jeff DPM :1950???Age:74 Y???Sex:Female D ate:11/02/2024 Address:[address] [place] [address] [place], [id number] Pcp:Leslie Canseco MD Subjective: * Chief Complaints: * ???Fungal NailsVaricose Vein s * HPI: ???Painful Nails:?Nature:?aching, tender, discolored, thick.?Location:?Great toe, Both feet.?Course:?worse.?Aggravated by:?shoegear causing difficulty standing/walking.?Treatments:?none.?Swelling:?Nature:?Varicose veins?.?Location:?Both feet/leg.?Duration:?several years-worse in last 6 months.?Course:?worse.?Treatment:?Vein laser surgery in 2017.? * ROS:?General/Constitutional:?Nausea?denies.?Vomiting?denies.?Hunger Thirst?denies.?Loss appetite?denies.?Chills?denies.?Fatigue?denies.?Fever?denies.?Night Sweats?denies.?Unexplained weight loss?denies.?Unexplained weight gain?denies.?HEENTM:?Dentures?denies.?Dizziness?denies.?Glasses/contacts?admits.?Retinopathy?de nies.?Blurred/double vision?denies.?TMJ?denies.?Discharge/drainage?denies.?Implants?denies.?Sore throat?denies.?Dental implants?denies.?Hard of hearing ?denies.?Difficulty chewing/swallowing/speaking?denies.?Nose bleeds?denies.?Sore mouth?denies.?Respiratory:?On Oxygen?denies.?Pneumonia/pleurisy?denies.?Bronchitis?denies.?Emphysema?denies.?C oughing?denies.?Cough blood?denies.?Shortness of breath?denies.?Wheezing?denies.?Cardiovascular:?Pacemaker?denies.?MVP?denies.?WPW?denies.?CHF?denies.?Heart attack?denies.?Septal defect?denies.?Rapid beat?denies.?Chest pain ?denies.?Atrial Fib.?denies.?Murmur/Palpitations?denies.?Gastrointestinal:?Hemorrhoids?denies.?Stomach/Abdominal pain?denies.?Dark blood stool?denies.?Irritable bowel ?denies.?Constipation?denies.?Diarrhea?denies.?Hematology:?Swelling?denies.?Clots?denies.?Varicose Veins?denies.?Bruising?denies.?Bleeding problem?denies.?Genitourinary:?Blood urine?denies.?Frequent/Painfu/urination/bladder control?denies.?Kidney stones?denies.?Infection (UTI)?denies.?Nephropathy?denies.?sex trans dis (STD)?denies.?Prostate?denies.?Musculoskeletal:?Hammertoes?denies.?Bunions?denies.?Back Pain?denies.?Muscle Cramps/ Resting?denies.?Muscle cramps / walking?denies.?Generalized aches and pains?denies.?Weakness?denies.?Integ.:?[place]?denies.?Scars?denies.?Corns/calluses?denies.?Ingrown nails?denies.?Painful nails?denies.?Open Sores?denies.?Rashes?denies.?Neurologic:?Difficulty sleeping?denies.?Brain disorder?denies.?Numbness?denies.?Balance trouble?denies.?Confusion?denies.?Fainting/blackouts?denies.?Tingling?denies.?Tr emors?denies.? * Medical History:? * Surgical History:?basal carc inoma 2009shoulder surgery 04/2011knee replacement arpal tunnel surgery 09/2024 * Hospitalization/Major Diagno stic Procedure:?Denies Past Hospitalization * Family History:?Mother: dece ased, diagnosed with Other malignant neoplasm of unspecified site, Family history of arthritis.?Father: , diagnosed with Unspecified heart disease.? * Social History:?Tobacco Use:?Tobacco use other than smoking?Are you an other tobacco user??No ?Tobacco Control (Standard)?Tobacco use:?Nonsmoker ?Additional Findings: Tobacco non-user?Current nonsmoker ???Drugs/Alcohol:?Drugs?Have you used drugs other than those for medical reasons in the past 12 months??No ???Miscellaneous:?Caffeine: yes, frequency:, 1-2 cups per day. ?Children: yes. ?Exercise: yes, walking, gym, 2-3 times per week. ?Marital status: . ?Occupation: retired. ???Drug/Alcohol:?AUDIT-C (Standard)?Did you have a drink containing alcohol in the past year??Yes ?How often did you have six or more drinks on one occasion in the past year??Declined to specify (0 point) ?How many drinks did you have on a typical day when you were drinking in the past year??Declined to specify (0 point) ?How often did you have a drink containing alcohol in the past year??Monthly or less (1 point) ?Points?1 ?Interpretation?Negative * Medications:?TakingAlendrona te Sodium 70 MG Tablet 1 tablet Orally once a week Omeprazole 20 MG Capsule Delayed Release 2 capsules Orally Once a day amLODIPine Besylate 5 MG Tablet 1 tablet Orally Once a day Meloxicam 15 MG Tablet Orally Aspirin 81 MG Tablet Delayed Release Orally Carvedilol 25 MG Tablet Orally BID Losartan Potassium 100 MG Tablet Orally Furosemide 20 MG Tablet Orally Atorvastatin Calcium 80 MG Tablet Orally Medication List reviewed and reconciled with the patientTaking Alendronate Sodium 70 MG Tablet 1 tablet Orally once a week Taking Omeprazole 20 MG Capsule Delayed Release 2 capsules Orally Once a day Taking amLODIPine Besylate 5 MG Tablet 1 tablet Orally Once a day Taking Meloxicam 15 MG Tablet Orally Taking Aspirin 81 MG Tablet Delayed Release Orally Taking Carvedilol 25 MG Tablet Orally BID Taking Losartan Potassium 100 MG Tablet Orally Taking Furosemide 20 MG Tablet Orally Taking Atorvastatin Calcium 80 MG Tablet Orally Medication List reviewed and reconciled with the patient * Allergies:?Sulfa Antibiotics : flu symptomsShellfish-derived Products: trouble breathingPollenyes[Allergies Verified] Objective: * Vitals:?Ht: 63, Wt:135, BMI: 23.91, Shoe size: 9, BP:126/70mm Hg, Wt-k.23 kg. * Examination: ???Nails: ?NAILS are:?Elongated, overgrown, dystrophic, lytic, greater than 3mm thick, discolored and friable with crumbly malodorous subungual debris, with pain on palpation, TA, T5.?Vascular: ?DP PULSES (B):?3/4, B/L.?PT PULSES (B):?3/4, B/L.?CAPILLARY FILL TIME:?immediate, all digits, B/L.?TROPHIC CONDITION-TEXTURE/ELASTICITY/TURGOR/HAIR GROWTH (B):?normal, B/L.?TEMPERTURE GRADIENT (C):?normal, warm to cool, proximal to distal, B/L, B/L.?TELANGECTASIA:?present, severe.?VARICOSITIES:?present, moderate, nonpainful, B/L.?RAJIV'S SIGN:?absent, B/L.?PALPABLE CORDS:?absent, B/L.?General Examination: ?GENERAL APPEARANCE:?Reveals a pleasant, alert, well nourished, well- developed, well hydrated individual, who demonstrates proper attention to hygiene/body habitus, and is in no acute distress, Pt serves as own historian for office visit today.?ORIENTED:?person, place, and time.?FOOT EXAM:?Lower Extremity Neurological Exam performed:?Yes ?Visual exam of foot performed:?Yes ?Date?11/02/2024?Neurological: ?SENSORY:?Neurological exam reveals intact sensorium, pain sensation normal, vibration sensation intact, pinprick sensation is normal in the lower extremities, Pt denies, anesthesia, burning, paresthesia, tingling, B/L.?Orthopedic: ?MUSCLE STRENGTH:?5/5 all groups in a symmetrical fashion, B/L.? Assessment: * Assessment: 1.?Pain in right toe(s) - M7 9.674???2.?Onychomycosis - B35.1 (Primary)???3.?Pain in left toe(s) - M79.675???4.?Symptomatic varicose veins of both lower extremities - I83.893??? Plan: * Treatment: * Procedure Codes:? * Preventive Medicine:? ??Counseling:?Discussion:?-04: Office or other outpatient visit for the evaluation and management of a new patient, which required a medically appropriate history and/or examination and MODERATE level of DECISION MAKING for: 1 OR MORE CHRONIC PROBLEM(S) THATS WORSENING, 2 STABLE CHRONIC PROBLEMS, A NEWLY DIAGNOSED PROBLEM WITH UNCERTAIN PROGNOSIS, AN ACUTE COMPLICATED INJURY WITH MULTIPLE TREATMENT OPTIONS, OR AN ACUTE PROBLEM WITH ACCOMPANYING SYSTEMIC SYMPTOMS, THAT POSE(S) A MODERATE RISK OF MORBIDITY. THIS CONDITION MAY ALSO INCLUDE RX DRUG MANAGEMENT, OR A DECISON FOR MINOR SURGERY. The visit on the day of the encounter encompassed interpreting the data and educating the patient as to the nature of their condition, treatment options available according to their individual PMH, meds, allergies, and overall health/living conditions, as well as any potential risks or complications that may occur from a failure to adhere to, and participate in, the recommended course of therapy. The discussion included a complete verbal, and/or written explanation of the examination results, any x-rays taken, the proposed diagnosis, and outline of the treatment plan. A schedule for future care needs was also explained. The patient verbalized an understanding of the instructions at this time and agreed to be an active participant in their treatment. If the patient should think of any questions or concerns after the visit, I have encouraged the patient to call the office.?Consult:?The patient was counseled on the diagnosis, treatment options, and the need for a, Vascular Consult, pt defers appt and took information for NEEV for varicose veins.?Fungal Nail Counseling:?The patient was counseled on the diagnosis, potential etiologies (including, but not limited to, environmental factors, genetic, immune deficiency), and the multiple treatment options for Onychomycosis. We discussed the risks and benefits of each option from performing no treatment, to ultraviolet light shoe treatment, to laser nail treatment, to applying topical antifungals, to taking oral antifungal medication, to surgical removal of the involved nail(s) with or without performing a matricectomy, or any combination thereof. We discussed the advantages and disadvantages of each of possible treatment and importance for adherence to all the recommended therapies for optimum success. This includes the necessity for weekly emery board self nail home debridements, and control the nail and skin environment as much as possible by only using a fresh, dry pair of shoes/socks each day, as well as keeping the skin as dry as possible through the use of sprays/powders if necessary. The patient was instructed to discard the emery board after use to prevent reinfection of the involved nail(s). We discussed the mycological and visual clinical effectiveness of topical vs oral antifungal treatments as well as each ones potential side effects and/or any patient- specific medication interactions. We discussed the reasons behind the important requirement of regular liver function testing with oral antifungal therapy for safety. Patient questions regarding use, dosage, successful outcomes, blood tests, and possible pharmaceutical interactions were reviewed and the patient verbalized that all answers were clearly understood, The patient presently prefers topical treatment.? ??Screening/Special Tests:?Fall Risk?Screening:?No falls in the past year ?FALLS: Screening for Future Fall Risk?Have you had any falls with injury in the past year??No * Follow Up:?6 Months * Images: * Sign off status: Completed true * Provider:?Allison Jeff DPM Date:? Generated for Arelis martinez/Jeanne/Fransisca on:?01/21/2025 09:55 AM EDT History and Physical Notes * HPI (History of Present Illness) Category Sub-Category Detail Notes Category Not es Painful Nails Aggravated by: shoegear causing difficulty standing/walking Course: worse Location: Great toe, Both feet Nature: aching, tender, disc olored, thick Treatments: none Swelling Nature: Varicose veins Location: Both feet/leg Duration: several years-worse in last 6 months Course: worse Treatment: Vein laser surgery i n 2017 Examination Category Sub-Category Detail Notes Category Not es Neurological SENSORY: Neurological exa m reveals intact sensorium, pain sensation normal, vibration sensation intact, pinprick sensation is normal in the lower extremities, Pt denies, anesthesia, burning, paresthesia, tingling, B/L Orthopedic MUSCLE STRENGTH: 5/5 all groups in a symmetrical fashion, B/L General Examination GENERAL APPEARANCE: Reveals a pleasant, alert, well nourished, well-developed, well hydrated individual, who demonstrates proper attention to hygiene/body habitus, and is in no acute distress, Pt serves as own historian for office visit today FOOT EXAM: Lower Extremity Neurological Exa m performed:: Yes Visual exam of foot performed:: Yes Date: 11/02/2024 ORIENTED: person, place, and t richard Vascular DP PULSES (B): 3/4, B/L PT PULSES (B): 3/4, B/L CAPILLARY FILL TIME: immediate, all digi ts, B/L TEMPERTURE GRADIENT (C): normal, warm to cool, proximal to distal, B/L, B/L TROPHIC CONDITION-TEXTURE/ELASTICITY/TURGOR/HAIR GROWTH (B): normal, B/L TELANGECTASIA: present, severe VARICOSITIES: present, moderate, n onpainful, B/L RAJIV'S SIGN: absent, B/L PALPABLE CORDS: absent, B/L Nails NAILS are: Elongated, overg rown, dystrophic, lytic, greater than 3mm thick, discolored and friable with crumbly malodorous subungual debris, with pain on palpation, TA, T5
--- OUTSIDE RECORDS SUMMARY | 2025-01-21 09:55 | XMS_ITS | Patient Health Record ---
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 Role Phone Ajith PAINTER, Asma Primary Care Provider Allison Gutiérrez Unavailable [phone] Allergies Allergen (clinical drug ingredient) Drug/Non Drug Allergy documented on EMR Reaction Allergy Type Onset Date Status Pollen Pollen Unknown Allergy Active Shellfish (FN) Shellfish-derived Products trouble breathing Drug Allergy Active Substance with sulfonamide structure and antibacterial mechanism of action (substance) Sulfa Antibiotics flu symptoms Drug Allergy Active Reason For Referral No Information Medications Medication SIG (Take, Route, Frequency, Duration) [...] Problem Status W/U Status Risk Notes Problem Localized, primary osteoarthritis of the ankle and/or foot (392508818) Primary osteoarthritis, right ankle and foot (M19.071) Active confirmed Problem 64212666 Symptomatic varicose veins of both lower extremities (I83.893) Active confirmed Vital Signs Blood pressure diastolic 70 mm Hg 11/02/2024 Height 63 in 11/02/2024 Blood pressure systolic 126 mm Hg 11/02/2024 Weight 135 lbs 11/02/2024 BMI 23.91 kg/m2 11/02/2024 Encounters Encounter Location Date Provider Diagnosis [facility] [address] [place] [address] 11/02/2024 Allison Jeff Pain in right toe(s) [...] extremities (ICD-10 - I83.893) Plan Of Treatment Pending Test Test Name Order Date X ray : Foot, left 3V 04/28/2019 X ray : Foot, left 3V 05/19/2019 X ray : Foot, left 3V 06/16/2019 X ray : Foot, left 3V 08/03/2019 Next Appt Details Provider Name:Allison milan, 04/29/2025 09:00:00 AM, [address] [place] [address], [id number], Insurance Providers Payer Name Payer Address Payer Phone Subscriber Number Group Number Insured Name Patient Relationship to Insured Coverage Start Date Coverage End Date [facility] 65 Medicare Preferred [address] [place] [address] [phone] [id number] Haleigh Miranda Self - patient is the insured Medical (General) History Medical History History ICD Code Arthritis Heart disease Measles Mumps Chicken pox CAD Back,Hip,and Knee pain Broken bones Joint implants/screws Bone implants/screws Surgical History Surgery Date(Month/Year) basal carcinoma 2008 shoulder surgery 04/2011 knee replacement 2021 carpal tunnel surgery 09/2024
[2025-01-21 10:06] LABS: MANUAL DIFF FLAG NO
[2025-01-21 10:18] LABS: Basophils Absolute Auto 0.1 X10*3/uL (0.0-0.2); Basophils Percent Auto 0.6 % (0-2); Eosinophils Absolute Auto 0.5 X10*3/uL (0.0-0.4); Eosinophils Percent Auto 6.4 % (0-4); Hematocrit 38.7 % (37.0-47.0); Hemoglobin 12.7 g/dl (12.0-16.0); Imm Gran Abs Auto 0.03 X10*3/uL (0.00-0.03); Imm Gran Pct Auto 0.4 % (0.0-0.4); Lymphocytes Absolute Auto 0.9 X10*3/uL (1.2-4.9); Mean Corpuscular HGB Conc 32.8 g/dl (31.0-35.0); Mean Corpuscular Hemoglobin 29.6 pg (27.0-33.0); Mean Corpuscular Volume 90.2 fL (80.0-98.0); Mean Platelet Volume 9.8 fL (9.4-12.3); Monocytes Absolute Auto 0.7 X10*3/uL (0.1-1.2); Monocytes Percent Auto 8.5 % (2-11); Neutrophils Absolute Auto 5.6 x10*3/uL (2.0-8.3); Neutrophils Percent Auto 72.1 % (45-73); Platelet Count 277 X10*3/uL (160-400); Red Blood Count 4.29 X10*6/uL (4.20-5.50); Red Cell Distribution Width 13.6 % (11.0-16.0); White Blood Count 7.8 X10*3/uL (4.8-10.8)
[2025-01-21 10:35] LABS: Alanine Aminotransferase 16 U/L (0-31); Albumin Level 4.1 g/dL (3.5-5.0); Alkaline Phosphatase 88 U/L (39-117); Anion Gap 11 (12-20); Aspartate Amino Transferase 67 U/L (5-31); Bilirubin Total 0.7 mg/dL (0.0-1.0); Blood Urea Nitrogen 15 mg/dL (9-16); Calcium 8.8 mg/dL (8.4-10.2); Carbon Dioxide 26 mmol/L (22-29); Chloride 108 mmol/L (96-108); Estimated Glomerular Filt Rate > 60; Glucose Random 114 mg/dL (60-115); Potassium 3.8 mmol/L (3.3-5.1); Sodium 141 mmol/L (135-145); Total Protein 7.1 g/dL (6.5-8.0)
[2025-01-27 13:27] LABS: Vitamin D 25-OH, D2 <4 ng/mL; Vitamin D 25-OH, D3 12 ng/mL; Vitamin D 25-OH, Total 12 ng/mL (30-100)
== END 2025-01-21 09:12 | disposition home or self-care (01) ==
LOC: HO.HMGCLDS 09:11
PROVIDERS: PCP Internal Medicine; Visit Provider Internal Medicine
DX: G47.9 Sleep disorder, unspecified (principal); I10 Essential (primary) hypertension; I50.20 Unspecified systolic (congestive) heart failure; I25.10 Atherosclerotic heart disease of native coronary artery without angina pectoris; K21.9 Gastro-esophageal reflux disease without esophagitis; F41.9 Anxiety disorder, unspecified; M40.04 Postural kyphosis, thoracic region; M85.80 Other specified disorders of bone density and structure, unspecified site; M17.0 Bilateral primary osteoarthritis of knee; M40.209 Unspecified kyphosis, site unspecified
CPT/HCPCS: 36415; 80053; 82306; 85025

== ENCOUNTER 2025-01-26 13:35 | Outpatient (AMB) | payer MEDICARE, SELFPAY ==
[2025-01-26 13:48] VITALS: BP 126/68; PULSE 76; O2SAT 97; BMI 23.8
--- NOTE | 2025-01-26 13:48 | A.OFFPC_ITS ---
Vital Signs 01/26/25 13:48 Height 5 ft 3 in Weight 134 lb 5 oz BMI 23.8 BP 126/68 Blood Pressure Location Lt brachial Position Sitting Pulse 76 Pulse Source Pulse Oximeter Pulse Oximetry (%) 97 Oxygen Delivery Method Room Air Intake Visit Reasons: her leg started to swell Allergies shellfish derived [SHELLFISH DERIVED] Allergy (Intermediate, Verified 01/26/25 13:57) THROAT CLOSING Sulfa (Sulfonamide Antibiotics) [SULFA (SULFONAMIDE ANTIBIOTICS)] Allergy (Mild, Verified 01/26/25 13:57) FLU LIKE SYMPTOMS Medication List - Last Reconciled 01/26/25 by Leslie Canseco MD alendronate (Fosamax) 70 mg PO QWEEK 90 days amlodipine 5 mg PO DAILY aspirin 81 mg PO DAILY atorvastatin 80 mg PO DAILY carvedilol 25 mg PO BID cholecalciferol (vitamin D3) 25 mcg PO DAILY 90 days furosemide 20 mg PO DAILY losartan 100 mg PO DAILY meloxicam 15 mg PO DAILY 90 days omeprazole magnesium 40 mg (2 x 20 mg) PO DAILY 90 days trazodone 25 mg (1/2 x 50 mg) PO BEDTIME PRN Tobacco use date assessed: 01/26/25 Fall risk assessment: No Falls in past year Last assessed Fall Risk: 01/26/25 Dental Screening Dental Screen Date: 01/26/25 Did you have a dental visit in the last 12 months?: Yes Did you have a dental problem in the last 6 months where you did not have access to dental care?: No Was dental information given to patient?: Patient has dentist HPI her leg started to swell HPI Details History - The patient is a 74-year-old female pr esenting with right knee pain following trauma received from an impact injury involving two dogs approximately two weeks ago. - She reports a delay in symptom onset, with significant pain developing two weeks post-incident, particularly affecting her mobility and ability to navigate stairs. - There is noted deep pain in the right leg lateral to knee with point tenderness, possibly associated with muscle and bone, along with swelling. - Concurrent discomfort is reported in h er left knee, which has previously undergone a knee replacement, though she describes longstanding sensation issues without significant recent changes. - She has utilized ibuprofen, which prov ides relief but was initially reluctant due to her existing medication regimen. No difficulty walking Problem List - Acute Injury to the Right knee - Post Knee Replacement Pain in Left Leg Patient Instructions - Use ibuprofen or Aleve as needed for p ain relief with meals to minimize stomach upset. - Book an appointment for physical thera py - Apply gentle massage with olive oil or similar to the affected area to promote circulation, especially when seated in the evening. - Monitor symptoms and seek follow-up ca re if pain persists or worsens despite therapy. Review of Systems - Neurological: No headaches no dizziness - Ear nose throat: No sore throat no hearing difficulty no ear pain - Cardiovascular: No syncope, no chest pain, no palpitations - Gastrointestinal: No nausea vomiting or diarrhea - Endocrine: No polyuria polydipsia no heat intolerance - Genitourinary: No dysuria , no blood in urine Physical Exam General: No acute distress HEENT: No acute findings Neck: Supple Respiratory system: Able to talk in full sentences, no audible wheeze Gastrointestinal: No pain Extremities: Right knee pain, pain located laterally at the insertion of lateral collateral ligament, with point tenderness, no pain over calf, Homans sign negative, neurovascular intact, knee with full range of motion without any swelling 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 awake oriented x3 motor sensory intact Skin: Normal turgor [facility] Medical History CAD (coronary artery disease) HTN (hypertension) Heart failure with reduced ejection fraction Congestive heart failure CHD (congenital heart disease) Eczema Surgical History Status post creation of urethral sling by suprapubic approach Basal cell carcinoma Shoulder arthritis H/O cardiac catheterization Social History Housing: House Alcohol intake: current Alcohol intake frequency: holidays/special occasions only Alcohol type: hard liquor Patient Tobacco Use Status: Former Tobacco user e-Cigarette/Vaping Use: Never Used service: No Current occupational status: retired Cognitive needs: No Hearing needs: No Vision needs: Yes (contacts) Questionnaire PHQ-9 Over the last 2 weeks, how often have you been bothered by any of the following problems? 67519 - PHQ-9 Billing: Patient declined-do not bill Source: Developed by Drs. Flo Hunter, Ruby Krishna, Joaquín White and colleagues, with an educational miguelangel from [employer]. Thrive Questionnaire Date Thrive assessed: 01/11/25 AUDIT C Alcohol Use Questionnaire (AUDIT-C) 1. How often do you have a drink containing alcohol?: 2-4 times a month 2. How many drinks containing alcohol do you have on a typical day when you are drinking?: 1 or 2 3. How often do you have six or more drinks on one occasion?: Never Total Score: 2 Score Reviewed/Action Taken: Yes DANELLE-7 AMB Questionnaire DANELLE-7 Date DANELLE - 7 assessed: 01/11/25 Source: Developed by Drs. Flo Hunter, Ruby Krishna, Joaquín White and colleagues, with an educational miguelangel from [employer]. Physical exam (Primary Care) Vital Signs: Last Vital Signs Pulse 76 01/26/25 13:48 BP 126/68 01/26/25 13:48 Pulse Ox 97 01/26/25 13:48 Oxygen Delivery Method Room Air 01/26/25 13:48 BMI result Body Mass Index 23.8 Tobacco/Smoking Status: Tobacco use Status Tobacco use date assessed 01/26/25 01/26/25 13:58 Patient Tobacco Use Status Former Tobacco user 01/26/25 13:49 e-Cigarette/Vaping Use Never Used 01/26/25 13:49 Thrive Assessment: Date of Thrive Assessment Date Thrive assessed 01/11/25 01/26/25 13:49 Coding Level of Care Code Est Pt Level 3 (28587) Diagnoses Strain of right knee, initial encounter S86.911A Encounter type: initial encounter Laterality: right Assessment & Plan Assessment & Plan (1) Knee strain: Code(s): S86.919A - Strain of unspecified muscle(s) and tendon(s) at lower leg level, unspecified leg, initial encounter Category: Medical Qualifiers: Encounter type: initial encounter Laterality: right Qualified Code(s): S86.911A - Strain of unspecified muscle(s) and tendon(s) at lower leg level, right leg, initial encounter Plan History - The patient is a 74-year-old female presenting with right knee pain following trauma received from an impact injury involving two dogs approximately two weeks ago. - She reports a delay in symptom onset, with significant pain developing two weeks post-incident, particularly affecting her mobility and ability to navigate stairs. - There is noted deep pain in the right leg lateral to knee with point tenderness, possibly associated with muscle and bone, along with swelling. - Concurrent discomfort is reported in her left knee, which has previously undergone a knee replacement, though she describes longstanding sensation issues without significant recent changes. - She has utilized ibuprofen, which provides relief but was initially reluctant due to her existing medication regimen. No difficulty walking Problem List - Acute Injury to the Right knee - Post Knee Replacement Pain in Left Leg Patient Instructions - Use ibuprofen or Aleve as needed for pain relief with meals to minimize stomach upset. - Book an appointment for physical therapy - Apply gentle massage with olive oil or similar to the affected area to promote circulation, especially when seated in the evening. - Monitor symptoms and seek follow-up care if pain persists or worsens despite therapy. Orders: Orders PT Evaluation and Treatment Today M25.561 - Pain in right knee, S86.479Z - Strain of unspecified muscle(s) and tendon(s) at lower leg level, unspecified leg, initial encounter
--- OUTSIDE RECORDS SUMMARY | 2025-01-26 15:44 | XMS_ITS | Patient Health Record ---
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) Active confirmed Vital Signs Blood pressure diastolic 70 mm Hg 11/02/2024 Height 63 in 11/02/2024 Blood pressure systolic 126 mm Hg 11/02/2024 Weight 135 lbs 11/02/2024 BMI 23.91 kg/m2 11/02/2024 Encounters Encounter Location Date Provider Diagnosis [facility] [place] [address] [place] [address] 11/02/2024 Allison Jeff Pain in right toe(s) [...] Details Provider Name:Allison milan, 04/29/2025 09:00:00 AM, [address] [place] [address], [phone], Insurance Providers Payer Name Payer Address Payer Phone Subscriber Number Group Number Insured Name Patient Relationship to Insured Coverage Start Date Coverage End Date [facility] 65 Medicare Preferred [address] [place] [address] [id number] Haleigh Miranda Self - patient is the insured Medical (General) History Medical History History ICD Code Arthritis Heart disease Measles Mumps Chicken pox CAD Back,Hip,and Knee pain Broken bones Joint implants/screws Bone implants/screws Surgical History Surgery Date(Month/Year) basal carcinoma 2008 shoulder surgery 04/2011 knee replacement 2021 carpal tunnel surgery 09/2024
--- OUTSIDE RECORDS SUMMARY | 2025-01-26 15:45 | XMS_ITS ---
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) Active confirmed Vital Signs Height 63 in 11/02/2024 Weight 135 lbs 11/02/2024 BMI 23.91 kg/m2 11/02/2024 Blood pressure systolic 126 mm Hg 11/02/19 25 Blood pressure diastolic 70 mm Hg 025 Encounters Encounter Location Date Provider Diagnosis [facility] [place] [address] [place] [address] 11/02/2024 Allison Jeff Pain in right toe(s) [...] Provider Name:Allison milan, 04/29/2025 09:00:00 AM, [address] [place], [address], Progress Notes * Haleigh MILLER LDOB: (74 yo F)Acc No.[id number]:11/02/2024 Progress Notes Patient:?Haleigh MILLER Provider:?Allison Jeff DPM :1950???Age:74 Y???Sex:Female D ate:11/02/2024 Address:[address] [place] [address] [place], [id number] Pcp:Leslie Canseco MD Subjective: * Chief Complaints: [...] Jeff DPM Date:? Generated for Arelis martinez/Jeanne/Fransisca on:?01/26/2025 03:44 PM EDT History and Physical Notes * HPI [...]
== END 2025-01-26 14:44 | disposition home or self-care (01) ==
PROVIDERS: PCP Internal Medicine; Visit Provider Internal Medicine
DX: S86.911A Strain of unspecified muscle(s) and tendon(s) at lower leg level, right leg, initial encounter (principal)

== ENCOUNTER → 2025-01-26 13:35 | Outpatient (BNVA) | payer MEDICARE, SELFPAY | PROVIDERS: PCP Internal Medicine; Visit Provider Internal Medicine | DX: S86.911A Strain of unspecified muscle(s) and tendon(s) at lower leg level, right leg, initial encounter (principal); M25.561 Pain in right knee; W54.1XXA Struck by dog, initial encounter; Y93.9 Activity, unspecified; Y92.9 Unspecified place or not applicable; Y99.9 Unspecified external cause status | CPT/HCPCS: 99212 ==

== ENCOUNTER → 2025-05-16 08:40 | Outpatient (REF) | payer MEDICARE, SELFPAY ==
--- OUTSIDE RECORDS SUMMARY | 2025-04-29 05:00 | XMS_ITS ---
Author Organization [facility] Address [address] [place] [address] Care Team Providers Care Audit Machine Operator Name Role Phone Ajith PAINTER, [facility] Primary Care Provider Allison Gutiérrez Unavailable [phone] Allergies Allergen (clinical drug ingredient) Drug/Non Drug [...] ve Encounters Encounter Location Date Provider Diagnosis [facility] [address] [place] [address] 04/29/2025 Allison Jeff Plan Of Treatment No Information Progress Notes * ANGELA, Gail LDOB: [birth year] (75 yo F)Acc No.[id number]:04/29/2025 Progress Note Patient: Haleigh MCKENZIE Provider: Taylor Jeff DPM :1950 A ge:75 Y S ex:Female Date:04/29/2025 Address:[address] [place] [address] [place], [id number] Pcp:Leslie Canseco MD Subjective: * Chief Complaints: [...] Date: 04/29/2025 Generated for Arelis martinez/Jeanne/Fransisca on: 05/16/2025 09:03 AM EDT
--- OUTSIDE RECORDS SUMMARY | 2025-05-12 23:59 | XMS_ITS | Continuity of Care Document ---
Author Organization [facility] Delia tinocos [facility] Address [address] [place] [address], [address] [address]- Care Team Providers Care Promotions Producer Name Role Phone Ajith PAINTER, [facility] Primary Care Physician Encounter [facility] Date(s): 04/12/25 - 05/12/25 [facility] Delia Mendozas [facility] [address] [place] [address], [address] [place] [id number] Attending Physician: Cecilia Calderon Admitting Physician: Cecilia Calderon Referring Physician: Cecilia Calderon Encounter Type: Triage Allergies, Adverse Reactions, Alerts Substance Criticality Severity Reaction Reaction Severity Status sulfa drugs anaphalaxis Rash [...] to exceed 3000 mg/day, Refills 0, Maintenance, 3/31/22 8:22:00 AM EDT, Partial fill upon patient request if the prescription is for a schedule II opioid drug. Start Date: 01/17/22 Status: Ordered Repeat number: 1 amLODIPine 5 mg oral tablet 5 mg, 1, tablet, By Mouth, Daily, # 30 tablet, Refills 0, Maintenance, 09/24/19 8:37:24 AM EST Start Date: 09/24/19 Status: Ordered Quantity: 30.0 Unit: tablet Repeat number: 1 Coreg 25 mg oral tablet 25 mg, 1, tablet, By Mouth, 2 times a day, # 180 tablet, Refills 0, Maintenance, 07/26/19 8:58:10 AMEDT Start Date: 07/26/19 Status: Ordered Quantity: 180.0 Unit: tablet Repeat number: 1 docusate sodium 100 mg oral capsule 1 capsule = 100 mg, By Mouth, 2 times a day, # 60 capsule, 0 Refills, Maintenance, 01/17/22 8:15:00 AM EDT, [facility] upon patient request if the prescription is for a schedule II opioid drug., 160, cm, 01/17/22 6:38:00 EDT, Height, 67.2, kg, 01/16/22 6:11:00 EDT, Dry Weight Start Date: 01/17/22 Status: Ordered Quantity: 60.0 Unit: capsule Repeat number: 1 Ecotrin 325 mg oral delayed release tablet 1 tablet = 325 mg, By Mouth, 2 times a day, # 60 tablet, 0 Refills, Maintenance, 01/17/22 8:15:00 AMEDT, EC Tablet, [facility], Partial fill upon patient request if the prescription is for a schedule II opioid drug., 160, cm, 01/17/22 6:38:00 EDT, Height, 67.2, kg, 01/16/22 6:11:00 EDT, Dry Weight Start Date: 01/17/22 Stop Date: 02/16/22 Status: Ordered Quantity: 60.0 Unit: tablet Repeat number: 1 furosemide 20 mg oral tablet 20 mg, By Mouth, Daily, # 30 tablet, Refills 0, Tot. Refills 0, Maintenance, 09/03/17 12:21:15 PM EST, Route to Pharmacy Electronically, [place] [address] Start Date: 09/03/17 Stop Date: 10/03/17 Status: Ordered Quantity: 30.0 Unit: tablet Repeat number: 1 Lipitor 80 mg oral tablet = 80 mg, By Mouth, Daily at bedtime, # 30 tablet, 0 Refills, Maintenance, Tablet, Route to PharmacyElectronically, [id number], [place] [id number] Start Date: 09/03/17 Stop Date: 10/03/17 Status: Ordered Quantity: 30.0 Unit: tablet Repeat number: 1 LORazepam 0.5 mg oral tablet 0.5 tablet = 0.25 mg, By Mouth, 2 times a day, 0 Refills, Maintenance, 01/16/24 9:33:00 AM EDT, Tablet, Partial fill upon patient request if the prescription is for a schedule II opioid drug. Start Date: 01/16/24 Status: Ordered Repeat number: 1 losartan 100 mg oral tablet 1 tablet = 100 mg, By Mouth, Daily, # 30 tablet, 0 Refills, Maintenance, 10/07/18 8:53:09 AM EST, Tablet Start Date: 10/07/18 Status: Ordered Quantity: 30.0 Unit: tablet Repeat number: 1 meloxicam 15 mg oral tablet 1 tablet = 15 mg, By Mouth, Daily, # 30 tablet, 0 Refills, Maintenance, 01/17/22 8:16:00 AM EDT, Tablet, [facility] 3, Partial fill upon patient request if the prescription is for a schedule II opioid drug., 160, cm, 01/17/22 6:38:00 EDT, Height, 67.2, kg, 01/16/22 6:11:00 EDT, Dry Weight Start Date: 01/17/22 Status: Ordered Quantity: 30.0 Unit: tablet Repeat number: 1 MiraLax Powder 1 pack/packet = 17 Gm, By Mouth, Daily, PRN Constipation, 0 Refills, Maintenance, 01/17/22 8:22:00 AM EDT, Powder, Partial fill upon patient request if the prescription is for a schedule II opioid drug. Start Date: 01/17/22 Status: Ordered Repeat number: 1 pantoprazole 40 mg oral delayed release tablet 1 tablet = 40 mg, By Mouth, Daily, # 30 tablet, 0 Refills, Maintenance, 12/28/21 9:10:00 AM EST, EC Tablet Start Date: 12/28/21 Status: Ordered Quantity: 30.0 Unit: tablet Repeat number: 1 senna 187 mg oral tablet 1 tablet = 8.6 mg, By Mouth, Daily at bedtime, PRN as needed for constipation, 0 Refills, Maintenance, 01/17/22 8:22:00 AM EDT, Tablet, Partial fill upon patient request if the prescription is for a schedule II opioid drug. Start Date: 01/17/22 Status: Ordered Repeat number: 1 Problem List Condition Confirmation Course Effective Dates [...] 30 days ago entered on: 10/19/18 Sex Sex Representation Female (finding) Patient Care team information Care Team Personnel Name: Leslie Canseco MD Position: Reference Physician Member Role: PCP Address: [address] [place] [address] Telecom: Care Team Related Persons Name: PEYTON MILLER Insurance Providers Guarantor name: PEYTON ANGELA Health Plan Information #: 1 Payer: [facility] PPO Payer Identifier: RICHIE Member Number: [id number] Group Number: [id number] Subscriber Identifier: [id number] Relationship to Subscriber: self Coverage Type: Medicare PPO Coverage Verification Date: NA Telecom: NA Address:
--- NOTE | 2025-05-16 08:42 | CA_ITS ---
Transthoracic Echocardiogram Patient (Last, First, Middle): Haleigh Miranda L Gender: Female Date of : 1950 Age: 75 Procedure Date: 05/16/2025 Procedure Type: Transthoracic Echocardiogram Location: OP Height: 160. 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 Normal LV ejection fraction of 60 65% with grade 1 diastolic dysfunction 2. Mildly dilated left atrium 3. Mild aortic stenosis and regurgitation 4. Normal RV systolic pressure 5. No gross pericardial effusion Findings Left Ventricle Normal left ventricular size, thickness, and systolic function. The visually estimated ejection fraction is between 60-65%. Spectral Doppler is indicative of an impaired relaxation filling pattern. E/E prime ratio is <8, consistent with normal filling pressures. Evidence suggests grade I (mild) diastolic dysfunction. Right Ventricle Normal right ventricular cavity size and systolic function. Atria The left atrium is mildly dilated. There is no evidence of interatrial shunt. The right atrium is normal in size. Aortic Valve There is mild calcification of the aortic valve. There is mild aortic valve stenosis. The peak aortic gradient is 17 mmHg.The mean gradient is 9 mmHg. The aortic valve area is 1.77 cm2. There is mild aortic valve regurgitation. Mitral Valve There is mild anterior and moderate posterior mitral leaflet thickening. There is moderate mitral annular calcification. There is trace mitral valve regurgitation. There is no mitral valve stenosis. Pulmonic Valve The pulmonic valve is likely normal. There is trace pulmonic valve regurgitation. Tricuspid Valve Normal tricuspid valve structure. There is trace tricuspid valve regurgitation. The right ventricular systolic pressure is normal. The right ventricular systolic pressure is 20 mmHg. Normal right atrial pressure. There is no evidence of pulmonary hypertension. Great Vessels All visible segments of the aorta are normal in size. The pulmonary artery was not well visualized. There is no dilatation of the ascending aorta measuring 3.40 cm. Venous The inferior vena cava is normal in size and collapses greater than 50% with inspiration. Pericardium/Pleural There is no evidence of pericardial effusion. Prior Study Comparison No significant change compared to prior study dated: 05/16/2023. Measurements 2D Linear Measurements IVSd: 0.82 0.6-0.9/0.6-1.0 cm LVIDd: 4.45 3.9-5.3/4.2-5.9 cm LVIDd Index: 2.76 2.4-3.2/2.2-3.1 cm/m2 LVIDs: 2.55 2.0-3.6 cm LVPWd: 0.80 0.7-1.1 cm LA Diam: 3.80 2.7-3.8/3.0-4.0 cm LAIDs Index: 2.36 1.5-2.3 cm/m2 LV Mass: 141.41 67-162/88-224 g LV Mass Index: 87.83 43-95/49-115 g/m2 LVOT Diam: 1.90 3.0+(-)1.3 cm 2D Systolic Function EF 4C: 64.70 >55% EF 2C: 62.00 >55% EF BiP: 62.80 >55% Mitral Valve MV Pk E: 1.00 MV PK A: 1.13 MV Decel Time: 275.00 E/A: 0.90 E'Lateral: 7.72 E'Medial: 5.77 E/E' Med: 17.30 E/E' Lat: 13.00 PHT: 81.00 MVA PHT: 2.72 Decel [place]: 3.64 Aortic Valve AoV Pk Valentin: 2.07 AoV Mn Valentin: 1.44 AoV VTI: 0.47 AoV Pk Grad: 17.00 Aov Mn Grad: 9.00 LAWANDA Cont.VTI: 1.77 LVOT LVOT Pk Valentin: 1.21 LVOT Mn Valentin: 0.84 LVOT VTI: 0.29 LVOT Pk Grad: 6.00 LVOT Mn Grad: 3.00 LVOT Diam: 1.90 LVOT Area: 2.84 Diastolic Function MV Pk E: 1.00 MV Pk A: 1.13 E/A: 0.90 E'Medial: 5.77 E/E' Med: 17.30 E' Laterial: 7.72 E/E' Lat: 13.00 Right Ventricle TAPSE (mm): 25.60 TVS' Valentin: 14.60 Tricuspid Valve TR Pk Valentin: 2.04 TR Pk Grad: 17.00 RA Press: 3.00 RVSP: 20.00 Great Vessels Aorta Sinus of Valsalva: 3.20 2.0-3.5 cm Ao Asc: 3.40 2.1-3.4 cm Ao Arch: 2.80 Pulmonary Valve PV Pk Valentin: 0.95 Peak PV Grad: 4.00 Updated in Other Vendor System with Status of Final Mario Green MD electronically signed on 05/16/2025 10:13:58 AM with status of Final
--- OUTSIDE RECORDS SUMMARY | 2025-05-16 09:03 | XMS_ITS | Patient Health Record ---
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 Name Role Phone Jeffery Littlejohn MD Primary Care Provider Jose Marlow Jr Unavailable Allergies Allergen (clinical drug ingredient) Drug/Non Drug Allergy documented on EMR Reaction Allergy Type Onset Date Status Sulfa Unknown Drug Allergy Active Shellfish (FN) shellfish (uncoded) Unknown Allergy Active Reason For Referral No Information Medications Medication SIG (Take, Route, Frequency, Duration) Notes Start Date End Date Status Lorazepam prn Active Problems Problem Type SNOMED Code ICD Code Onset Dates Problem Status W/U Status Risk Notes Problem [id number] Dysphagia, unspecified type (R13.10) Active confirmed Plan Of Treatment Future Test Test Name Order Date UPPER GI ENDOSCOPY B[place] DILATION OF ESOPH 09/05/2016 Insurance Providers Payer Name Payer Address Payer Phone Subscriber Number Group Number Insured Name Patient Relationship to Insured Coverage Start Date Coverage End Date [facility] [address] [place], [place] [id number] [phone] [id number] WILMER MILLER Self - patient is the insured Medical (General) History Medical History History ICD Code Denies [place],DM,CVA,Lung disease,renal dise ase eczema Surgical History Surgery Date(Month/Year) shoulder surgery reconstructed 2009
== END ==
LOC: HO.CARD 08:40
PROVIDERS: PCP Internal Medicine; Visit Provider Internal Medicine Cardiovascular Disease
DX: I50.20 Unspecified systolic (congestive) heart failure (principal)
CPT/HCPCS: 93306

== ENCOUNTER → 2025-05-16 08:42 | Outpatient (BNV) | payer MEDICARE, SELFPAY | PROVIDERS: PCP Internal Medicine; Visit Provider Internal Medicine Cardiovascular Disease | DX: I50.20 Unspecified systolic (congestive) heart failure (principal) | CPT/HCPCS: 93306 ==

== ENCOUNTER 2025-05-24 09:14 | Outpatient (AMB) | payer MEDICARE, SELFPAY ==
--- NOTE | 2025-05-24 09:31 | A.OFFVIS_ITS ---
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: No Allergies shellfish derived (SHELLFISH DERIVED) Allergy (Intermediate, Verified 01/26/25 13:57) THROAT CLOSING Sulfa (Sulfonamide Antibiotics) (SULFA (SULFONAMIDE ANTIBIOTICS)) Allergy (Mild, Verified 01/26/25 13:57) FLU LIKE SYMPTOMS Medication List - Last Reconciled 05/24/25 by Mario Green MD amlodipine 5 mg PO DAILY aspirin 81 mg PO DAILY atorvastatin 80 mg PO DAILY carvedilol 25 mg PO BID cholecalciferol (vitamin D3) 25 mcg PO DAILY 90 days furosemide 20 mg PO DAILY losartan 100 mg PO DAILY meloxicam 15 mg PO DAILY 90 days omeprazole magnesium 40 mg (2 x 20 mg) PO DAILY 90 days trazodone 25 mg (1/2 x 50 mg) PO BEDTIME PRN HPI Comments Details: Haleigh comes for follow-up. From cardiac perspective she has been doing very well. She has been taking all her medications. She denies any worsening symptoms of shortness of breath, orthopnea, PND. No exertional chest pain. Lightheadedness, syncope. Her main issue currently is bilateral carpal tunnel syndrome which prevents her from exercising and she is feeling that she has lost some muscle mass. She has not had any fall issues. Recent echocardiogram showed preserved LV ejection fraction with mild aortic stenosis which is unchanged from before. [facility] Medical History Heart failure with reduced ejection fraction CAD (coronary artery disease) HTN (hypertension) Congestive heart failure CHD (congenital heart disease) Eczema Surgical History Status post creation of urethral sling by suprapubic approach Basal cell carcinoma Shoulder arthritis H/O cardiac catheterization Social History Housing: House Alcohol intake: current Alcohol intake frequency: holidays/special occasions only Alcohol type: hard liquor Patient Tobacco Use Status: Former Tobacco user e-Cigarette/Vaping Use: Never Used service: No Current occupational status: retired Cognitive needs: No Hearing needs: No Vision needs: Yes (contacts) Review of Systems Const Denies chills, Denies fatigue, Denies fever(s), Denies frequent falls, Denies weakness, Denies weight gain and Denies weight loss ENT Denies dizziness Card Denies chest pain, Denies leg edema, Denies lightheadedness, Denies palpitations, Denies dyspnea, Denies dyspnea on exertion, Denies orthopnea and Denies other (loss of consciousness) Resp Denies cough, Denies dyspnea and Denies dyspnea on exertion GI Denies hematochezia and Denies change in stool character Musc Denies abnormal gait, Denies muscle weakness, Denies numbness, Denies radiating pain into limb and Denies tingling Neuro Denies abnormal gait, Denies dizziness, Denies frequent falls, Denies numbness, Denies tingling and Denies weakness Endo Denies fatigue and Denies palpitations Physical Exam Vital Signs: Last Vital Signs Pulse 68 05/24/25 09:32 BP 122/68 05/24/25 09:32 BMI result Body Mass Index 23.8 Const General: cooperative, comfortable, no acute distress, alert, awake and well groomed Nutritional Appearance: average body habitus Orientation/consciousness: patient oriented x3 Limitations: no limitations Neck Neck: Yes trachea midline, Yes supple and Yes no JVD Resp Effort & Inspection: normal respiratory effort Auscultation: clear to auscultation bilaterally Cardio Jugular venous distension: no JVD Palpation: normal PMI Rate: regular rate Rhythm: regular rhythm Heart sounds: S1 normal heart sound present and S2 normal heart sound present GI Auscultation: normal bowel sounds Skin General skin exam: no rashes or lesions noted Neuro General: patient oriented x3 and no focal motor deficits Extrem General: Yes no clubbing, cyanosis or edema Psych Appearance: grossly normal Office Procedures EKG Details: EKG shows normal sinus rhythm with normal EKG [id number], Complete Assessment & Plan Assessment & Plan (1) Heart failure with recovered ejection fraction (HFrecEF): Code(s): I50.20 - Unspecified systolic (congestive) heart failure Category: Medical Plan: Heart failure with recovered LV ejection fraction on current medical therapy neurohormonal modulation. Clinically appears to be euvolemic and well compensated with NYHA class 1 symptoms. Continue current low-dose diuretic therapy. Continue current neurohormonal modulation with losartan and carvedilol. Signs and symptoms of heart failure were discussed and she understands them well. Continue the same. Continue aggressive blood pressure control. (2) CAD (coronary artery disease): Code(s): I25.10 - Atherosclerotic heart disease of [place] coronary artery without angina pectoris Category: Medical Qualifiers: Coronary Disease-Associated Artery/Lesion type: [place] artery [place] vs. transplanted heart: [place] heart Associated angina: without angina Qualified Code(s): I25.10 - Atherosclerotic heart disease of [place] coronary artery without angina pectoris Plan: CAD without any symptoms of angina current medical therapy. Has done well on current medical therapy. Continue lifelong aspirin therapy. Continue high- intensity statin therapy with target goal LDL less than 70 mg/dL. Continue aggressive blood pressure control which is currently well optimized. Target goal blood pressure less than 130/84. Low-salt diet was advised. Advised to monitor blood pressure at home and maintain a log. (3) Aortic stenosis: Code(s): I35.0 - Nonrheumatic aortic (valve) stenosis Category: Medical Plan: Aortic stenosis which is mild. No interventions required. Continue aggressive medical therapy as above. Will follow up in the clinic in 1 year's time, sooner p.r.n.. Thank you for allowing me to partake in her care Coding Level of Care Code Est Pt Level 4 (46618) Complex EM visit Add On G2211 Diagnoses Heart failure with recovered ejection fraction (HFrecEF) I50.20 Coronary artery disease involving [place] coronary artery of [place] heart without angina pectoris I25.10 Coronary Disease-Associated Artery/Lesion type: [place] artery [place] vs. transplanted heart: [place] heart Associated angina: without angina Aortic stenosis I35.0 CPT Codes EKG - CPT: 43658-[id number], Complete ([id number])
[2025-05-24 09:32] VITALS: BP 122/68; PULSE 68; BMI 23.8
== END 2025-05-24 10:00 | disposition home or self-care (01) ==
LOC: HO.HCS 09:15
PROVIDERS: PCP Internal Medicine; Visit Provider Internal Medicine Cardiovascular Disease
DX: I50.20 Unspecified systolic (congestive) heart failure (principal); I25.10 Atherosclerotic heart disease of native coronary artery without angina pectoris; I35.0 Nonrheumatic aortic (valve) stenosis
CPT/HCPCS: 93010; 99214; G2211

== ENCOUNTER → 2025-05-24 09:14 | Outpatient (BNVA) | payer MEDICARE, SELFPAY | PROVIDERS: PCP Internal Medicine; Visit Provider Internal Medicine Cardiovascular Disease | DX: I25.10 Atherosclerotic heart disease of native coronary artery without angina pectoris (principal); I50.20 Unspecified systolic (congestive) heart failure; I35.0 Nonrheumatic aortic (valve) stenosis | CPT/HCPCS: 93005; 99212 ==

== ENCOUNTER 2025-07-15 12:38 | Outpatient (AMB) | payer MEDICARE, SELFPAY ==
--- OUTSIDE RECORDS SUMMARY | 2025-04-29 05:00 | XMS_ITS ---
Author Organization [facility] Address [address] [place] [address] Care Team Providers Care Flight Test Data Acquisition Technician Name Role Phone Ajith PAINTER, [facility] Primary Care Provider Allison Gutiérrez Unavailable [phone] Allergies Allergen (clinical drug ingredient) Drug/Non Drug [...] ve Encounters Encounter Location Date Provider Diagnosis [facility] [address] [place] [address] 04/29/2025 Allison Jeff Plan Of Treatment No Information Progress Notes * ANGELA, Gail LDOB: 9 (75 yo F)Acc No.[id number]:04/29/2025 Progress Note Patient: Haleigh MCKENZIE Provider: Taylor Jeff DPM :1950 A ge:75 Y S ex:Female Date:04/29/2025 Address:[address] [place], [place] [address], [id number] Pcp:Leslie Canseco MD Subjective: * Chief Complaints: [...] Pending * Provider: Taylor Jeff DPM Date: 04/29/2025 Generated for Arelis martinez/Jeanne/Fransisca on: 07/15/2025 02:07 PM EDT
[2025-07-15 12:41] VITALS: BP 130/70; PULSE 74; O2SAT 97; BMI 24.3
--- NOTE | 2025-07-15 12:41 | A.OFFPC_ITS ---
Vital Signs 07/15/25 12:41 Height 5 ft 3 in Weight 137 lb BMI 24.3 BP 130/70 Blood Pressure Location Rt brachial Position Sitting Pulse 74 Pulse Source Pulse Oximeter Pulse Oximetry (%) 97 Oxygen Delivery Method Room Air Intake Visit Reasons: 6m follow up [employer] [id number] Required: No Accompanied by: Self / Same As Patient Allergies shellfish derived (SHELLFISH DERIVED) Allergy (Intermediate, Verified 07/15/25 12:41) THROAT CLOSING Sulfa (Sulfonamide Antibiotics) (SULFA (SULFONAMIDE ANTIBIOTICS)) Allergy (Mild, Verified 07/15/25 12:41) FLU LIKE SYMPTOMS Medication List - Last Reconciled 07/15/25 by Leslie Canseco MD amlodipine 5 mg PO DAILY aspirin 81 mg PO DAILY atorvastatin 80 mg PO DAILY carvedilol 25 mg PO BID cholecalciferol (vitamin D3) 25 mcg PO DAILY 90 days furosemide 20 mg PO DAILY losartan 100 mg PO DAILY meloxicam 15 mg PO DAILY 90 days omeprazole 40 mg (2 x 20 mg) PO DAILY 90 days trazodone 25 mg (1/2 x 50 mg) PO BEDTIME PRN Tobacco use date assessed: 01/26/25 Fall risk assessment: No Falls in past year Last assessed Fall Risk: 07/15/25 Dental Screening Dental Screen Date: 01/26/25 HPI 6m follow up HPI Details History The patient is a 75-year-old female presenting for medication review . Heart Failure and Aortic Stenosis: - Established care with cardiology for m anagement. - Reports discussion from cardiology fol low-up in May, indicating stable status. Prolapsed Uterus: - Scheduled for surgery on September 05 . - Discussed need for surgical clearance, anticipated anesthesia, and pre- surgical planning. Carpal Tunnel Syndrome: - Status post carpal tunnel surgery in [facility]. - Reports numbness in hand during daily activities and exercises, more prominent with increased activity. - symptoms are returning and getting wor se Osteoarthritis: - Chronic joint pain managed with Meloxi cam. - Patient to address medication refill i ssues. Osteopenia: - continue Vit D. Hypertension: - Managed with carvedilol and losartan. GERD: - Managed with omeprazole. Medical History: - Heart failure with preserved ejection fraction - Aortic stenosis - Osteopenia - Osteoarthritis - Essential hypertension - GERD - Vitamin D deficiency Surgical History: - Carpal tunnel surgery (September of the previous year) Medications: - Carvedilol 25 mg BID for hypertension - Furosemide for heart failure - Losartan for hypertension - Meloxicam for osteoarthritis - Omeprazole for GERD - Trazodone 25 mg at bedtime for sleep - Vitamin D supplement Social History: - Works part-time, two days a week, [employer] aids in maintaining cognitive sharpn ess. Problem List - Heart failure with preserved ejection fraction - Aortic stenosis - Prolapsed uterus - Post-surgical carpal tunnel syndrome - Osteoarthritis - Osteopenia - Essential hypertension - GERD - Vitamin D deficiency Diagnostic results - Labs: CBC within normal limits, no ane franci, normal white cell count, normal electrolytes, kidney functions stable, one liver enzyme elevated but stable, cholesterol levels good, low vitamin D. Pilot Point of Care - Coordination with cardiology and [facility] surgical team for pre-surgical clearance and procedures Patient Instructions - Ensure timely clearance for upcoming s urgery. - Maintain current medication regimen. - Start weekly high-dose vitamin D suppl ementation. - Monitor symptoms and seek advice if nu mbness in hands worsens. - Follow up with blood test by the end o next month as instructed. Review of Systems General: No fever no chills neurological: No headaches no dizziness ear nose throat: No sore throat no hearing difficulty no ear pain cardiovascular: No syncope, no chest pain, no palpitations gastrointestinal: No nausea vomiting or diarrhea skin: No new complaints Physical Exam general: No acute distress HEENT: No acute findings neck: Supple respiratory system: Lungs are clear, able to talk in full sentences, no audible wheeze, no stridor cardiovascular: S1-S2 gastrointestinal: No pain extremities: No new findings, no swelling, prominent arthritic changes in hands both side FRONT DESK SPECIALIST: Alert awake oriented x3 motor sensory intact skin: Normal turgor PFSH Medical History Heart failure with reduced ejection fraction CAD (coronary artery disease) HTN (hypertension) Congestive heart failure CHD (congenital heart disease) Eczema Surgical History Status post creation of urethral sling by suprapubic approach Basal cell carcinoma Shoulder arthritis H/O cardiac catheterization Social History Housing: House Alcohol intake: current Alcohol intake frequency: holidays/special occasions only Alcohol type: hard liquor Patient Tobacco Use Status: Former Tobacco user e-Cigarette/Vaping Use: Never Used service: No Current occupational status: retired Cognitive needs: No Hearing needs: No Vision needs: Yes (contacts) Questionnaire PHQ-9 Over the last 2 weeks, how often have you been bothered by any of the following problems? 1. Little interest or pleasure in doing things: not at all 2. Feeling down, depressed, or hopeless: not at all 3. Trouble falling or staying asleep, or sleeping too much: several days 4. Feeling tired or having little energy: several days 5. Poor appetite or overeating: not at all 6. Feeling bad about yourself - or that you are a failure or have let yourself or your family down: not at all 7. Trouble concentrating on things, such as reading the newspaper or watching television: not at all 8. Moving or speaking so slowly that other people could have noticed. Or the opposite - being so fidgety or restless that you have been moving around a lot more than usual: not at all 9. Thoughts that you would be better off or of hurting yourself in some way: not at all Total score: 2 Depression Screening Interpretation: Negative Depression Screening Done: Yes 04835 - PHQ-9 Billing: Yes Source: Developed by Drs. Flo Hunter, Ruby Krishna, Joaquín White and colleagues, with an educational miguelangel from [employer]. Thrive Questionnaire Date Thrive assessed: 01/11/25 I am a: Patient What is your living situation today?: I have a steady place to live Within the past 12 months, did the food you bought not last and you didn't have the money to get more?: Never true Within the past 12 months, did you worry whether your food would run out before you got money to buy more?: Never true Do you have trouble paying for medicines?: No Do you have trouble getting transportation to medical appointments?: No Do you have trouble paying your heating and electricity bill?: No Do you have trouble taking care of your child, family member or friend?: No Do you have trouble with day-to-day activities such as bathing, preparing meals, shopping, managing finances, etc.?: No Are you currently unemployed and looking for a job?: No Are you interested in more education?: No Please select the resources that you would like help with: None Currently or been in a relationship where the following occur: No concerns reported THRIVE Score: 0 AUDIT C Alcohol Use Questionnaire (AUDIT-C) 1. How often do you have a drink containing alcohol?: 2-4 times a month 2. How many drinks containing alcohol do you have on a typical day when you are drinking?: 1 or 2 3. How often do you have six or more drinks on one occasion?: Never Total Score: 2 Score Reviewed/Action Taken: Yes DANELLE-7 AMB Questionnaire DANELLE-7 Date DANELLE - 7 assessed: 01/11/25 Feeling nervous, anxious, or on edge: 0 = Not at all Not being able to stop or control worryin = Not at all Worrying too much about different things: 0 = Not at all Trouble relaxin = Several days Being so restless that it is hard to sit still: 0 = Not at all Becoming easily annoyed or irritable: 0 = Not at all Feeling afraid as if something awful might happen: 0 = Not at all Total DANELLE-7 score (0-4 normal; 5-9 mild; 10-14 moderate; 15-21 severe): 1 Source: Developed by Drs. Flo Hunter, Ruby Krishna, Joaquín White and colleagues, with an educational miguelangel from [employer]. DANELLE-7 Assessment Billing DANELLE-7 Assessment Tool: DANELLE-7 Assessment 30195 Physical exam (Primary Care) Vital Signs: Last Vital Signs Pulse 74 07/15/25 12:41 BP 130/70 07/15/25 12:41 Pulse Ox 97 07/15/25 12:41 Oxygen Delivery Method Room Air 07/15/25 12:41 BMI result Body Mass Index 24.3 Tobacco/Smoking Status: Tobacco use Status Tobacco use date assessed 01/26/25 07/15/25 12:42 Patient Tobacco Use Status Former Tobacco user 07/15/25 12:42 e-Cigarette/Vaping Use Never Used 07/15/25 12:42 PHQ-9: PHQ-9 Score PHQ-9: Total score 2 07/15/25 13:03 Depression Screening Interpretation: Negative Thrive Assessment: Date of Thrive Assessment Date Thrive assessed 01/11/25 07/15/25 12:42 Currently or been in a relationship where the following occur: No concerns reported Coding Level of Care Code Est Pt Level 4 (18164) Complex EM visit Add On G2211 Diagnoses Primary hypertension I10 Hypertension type: primary hypertension Paresthesia of hand, bilateral R20.2 Heart failure with recovered ejection fraction (HFrecEF) I50.20 Difficulty sleeping G47.9 Primary osteoarthritis of hands, bilateral M19.041; M19.042 Heart failure with reduced ejection fraction I50.20 Coronary artery disease involving [place] coronary artery of [place] heart without angina pectoris I25.10 Coronary Disease-Associated Artery/Lesion type: [place] artery [place] vs. transplanted heart: [place] heart Associated angina: without angina Chronic GERD K21.9 Osteopenia, unspecified location M85.80 Osteopenia location: unspecified Anxiety, generalized F41.1 Aortic valve stenosis, etiology of cardiac valve disease unspecified I35.0 Cardiac valve disease etiology: etiology unspecified Polyarthralgia M25.50 Additional Codes PHQ-9 - 44717 - PHQ-9 Billing: Yes ([id number]) DANELLE-7 Assessment Billing - DANELLE-7 Assessment Tool: DANELLE-7 Assessment 24368 ([id number]) Assessment & Plan Assessment & Plan (1) HTN (hypertension): Code(s): I10 - Essential (primary) hypertension Category: Medical Qualifiers: Hypertension type: primary hypertension Qualified Code(s): I10 - Essential (primary) hypertension (2) Paresthesia of hand, bilateral: Code(s): R20.2 - Paresthesia of skin Category: Medical (3) Heart failure with recovered ejection fraction (HFrecEF): Code(s): I50.20 - Unspecified systolic (congestive) heart failure Category: Medical (4) Difficulty sleeping: Code(s): G47.9 - Sleep disorder, unspecified Category: Medical (5) Primary osteoarthritis of hands, bilateral: Code(s): M19.041 - Primary osteoarthritis, right hand; M19.042 - Primary osteoarthritis, left hand Category: Medical (6) Heart failure with reduced ejection fraction: Comment: Improved LVEF with neurohormonal modulation Code(s): I50.20 - Unspecified systolic (congestive) heart failure Category: Medical (7) CAD (coronary artery disease): Code(s): I25.10 - Atherosclerotic heart disease of [place] coronary artery without angina pectoris Category: Medical Qualifiers: Coronary Disease-Associated Artery/Lesion type: [place] artery [place] v s. transplanted heart: [place] heart Associated angina: without angina Qualified Code(s): I25.10 - Atherosclerotic heart disease of [place] coronary artery without angina pectoris (8) Chronic GERD: Code(s): K21.9 - Gastro-esophageal reflux disease without esophagitis Category: Medical (9) Osteopenia: Code(s): M85.80 - Other specified disorders of bone density and structure, unspecified site Category: Medical Qualifiers: Osteopenia location: unspecified Qualified Code(s): M85.80 - Other specified disorders of bone density and structure, unspecified site (10) Anxiety, generalized: Code(s): F41.1 - Generalized anxiety disorder Category: Medical (11) Aortic stenosis: Code(s): I35.0 - Nonrheumatic aortic (valve) stenosis Category: Medical Qualifiers: Cardiac valve disease etiology: etiology unspecified Qualified Code(s): I35.0 - Nonrheumatic aortic (valve) stenosis (12) Polyarthralgia: Code(s): M25.50 - Pain in unspecified joint Category: Medical Plan History The patient is a 75-year-old female presenting for medication review . Heart Failure and Aortic Stenosis: - Established care with cardiology for management. - Reports discussion from cardiology follow-up in May, indicating stable status. Prolapsed bladder : - Scheduled for surgery on September 05. - Discussed need for surgical clearance, anticipated anesthesia, and pre- surgical planning. Carpal Tunnel Syndrome: - Status post carpal tunnel surgery in September. - Reports numbness in hand during daily activities and exercises, more prominent with increased activity. - symptoms are returning and getting worse Osteoarthritis: - Chronic joint pain managed with Meloxicam. - Patient to address medication refill issues. Osteopenia: - continue Vit D. Hypertension: - Managed with carvedilol and losartan. GERD: - Managed with omeprazole. Medical History: - Heart failure with preserved ejection fraction - Aortic stenosis - Osteopenia - Osteoarthritis - Essential hypertension - GERD - Vitamin D deficiency Surgical History: - Carpal tunnel surgery (September of the previous year) Medications: - Carvedilol 25 mg BID for hypertension - Furosemide for heart failure - Losartan for hypertension - Meloxicam for osteoarthritis - Omeprazole for GERD - Trazodone 25 mg at bedtime for sleep - Vitamin D supplement Social History: - Works part-time, two days a week, which aids in maintaining cognitive sharpness. Problem List - Heart failure with preserved ejection fraction - Aortic stenosis - Prolapsed uterus - Post-surgical carpal tunnel syndrome - Osteoarthritis - Osteopenia - Essential hypertension - GERD - Vitamin D deficiency Diagnostic results - Labs: CBC within normal limits, no anemia, normal white cell count, normal electrolytes, kidney functions stable, one liver enzyme elevated but stable, cholesterol levels good, low vitamin D. Pilot Point of Care - Coordination with cardiology and [facility] surgical team for pre-surgical clearance and procedures Patient Instructions - Ensure timely clearance for upcoming surgery. - Maintain current medication regimen. - Start weekly high-dose vitamin D supplementation. - Monitor symptoms and seek advice if numbness in hands worsens. - Follow up with blood test by the end of next month as instructed. Orders: Orders Comprehensive Met. Panel 07/15/25 I10 - Essential (primary) hypertension, I50.20 - Unspecified systolic (congestive) heart failure Medications: New cholecalciferol (vitamin D3) 1,250 mcg PO QWEEK 13 caps 0RF 90 days Refilled meloxicam 15 mg PO DAILY 90 days 90 tabs 1RF cholecalciferol (vitamin D3) 25 mcg PO DAILY 90 caps 1RF 90 days meloxicam 15 mg PO DAILY 90 tabs 1RF 90 days
--- OUTSIDE RECORDS SUMMARY | 2025-07-15 14:07 | XMS_ITS | Patient Health Record ---
Author Organization [facility] Address [address] [place] [address] Care Team Providers Care Ditto Machine Operator Name Role Phone Jeffery Littlejohn MD Primary [...] Problem Status W/U Status Risk Notes Problem [id number] Dysphagia, unspecified type (R13.10) Active confirmed Plan Of Treatment Future Test Test Name Order Date UPPER GI ENDOSCOPY [place] DILATION OF ESOPH 09/05/2016 Insurance Providers Payer Name Payer Address Payer Phone Subscriber Number Group Number Insured Name Patient Relationship to Insured Coverage Start Date Coverage End Date [facility] [address] [place], [place] [phone] [id number] WILMER MILLER Self - patient is the insured Medical (General) History Medical History History ICD Code Denies [place],DM,CVA,Lung disease,renal dise ase eczema Surgical History Surgery Date(Month/Year) shoulder surgery reconstructed 2009
--- OUTSIDE RECORDS SUMMARY | 2025-07-15 14:08 | XMS_ITS | Patient Health Record ---
Author Organization [facility] Luda Mccormack Address [address] [place] [address] Care Team Providers Care Toxicology Supervisor Name Role Phone Ajith PAINTER, Asma Primary Care Provider Allison Gutiérrez Unavailable [phone] Allergies Allergen (clinical drug ingredient) Drug/Non Drug [...] Duration) Notes Start Date End Date Status Alendronate Sodium 70 MG 1 tablet Orally once a week Not-Taking Losartan Potassium 100 MG Orally Active Omeprazole 20 MG 2 capsules Orally On ce a day Active Furosemide 20 MG Orally Act celia Aspirin 81 MG Orally Active Carvedilol 25 MG Orally BID Ac tive amLODIPine Besylate 5 MG 1 tablet Orally Once a day Active Meloxicam 15 MG Orally Acti ve Atorvastatin Calcium 80 MG Orally Active Immunizations Vaccine Route Administration Date Status Comme nts Influenza Unknown 08/11/2024 Administered Social History Tobacco Use: Social History Observation [...] year? Yes How often did you have a dri nk containing alcohol in the past year? Monthly or less (1 point) How many drinks did you have on a typical day when you were drinking in the past year? 1 or 2 drinks (0 point) How often did you have six o r more drinks on one occasion in the past year? Never (0 point) Points 1 Interpretation Negative Problems Problem Type SNOMED Code ICD Code Onset Dates Problem Status W/U Status Risk Notes Problem Localized, primary osteoarthritis of the ankle and/or foot (245396820) Primary osteoarthritis, right ankle and foot (M19.071) Active confirmed Problem Pain due to varicose veins of lower extremity (484100772) Symptomatic varicose veins of both lower extremities (I83.893) Active confirmed Vital Signs Blood pressure diastolic 70 mm Hg 05/03/2025 Height 5ft 2in in 05/03/2025 Blood pressure systolic 126 mm Hg 05/03/2025 Weight 135 lbs 05/03/2025 BMI 24.69 kg/m2 05/03/2025 Encounters Encounter Location Date [facility] [address] [facility]/02/2024 Allison Perica Pain in right toe(s) M79.674 ; Onychomycosis B35.1 ; Pain in left toe(s) M79.675 and Symptomatic varicose veins of both lower extremities I83.[address] [address] 05/03/2025 Allison Perica Pain in right toe(s) M79.674 ; Onychomycosis B35.1 ; Pain in left toe(s) M79.675 and Symptomatic varicose veins of both lower extremities I83.[address] [facility] [address] [address] [address] 04/29/2025 Allison Perica Assessments Encounter Date Diagnosis (ICD Code) Assessment Notes Treatment Notes Treatment Clinical Notes Section Notes 11/02/2024 Pain in right toe(s) (ICD-10 - M79.674) 05/03/2025 Pain in right toe(s) (ICD-10 - M79.674) 05/03/2025 Onychomycosis (ICD-10 - B35.1) 05/03/2025 Pain in left toe(s) (ICD-10 - M79.675) 11/02/2024 Onychomycosis (ICD-10 - B35.1) 11/02/2024 Pain in left toe(s) (ICD-10 - M79.675) 11/02/2024 Symptomatic varicose veins of both lower extremities (ICD-10 - I83.893) 05/03/2025 Symptomatic varicose veins of both lower extremities (ICD-10 - I83.893) Plan Of Treatment Pending Test Test Name Order Date X ray : Foot, left 3V 04/28/2019 X ray : Foot, left 3V 05/19/2019 X ray : Foot, left 3V 06/16/2019 X ray : Foot, left 3V 08/03/2019 Insurance Providers Payer Name Payer Address Payer Phone Subscriber Number Group Number Insured Name Patient Relationship to Insured Coverage Start Date Coverage End Date [facility] 65 Medicare Preferred [address] [place] [address] [id number] Haleigh Miranda Self - patient is the insured Medical (General) History Medical History History ICD Code Arthritis Heart disease Measles Mumps Chicken pox CAD Back,Hip,and Knee pain Broken bones Joint implants/screws Bone implants/screws Surgical History Surgery Date(Month/Year) basal carcinoma 2008 shoulder surgery 04/2011 knee replacement 2021 carpal tunnel surgery 09/2024
== END 2025-07-15 16:25 | disposition home or self-care (01) ==
LOC: HO.HMCC 12:38
PROVIDERS: PCP Internal Medicine; Visit Provider Internal Medicine
DX: I10 Essential (primary) hypertension (principal); R20.2 Paresthesia of skin; I50.20 Unspecified systolic (congestive) heart failure; G47.9 Sleep disorder, unspecified; M19.041 Primary osteoarthritis, right hand; M19.042 Primary osteoarthritis, left hand; I25.10 Atherosclerotic heart disease of native coronary artery without angina pectoris; K21.9 Gastro-esophageal reflux disease without esophagitis; M85.80 Other specified disorders of bone density and structure, unspecified site; F41.1 Generalized anxiety disorder; I35.0 Nonrheumatic aortic (valve) stenosis; M25.50 Pain in unspecified joint

== ENCOUNTER → 2025-07-15 12:38 | Outpatient (BNVA) | payer MEDICARE, SELFPAY | PROVIDERS: PCP Internal Medicine; Visit Provider Internal Medicine | DX: I13.0 Hypertensive heart and chronic kidney disease with heart failure and stage 1 through stage 4 chronic kidney disease, or unspecified chronic kidney disease (principal); I50.20 Unspecified systolic (congestive) heart failure; N81.4 Uterovaginal prolapse, unspecified; R20.2 Paresthesia of skin; I25.10 Atherosclerotic heart disease of native coronary artery without angina pectoris; I35.0 Nonrheumatic aortic (valve) stenosis; M85.80 Other specified disorders of bone density and structure, unspecified site; K21.9 Gastro-esophageal reflux disease without esophagitis; G47.9 Sleep disorder, unspecified; M19.041 Primary osteoarthritis, right hand; M19.042 Primary osteoarthritis, left hand; F41.1 Generalized anxiety disorder; M25.50 Pain in unspecified joint | CPT/HCPCS: 96127; 99212 ==

== ENCOUNTER 2025-09-14 09:23 | Outpatient (AMB) | payer MEDICARE, SELFPAY ==
--- OUTSIDE RECORDS SUMMARY | 2025-04-29 04:00 | XMS_ITS ---
Author Organization [facility] Address [address] [place] [address] Care Team Providers Care Research Physician Name Role Phone Ajith PAINTER, [facility] Primary Care Provider Allison Gutiérrez Unavailable [phone] Allergies Allergen (clinical drug ingredient) Drug/Non Drug Allergy documented on EMR Reaction Allergy Type Onset Date Status Pollen Pollen Unknown Allergy Active Shellfish (FN) Shellfish-derived Products trouble breathing Drug Allergy Active Substance with sulfonamide structure and antibacterial mechanism of action (substance) Sulfa Antibiotics flu symptoms Drug Allergy Active Medications Medication SIG (Take, Route, Frequency, Duration) Notes Start Date End Date Status Atorvastatin Calcium 80 MG Orally Active Alendronate Sodium 70 MG 1 tablet Orally once a week Active Losartan Potassium 100 MG Orally Active Carvedilol 25 MG Orally BID Ac tive Furosemide 20 MG Orally Act celia amLODIPine Besylate 5 MG 1 tablet Orally Once a day Active Omeprazole 20 MG 2 capsules Orally On ce a day Active Aspirin 81 MG Orally Active Meloxicam 15 MG Orally Acti ve Encounters Encounter Location Date Provider Diagnosis [facility] [address] [place] [address] 04/29/2025 Allison Jeff Plan Of Treatment No Information Progress Notes * ANGELA, Gail LDOB: 9 (75 yo F)Acc No.[id number]:04/29/2025 Progress Note Patient: Haleigh MCKENZIE Provider: Taylor Jeff DPM :1950 A ge:75 Y S ex:Female Date:04/29/2025 Address:[address] [place] [address] [place], [id number] Pcp:Leslie Canseco MD Subjective: * Chief Complaints: * * Medical History: A rthritis, Heart disease, Measles, Mumps, Chicken pox, CAD, Back,Hip,and Knee pain, Broken bones, Joint implants/screws, Bone implants/screws. * Medications: T aking Alendronate Sodium 70 MG Tablet 1 tablet Orally once a week , Taking Omeprazole 20 MG Capsule Delayed Release 2 capsules Orally Once a day , Taking amLODIPine Besylate 5 MG Tablet 1 tablet Orally Once a day , Taking Meloxicam 15 MG Tablet Orally , Taking Aspirin 81 MG Tablet Delayed Release Orally , Taking Carvedilol 25 MG Tablet Orally BID , Taking Losartan Potassium 100 MG Tablet Orally , Taking Furosemide 20 MG Tablet Orally , Taking Atorvastatin Calcium 80 MG Tablet Orally * Allergies: S ulfa Antibiotics: flu symptoms, Shellfish-derived Products: trouble breathing, Pollen. Objective: * Vitals: Assessment: Plan: * Treatment: * Images: * The named appointment provid er may or may not be the originator of this progress note, and it is not deemed complete until electronically signed by the appointment provider. Sign off status: Pending * Provider: Taylor Jeff DPM Date: 0 04/29/2025 Generated for Arelis martinez/Jeanne/Fransisca on: 11/14/2024 10:25 AM EST
[2025-09-14 09:24] VITALS: BP 130/76; PULSE 70; O2SAT 97; BMI 24.3
--- NOTE | 2025-09-14 09:24 | AM.OFFWIN_ITS ---
Intake Vital Signs 09/14/25 09:24 Height 5 ft 3 in Weight 137 lb BMI 24.3 BP 130/76 Blood Pressure Location Lt brachial Position Sitting Pulse 70 Pulse Source Pulse Oximeter Pulse Oximetry (%) 97 Oxygen Delivery Method Room Air Intake Visit Reasons: EP Right wrist swelling/ left knee pain Intake Note: Patient presents c/o right wrist swelling/pain/bruising & left knee soreness, both related to tripping over her dog at home about 1 week ago. Left knee is a replacement. Patient Tobacco Use Status: Former Tobacco user Allergies shellfish derived (SHELLFISH DERIVED) Allergy (Intermediate, Verified 09/14/25 09:29) THROAT CLOSING Sulfa (Sulfonamide Antibiotics) (SULFA (SULFONAMIDE ANTIBIOTICS)) Allergy (Mild, Verified 09/14/25 09:29) FLU LIKE SYMPTOMS HPI HPI Comments History of Present Illness Details Patient is a 75yo F who presents to office with R wrist and L knee pain SHe states 1 week ago she had mechanical fall over her dog She fell into a door frame with R hand and L knee No HT or LOC + bruising to R arm since Has been using tylenol, ice with some relief She is R hand dominant; also has L knee replacement Denies knee currently givign out on her Pain with worse with ambulation and R arm movement No numbness, tingling or weakness No other concerns PFSH Medical History Heart failure with reduced ejection fraction CAD (coronary artery disease) HTN (hypertension) Congestive heart failure CHD (congenital heart disease) Eczema Surgical History Status post creation of urethral sling by suprapubic approach Basal cell carcinoma Shoulder arthritis H/O cardiac catheterization Social History Housing: House Alcohol intake: current Alcohol intake frequency: holidays/special occasions only Alcohol type: hard liquor Patient Tobacco Use Status: Former Tobacco user e-Cigarette/Vaping Use: Never Used service: No Current occupational status: retired Cognitive needs: No Hearing needs: No Vision needs: Yes (contacts) Review of Systems Const Denies chills and Denies fever(s) Eyes Denies change in vision ENT Denies dizziness Card Denies syncope and Denies dyspnea Resp Denies dyspnea Musc Reports arthralgias (R wrist and L knee), Denies numbness and Denies tingling Skin/Breast Reports change in pigmentation (bruising RUE) Neuro Denies confusion, Denies dizziness, Denies syncope, Denies numbness and Denies tingling Psych Denies confusion Physical Exam Exam Exam: General: Non-toxic, NAD. Speaking full sentences. Skin: Warm dry throughout. + slight green/yellow skin color changes to palmar aspect R forearm along radial aspect near mid forearm. No lacerations or abrasions No obvious L knee edema, erythema, ecchymosis or warmth Lower extremities equal in size and shape Cardiac: LLE DP pulse intact. Cap refill wnl. 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 + supination and pronation R forearm. No ttp cervical spine midline, R clavicle, shoulder or elbow. No RUE snuffbox ttp. + ttp radial aspect R distal forearm. No ulnar ttp. + full flexion/extension LLE at knee. No bony ttp L knee or joint spaces. Full ROM remainder of extremities. Neurology: Alert. No aphasia or facial droop. Gait without abnormality Psych: Good mood and affect Vital Signs: Last Vital Signs Pulse 70 09/14/25 09:24 BP 130/76 09/14/25 09:24 Pulse Ox 97 09/14/25 09:24 Oxygen Delivery Method Room Air 09/14/25 09:24 BMI result Body Mass Index 24.3 Const General: No confusion Orientation/consciousness: No confusion Neuro General: No confusion Assessment & Plan Assessment & Plan (1) Contusion of arm, right: Code(s): S40.021A - Contusion of right upper arm, initial encounter Qualifiers: Encounter type: initial encounter Qualified Code(s): S40.021A - Contusion of right upper arm, initial encounter Plan: Patient seen and evaluated. XRay R forearm: + Radius fracture Discussed no driving with injury Patient gave verbal understanding and had no additional questions or concerns at time of discharge All questions answered (2) Knee pain, left: Code(s): M25.562 - Pain in left knee Qualifiers: Chronicity: acute Qualified Code(s): M25.562 - Pain in left knee Plan: Xray L knee: No fx or dislocation. Hardware seems inplace without fx (3) Radius fracture: Code(s): S52.90XA - Unspecified fracture of unspecified forearm, initial encounter for closed fracture Qualifiers: Encounter type: initial encounter Fracture morphology: other fracture Fracture type: closed Laterality: right Radius location: distal Qualified Code(s): S52.591A - Other fractures of lower end of right radius, initial encounter for closed fracture Plan: + radius fracture Placed in velcro thumb spica splint as fx 1 week out and pt states she would not tolerate orthoglass splint well Ortho follow up Elevation Ice Discussed splint wear Ortho follow up All questions answered. Refused additional pain meds Orders: Orders XR forearm RT 2V Today S40.021A - Contusion of right upper arm, initial encount er XR wrist RT min 3V Today S40.021A - Contusion of right upper arm, initial encounter Referrals Orthopedics Referral S52.591A - Other fractures of lower end of right radius, initial encounter for closed fracture Coding Level of Care Code Est Pt Level 3 (07210) Diagnoses Contusion of right upper extremity, initial encounter S40.021A Encounter type: initial encounter Acute pain of left knee M25.562 Chronicity: acute Other closed fracture of distal end of right radius, initial encounter S52.591A Encounter type: initial encounter Fracture morphology: other fracture Fracture type: closed Laterality: right Radius location: distal
--- OUTSIDE RECORDS SUMMARY | 2025-09-14 10:25 | XMS_ITS | Patient Health Record ---
Author Organization [facility] Address [address] [place] [address] Care Team Providers Care Mailroom Coordinator Name Role Phone Jeffery Littlejohn MD Primary Care Provider Jose Marlow Jr Unavailable [phone] Allergies Allergen (clinical drug ingredient) Drug/Non Drug Allergy documented on EMR Reaction Allergy Type Onset Date Status Shellfish shellfish (uncoded) Unknown Allergy Active Sulfa Unknown Drug Allergy Active Reason For Referral No Information Medications Medication SIG (Take, Route, Frequency, Duration) Notes Start Date End Date Status Lorazepam prn Active Social History Social History Additional Details Category Social Info Options Details Miscellaneous: Marital status: Occupation: retired Problems Problem Type SNOMED Code ICD Code Onset Dates Problem Status W/U Status Risk Notes Problem Dysphagia (35259634) Dysphagia, unspecified type (R13.10) Active confirmed Plan Of Treatment Future Test Test Name Order Date UPPER GI ENDOSCOPY BALLOOON DILATION OF ESOPH 09/05/2016 Insurance Providers Payer Name Payer Address Payer Phone Subscriber Number Group Number Insured Name Patient Relationship to Insured Coverage Start Date Coverage End Date [facility] [address] [place], [place] [phone] [id number] WILMER MILLER Self - patient is the insured Medical (General) History Medical History History ICD Code Denies [place],DM,CVA,Lung disease,renal dise ase eczema Surgical History Surgery Date(Month/Year) shoulder surgery reconstructed 2009
--- OUTSIDE RECORDS SUMMARY | 2025-09-14 10:25 | XMS_ITS | Patient Health Record ---
Author Organization [facility] Mccormack Address [address] [place] [address] Care Team Providers Care Dish Technician Name Role Phone Ajith PAINTER, Asma Primary Care Provider Allison Gutiérrez Unavailable [phone] Allergies Allergen (clinical drug ingredient) Drug/Non Drug [...] primary osteoarthritis of the ankle and/or foot (065436935) Primary osteoarthritis, right ankle and foot (M19.071) Active confirmed Problem Pain due to varicose veins of lower extremity (057347147) Symptomatic varicose veins of both lower extremities (I83.893) Active confirmed Vital Signs Blood pressure diastolic 70 mm Hg 05/03/2025 Height 5ft 2in in 05/03/2025 Blood pressure systolic 126 mm Hg 05/03/2025 Weight 135 lbs 05/03/2025 BMI 24.69 kg/m2 05/03/2025 Encounters [facility] Date [facility] [address] [facility] Allison Perica Pain in right toe(s) M79.674 ; Onychomycosis B35.1 ; Pain in left toe(s) M79.675 and Symptomatic varicose veins of both lower extremities I83.[address] [address] 05/03/2025 Allison Perica Pain in right toe(s) M79.674 ; Onychomycosis B35.1 ; Pain in left toe(s) M79.675 and Symptomatic varicose veins of both lower extremities I83.893 [facility] [address] [address] 04/29/2025 Allison Perica Assessments Encounter Date Diagnosis [...] Insured Coverage Start Date Coverage End Date [facility] 65 Medicare Preferred [address] [place] [address] [id number] Haleigh Miranda Self - patient is the insured Medical (General) History Medical History History ICD Code Arthritis Heart disease Measles Mumps Chicken pox CAD Back,Hip,and Knee pain Broken bones Joint implants/screws Bone implants/screws Surgical History Surgery Date(Month/Year) basal carcinoma 2008 shoulder surgery 04/2011 knee replacement 2021 carpal tunnel surgery 09/2024
== END 2025-09-14 10:27 | disposition home or self-care (01) ==
PROVIDERS: PCP Internal Medicine; Visit Provider Physician Assistant
DX: S40.021A Contusion of right upper arm, initial encounter (principal); M25.562 Pain in left knee; S52.591A Other fractures of lower end of right radius, initial encounter for closed fracture

== ENCOUNTER 2025-09-14 09:23 | Outpatient (REF) | payer MEDICARE, SELFPAY ==
--- NOTE | ~2025-09-14 | XR_ITS ---
EXAMINATION: X-ray right wrist X-ray right forearm CLINICAL INFORMATION: Contusion COMPARISON: None TECHNIQUE: Forearm 2 views. Wrist 3 views. FINDINGS: Wrist: Comminuted intra-articular fracture of the distal radial epiphysis and metaphysis, with mild displacement and impaction. Radiocarpal alignment is maintained. Multifocal arthritis including severe first CMC arthritis, first and second MCP and first IP joint arthritis. Degeneration in the distal ulna, without discrete fracture seen. Soft tissue swelling of the wrist. Labrum: Distal radial fracture as detailed above. No additional fractures identified. Elbow joint articulation is maintained. No abnormal soft tissue calcification. XR/XR wrist RT min 3V IMPRESSION: Comminuted intra-articular fracture of the distal radial epiphysis and metaphysis, with mild displacement and impaction. Multifocal arthritis as above. Electronically signed by: Jez Torres MD 09/14/2025 10:50 AM [facility]
--- NOTE | ~2025-09-14 | XR_ITS ---
EXAMINATION: XR KNEE, LEFT CLINICAL INFORMATION: M25.562 - Pain in left knee COMPARISON: 11/09/2020. TECHNIQUE: Four views of the left knee. FINDINGS: There has been a total left knee arthroplasty, with associated patellar resurfacing. Tibial, femoral components appear intact, well seated, in anatomic alignment. No periprosthetic lucency, fracture, or other abnormality. No evidence of bone lesion. There is a moderate suprapatellar joint effusion. There are diffuse vascular calcifications in the soft tissues. XR/XR knee LT 4V IMPRESSION: 1. Total left knee arthroplasty without definite complication. 2. Moderate sized suprapatellar joint effusion. Electronically signed by: Nelson West MD 09/14/2025 10:48 AM AMADOR
--- NOTE | ~2025-09-14 | XR_ITS ---
EXAMINATION: X-ray right wrist X-ray right forearm CLINICAL INFORMATION: Contusion COMPARISON: None TECHNIQUE: Forearm 2 views. Wrist 3 views. FINDINGS: Wrist: Comminuted intra-articular fracture of the distal radial epiphysis and metaphysis, with mild displacement and impaction. Radiocarpal alignment is maintained. Multifocal arthritis including severe first CMC arthritis, first and second MCP and first IP joint arthritis. Degeneration in the distal ulna, without discrete fracture seen. Soft tissue swelling of the wrist. Labrum: Distal radial fracture as detailed above. No additional fractures identified. Elbow joint articulation is maintained. No abnormal soft tissue calcification. XR/XR forearm RT 2V IMPRESSION: Comminuted intra-articular fracture of the distal radial epiphysis and metaphysis, with mild displacement and impaction. Multifocal arthritis as above. Electronically signed by: Jez Torres MD 09/14/2025 10:50 AM [facility]
== END 2025-09-14 09:24 | disposition home or self-care (01) ==
LOC: HO.HMGCX 09:23
PROVIDERS: PCP Internal Medicine; Visit Provider Physician Assistant
DX: S52.591A Other fractures of lower end of right radius, initial encounter for closed fracture (principal); S40.021A Contusion of right upper arm, initial encounter; M25.562 Pain in left knee; Z96.652 Presence of left artificial knee joint; W19.XXXA Unspecified fall, initial encounter
CPT/HCPCS: 73090; 73110; 73564; 99212

== ENCOUNTER → 2025-09-14 09:55 | Outpatient (BNV) | payer MEDICARE, SELFPAY | PROVIDERS: PCP Internal Medicine; Visit Provider Radiology Diagnostic Ultrasound | DX: M25.462 Effusion, left knee (principal); Z96.652 Presence of left artificial knee joint; S52.571A Other intraarticular fracture of lower end of right radius, initial encounter for closed fracture | CPT/HCPCS: 73090; 73110; 73564 ==

== ENCOUNTER 2025-09-20 10:48 | Outpatient (REF) | payer MEDICARE, SELFPAY ==
--- OUTSIDE RECORDS SUMMARY | 2025-09-18 23:59 | XMS_ITS | Continuity of Care Document ---
Author Organization [facility] Address [address] [place] [address], [address] [address]- Care Team Providers Care Dinkey Engine Mechanic Name Role Phone Ajith [facility]INTER, [facility] Primary [facility] Physician Encounter [facility] Date(s): 08/19/25 - 09/18/25 [facility] [address] [place] [address], [address] [place] [id number] Attending Physician: Cecilia Calderon Admitting Physician: Cecilia [...] 3000 mg/day, Refills 0, Maintenance, 01/17/22 8:22:00 AM EDT, Partial fill upon patient request if the prescription is for a schedule II opioid drug. Start Date: 01/17/22 Status: Ordered Medication Dispense Status: Completed Total Allowed Fills: 1 Fills Dispensed: 0 amLODIPine 5 mg oral tablet 5 mg, 1, tablet, By Mouth, Daily, # 30 tablet, Refills 0, Maintenance, 09/24/19 8:37:24 AM EST Start Date: 09/24/19 Status: Ordered Medication Dispense Status: Completed Quantity: 30.0 Unit: tablet Total Allowed Fills: 1 Fills Dispensed: 0 Coreg 25 mg oral tablet 25 mg, 1, tablet, By Mouth, 2 times a day, # 180 tablet, Refills 0, Maintenance, 07/26/19 8:58:10 AMEDT Start Date: 07/26/19 Status: Ordered Medication Dispense Status: Completed Quantity: 180.0 Unit: tablet Total Allowed Fills: 1 Fills Dispensed: 0 Ecotrin 325 mg oral delayed release tablet 1 tablet = 325 mg, By Mouth, 2 times a day, # 60 tablet, 0 Refills, Maintenance, 01/17/22 8:15:00 AMEDT, EC Tablet, [facility], Partial fill upon patient request if the prescription is for a schedule II opioid drug., 160, cm, 01/17/22 6:38:00 EDT, Height, 67.2, kg, 01/16/22 6:11:00 EDT, Dry Weight Start Date: 01/17/22 Stop Date: 02/16/22 Status: Ordered Medication Dispense Status: Completed Quantity: 60.0 Unit: tablet Total Allowed Fills: 1 Fills Dispensed: 0 furosemide 20 mg oral tablet 20 mg, By Mouth, Daily, # 30 tablet, Refills 0, Tot. Refills 0, Maintenance, 09/03/17 12:21:15 PM EST, Route to Pharmacy Electronically, [facility] Start Date: 09/03/17 Stop Date: 10/03/17 Status: Ordered Medication Dispense Status: Completed Quantity: 30.0 Unit: tablet Total Allowed Fills: 1 Fills Dispensed: 0 ibuprofen 800 mg oral tablet 800 mg, 1, tablet, By Mouth, Every 8 hours, # 90 tablet, Refills 0, Tot. Refills 0, Maintenance, 09/05/25 1:48:00 PM EST, Route to Pharmacy Electronically, [facility]/pharmacy #[id number], Partial fill upon patient request if the prescription is for a schedule II opioid drug., 160.02, cm, 08/19/25 9:16:00 EDT, Height, 62.3, kg, 09/05/25 10:04:00 EST, Dry Weight Start Date: 09/05/25 Status: Ordered Medication Dispense Status: Completed Quantity: 90.0 Unit: tablet Total Allowed Fills: 1 Fills Dispensed: 0 Lipitor 80 mg oral tablet = 80 mg, By Mouth, Daily at bedtime, # 30 tablet, 0 Refills, Maintenance, Tablet, Route to PharmacyElectronically, [id number], [facility] Start Date: 09/03/17 Stop Date: 10/03/17 Status: Ordered Medication Dispense Status: Completed Quantity: 30.0 Unit: tablet Total Allowed Fills: 1 Fills Dispensed: 0 LORazepam 0.5 mg oral tablet 0.5 tablet = 0.25 mg, By Mouth, 2 times a day, 0 Refills, Maintenance, 01/16/24 9:33:00 AM EDT, Tablet, Partial fill upon patient request if the prescription is for a schedule II opioid drug. Start Date: 01/16/24 Status: Ordered Medication Dispense Status: Completed Total Allowed Fills: 1 Fills Dispensed: 0 losartan 100 mg oral tablet 1 tablet = 100 mg, By Mouth, Daily, # 30 tablet, 0 Refills, Maintenance, 10/07/18 8:53:09 AM EST, Tablet Start Date: 10/07/18 Status: Ordered Medication Dispense Status: Completed Quantity: 30.0 Unit: tablet Total Allowed Fills: 1 Fills Dispensed: 0 meloxicam 15 mg oral tablet 1 tablet = 15 mg, By Mouth, Daily, # 30 tablet, 0 Refills, Maintenance, 01/17/22 8:16:00 AM EDT, Tablet, [facility], Partial fill upon patient request if the prescription is for a schedule II opioid drug., 160, cm, 01/17/22 6:38:00 EDT, Height, 67.2, kg, 01/16/22 6:11:00 EDT, Dry Weight Start Date: 01/17/22 Status: Ordered Medication Dispense Status: Completed Quantity: 30.0 Unit: tablet Total Allowed Fills: 1 Fills Dispensed: 0 MiraLax oral powder for reconstitution = 17 Gm, By Mouth, Daily, dissolve in water before taking, # 255 Gm, 0 Refills, Maintenance, 09/05/25 1:48:00 PM EST, REC Powder, [facility]/pharmacy #[id number], Partial fill upon patient request if the prescription is for a schedule II opioid drug., 17 Gm By Mouth Daily,Instr:dissolve in water before taking, 160.02, cm, 08/19/25 9:16:00 EDT, Height, 62.3, kg, 09/05/25 10:04:00 EST, Dry Weight Start Date: 09/05/25 Status: Ordered Medication Dispense Status: Completed Quantity: 255.0 Unit: g Total Allowed Fills: 1 Fills Dispensed: 0 oxyCODONE 5 mg oral capsule 1 capsule = 5 mg, By Mouth, Every 6 hours, PRN as needed for pain, # 5 capsule, 0 Refills, Maintenance, 09/05/25 1:48:00 PM EST, Capsule, [facility]/pharmacy #[id number], Partial fill upon patient request if the prescription is for a schedule II opioid drug., 160.02, cm, 08/19/25 9:16:00 EDT, Height, 62.3, kg, 09/05/25 10:04:00 EST, Dry Weight Start Date: 09/05/25 Status: Ordered Medication Dispense Status: Completed Quantity: 5.0 Unit: capsule Total Allowed Fills: 1 Fills Dispensed: 0 pantoprazole 40 mg oral delayed release tablet 1 tablet = 40 mg, By Mouth, Daily, # 30 tablet, 0 Refills, Maintenance, 12/28/21 9:10:00 AM EST, EC Tablet Start Date: 12/28/21 Status: Ordered Medication Dispense Status: Completed Quantity: 30.0 Unit: tablet Total Allowed Fills: 1 Fills Dispensed: 0 Tylenol 325 mg oral tablet 975 mg, 3, tablet, By Mouth, Every 6 hours, PRN, # 50 tablet, Refills 0, Tot. Refills 0, Maintenance, for pain, 09/05/25 1:48:00 PM EST, Route to Pharmacy Electronically, [facility]/pharmacy #[id number], Partial fill upon patient request if the prescription is for a schedule II opioid drug., 160.02, cm, 08/19/25 9:16:00 EDT, Height, 62.3, kg, 09/05/25 10:04:00 EST, Dry Weight Start Date: 09/05/25 Status: Ordered Medication Dispense Status: Completed Quantity: 50.0 Unit: tablet Total Allowed Fills: 1 Fills Dispensed: 0 Problem List Condition Confirmation Course Effective Dates [...] Active Social History Social History Type Response Sexual Sexually involved in last 6 months: No. Smoking Status Former smoker, quit more than 30 days ago entered on: 10/19/18 Sex Sex Representation Female (finding) Patient Care team information Care Team Personnel Name: Nolan Walls CRNA Position: [facility] SN RN Member Role: Primary Care Nurse Address: [address] [place] [address] Department Of Anesthesiology [address] Telecom: Name: Leslie Canseco MD Position: Reference Physician Member Role: PCP Address: [facility] [place] [address] Telecom: Care Team Related Persons Name: PEYTON MILLER Insurance Providers Guarantor name: PEYTON MILLER Health Plan Information #: 1 Payer: [employer] [facility] PPO Payer Identifier: NA Member Number: [id number] Group Number: [id number] Subscriber Identifier: NA Relationship to Subscriber: self Coverage Type: Medicare PPO Coverage Verification Date: NA Telecom: NA Address:
--- NOTE | ~2025-09-20 | XR_ITS ---
EXAMINATION: XR WRIST 3 OR MORE VIEWS RIGHT HISTORY: M25.531 - Pain in right wrist COMPARISON: Comparison is made with the prior examination dated 09/14/2025. FINDINGS: Three views of the right wrist are submitted. Osseous mineralization is normal. Again seen is a comminuted intra-articular fracture of the distal radius. The fracture line remains visible. Again seen is severe osteoarthritis of the 1st carpometacarpal joint as well as the MCP joints of the thumb and index fingers. The soft tissues are unremarkable. XR/XR wrist RT min 3V IMPRESSION: Comminuted intra-articular fracture of the distal radius without significant change. Electronically signed by: Flo Aguirre MD 09/20/2025 11:47 AM AMADOR
== END 2025-09-20 10:49 | disposition home or self-care (01) ==
LOC: HO.HOSX 10:48
PROVIDERS: PCP Internal Medicine; Visit Provider Orthopaedic Surgery
DX: S52.571D Other intraarticular fracture of lower end of right radius, subsequent encounter for closed fracture with routine healing (principal); I25.10 Atherosclerotic heart disease of native coronary artery without angina pectoris; I11.0 Hypertensive heart disease with heart failure; I50.20 Unspecified systolic (congestive) heart failure; W18.40XD Slipping, tripping and stumbling without falling, unspecified, subsequent encounter
CPT/HCPCS: 25600; 73110; 99212

== ENCOUNTER 2025-09-20 10:48 | Outpatient (AMB) | payer MEDICARE, SELFPAY ==
[2025-09-20 11:41] VITALS: BMI 24.3
--- NOTE | 2025-09-20 11:41 | MHC.OFFVIS ---
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 Seen at urgent care at [facility] where xrays were taken and was confirmed a radius fracture. States she was given a thumb spica brace to wear. Today patient states she has 5/5 on pain scale. Hx of vaginal hysterectomy 09/05/25, & bilateral CTR 2023 with [facility]. Allergies shellfish derived (SHELLFISH DERIVED) Allergy (Intermediate, Verified 09/20/25 11:46) THROAT CLOSING Sulfa (Sulfonamide Antibiotics) (SULFA (SULFONAMIDE ANTIBIOTICS)) Allergy (Mild, Verified 09/20/25 11:46) FLU LIKE SYMPTOMS HPI HPI FC- Other FC of lower end of RT radius: Details: Haleigh is a 75 year old right hand dominant woman who presents for a right distal radius fracture, S/P fall, DOI: ~09/06/25. She was splinted at a walk-in clinic. She complains of some pain in her wrist, worse with any motion. She says she has been removing her splint at times at home as she has stuff to do . She says she had a vaginal hysterectomy on 09/05/25, and she tripped over her dog on ~09/06/25 She says she has arthritis & carpal tunnel syndrome, which limits her ROM. She has a Hx of bilateral carpal tunnel release done in 2023 at [facility] Medical History Heart failure with reduced ejection fraction CAD (coronary artery disease) HTN (hypertension) Congestive heart failure CHD (congenital heart disease) Eczema Surgical History Status post creation of urethral sling by suprapubic approach Basal cell carcinoma Shoulder arthritis H/O cardiac catheterization Social History Housing: House Alcohol intake: current Alcohol intake frequency: holidays/special occasions only Alcohol type: hard liquor Patient Tobacco Use Status: Former Tobacco user e-Cigarette/Vaping Use: Never Used service: No Current occupational status: retired Cognitive needs: No Hearing needs: No Vision needs: Yes (contacts) Review of Systems Const All systems reviewed & are unremarkable except as noted in HPI and below Physical Exam Vital Signs: BMI result Body Mass Index 24.3 Const General: cooperative, healthy appearing and no acute distress Orientation/consciousness: patient oriented x3 HEENT Head: Yes normocephalic and Yes atraumatic Eyes EOM: EOMs intact bilaterally Resp Effort & Inspection: normal respiratory effort and able to speak in complete sentences Cardio Jugular venous distension: no JVD Skin General skin exam: turgor normal Rashes: no rashes Neuro General: patient oriented x3 Extrem Other: Evaluation of Right Upper Extremity: The patient is alert, oriented, and in no acute distress Neuro: Median, Ulnar, Radial nerves motor and sensory intact and sensation is normal to the tips of all digits Vascular: Cap refill brisk Skin: No lacerations or abrasions. General: Resolving Ecchymosis only mild swelling. No Erythema or evidence of infection. Mild tenderness at the fracture site Arthritic changes in her fingers Somewhat limited finger flexion, comparable to contralateral side Radiographs: 3 views of the right wrist were taken and viewed by me today in clinic. They show a distal radius fracture with an intra-articular split at the scapholunate interval with some mild shortening and compression at the fracture site. Psych Appearance: grossly normal Affect: normal affect Attitude: cooperative Office Procedures AMB Fracture Care Details: Fracture care distal radius fracture 40545 Fracture Billing Code: Fracture Billing Code Assessment & Plan Assessment & Plan (1) Fracture of right distal radius: Code(s): S52.501A - Unspecified fracture of the lower end of right radius, initial encounter for closed fracture Category: Medical (2) Heart failure with recovered ejection fraction (HFrecEF): Code(s): I50.20 - Unspecified systolic (congestive) heart failure Category: Medical (3) CAD (coronary artery disease): Code(s): I25.10 - Atherosclerotic heart disease of [place] coronary artery without angina pectoris Category: Medical Qualifiers: Associated angina: without angina Coronary Disease-Associated Artery/Lesion type: [place] artery [place] vs. transplanted heart: [place] heart Qualified Code(s): I25.10 - Atherosclerotic heart disease of [place] coronary artery without angina pectoris Plan Assessment & Plan: 1. Right distal radius fracture From a fall, DOI: 09/06/25 I educated her about this condition I discussed operative and non-operative treatment options We will manage this conservatively in a cast, and she is in agreement She was placed in a short arm cast, to be worn for the next 2 weeks I discussed activity modifications, she is to lift nothing heavier than a cellphone for the next 4 weeks. They should also avoid any heavy impact activities, falls, or sports activities for the next 6 weeks She will perform gentle ROM exercises at home in her cast She will follow up in 2 weeks, with X-rays, 3V R wrist, OOP. Anticipate placement in velcro splint depending on bony healing Scribed for Renee Krishnamurthy MD by Tom Strickland, medical insurance biller, on 09/20/25 at 11:55 AM, EST. Orders: Orders XR wrist RT min 3V Today M25.531 - Pain in right wrist Coding Level of Care Code New Pt Level 4 (20577) Diagnoses Fracture of right distal radius S52.501A Heart failure with recovered ejection fraction (HFrecEF) I50.20 Coronary artery disease involving [place] coronary artery of [place] heart without angina pectoris I25.10 Associated angina: without angina Coronary Disease-Associated Artery/Lesion type: [place] artery [place] vs. transplanted heart: [place] heart CPT Codes Fracture Care - Fracture Billing Code: Fracture Billing Code ([id number])
== END 2025-09-20 13:18 | disposition home or self-care (01) ==
LOC: HO.HOS 10:49
PROVIDERS: PCP Internal Medicine; Visit Provider Orthopaedic Surgery
DX: S52.501A Unspecified fracture of the lower end of right radius, initial encounter for closed fracture (principal); I50.20 Unspecified systolic (congestive) heart failure; I25.10 Atherosclerotic heart disease of native coronary artery without angina pectoris
CPT/HCPCS: 25600; 99214

== ENCOUNTER → 2025-09-20 11:32 | Outpatient (BNV) | payer MEDICARE, SELFPAY | PROVIDERS: PCP Internal Medicine; Visit Provider Radiology Diagnostic Radiology | DX: S52.571A Other intraarticular fracture of lower end of right radius, initial encounter for closed fracture (principal) | CPT/HCPCS: 73110 ==

== ENCOUNTER 2025-10-04 11:46 | Outpatient (REF) | payer MEDICARE, SELFPAY ==
--- OUTSIDE RECORDS SUMMARY | 2025-04-29 04:00 | XMS_ITS ---
Author Organization [facility] Address [address] [place] [address] Care Team Providers Care Creative Arts Music Therapist Name Role Phone Ajith PAINTER, [facility] Primary Care Provider Allison Gutiérrez Unavailable [phone] Allergies Allergen (clinical drug ingredient) Drug/Non Drug [...] ve Encounters Encounter Location Date Provider Diagnosis [facility] [address] [place] [address] 04/29/2025 Allison Jeff Plan Of Treatment No Information Progress Notes * ANGELA, Gail LDOB: [birth year] (75 yo F)Acc No.[id number]:04/29/2025 Progress Note Patient: Haleigh MCKENZIE Provider: Taylor Jeff DPM :1950 A ge:75 Y S ex:Female Date:04/29/2025 Address:[address] [place] [address] [place], [id number] Pcp:Leslie Canseco MD Subjective: * Chief Complaints: [...] 0 04/29/2025 Generated for Arelis martinez/Jeanne/Fransisca on: 12/07/2024 03:36 PM EST
--- NOTE | ~2025-10-04 | XR_ITS ---
EXAMINATION: XR WRIST, RIGHT CLINICAL INFORMATION: M25.531 - Pain in right wrist COMPARISON: None available. TECHNIQUE: PA, lateral, and oblique views of the right wrist. FINDINGS: Redemonstrated is comminuted, displaced and impacted intra-articular distal radial fracture, with unchanged positioning and alignment. There is periosteal bone formation seen. No new acute fractures seen. Apparent scapholunate distance prominence, similar to previous. Redemonstrated multifocal arthritis, including severe first CMC, first and second MCP, first IP joint arthritis. XR/XR wrist RT min 3V IMPRESSION: 1. Healing comminuted, intra-articular distal radial fracture, with unchanged positioning and alignment. 2. Multifocal arthritis. Electronically signed by: Jez Torres MD 10/05/2025 01:24 PM AM[facility]OR [facility]ES
--- OUTSIDE RECORDS SUMMARY | 2025-10-06 15:36 | XMS_ITS | Patient Health Record ---
Author Organization [facility] Luda Mccormack Address [address] [place] [address] Care Team Providers Care Pharmaceutical Engineer Name Role Phone Ajith PAINTER, Asma Primary Care Provider Allison Gutiérrez Unavailable [phone] Allergies Allergen (clinical drug ingredient) Drug/Non Drug [...] primary osteoarthritis of the ankle and/or foot ([id number]) Primary osteoarthritis, right ankle and foot (M19.071) Active confirmed Problem Pain due to varicose veins of lower extremity (679369124) Symptomatic varicose veins of both lower extremities (I83.893) Active confirmed Vital Signs Blood pressure diastolic 70 mm Hg 05/03/2025 Height 5ft 2in in 05/03/2025 Blood pressure systolic 126 mm Hg 05/03/2025 Weight 135 lbs 05/03/2025 BMI 24.69 kg/m2 05/03/2025 Encounters Encounter [facility] Date [facility] [address] [facility] Allison Perica Pain in right toe(s) M79.674 ; Onychomycosis B35.1 ; Pain in left toe(s) M79.675 and Symptomatic varicose veins of both lower extremities I83.[address] [address] 05/03/2025 Allison Perica Pain in right toe(s) M79.674 ; Onychomycosis B35.1 ; Pain in left toe(s) M79.675 and Symptomatic varicose veins of both lower extremities I83.893 [facility] [address] [address] 04/29/2025 Allison Perica Assessments Encounter Date Diagnosis [...] Insured Coverage Start Date Coverage End Date [facility] 65 Medicare Preferred [address] [place] [address] [id number] Haleigh Miranda Self - patient is the insured Medical (General) History Medical History History ICD Code Arthritis Heart disease Measles Mumps Chicken pox CAD Back,Hip,and Knee pain Broken bones Joint implants/screws Bone implants/screws Surgical History Surgery Date(Month/Year) basal carcinoma 2008 shoulder surgery 04/2011 knee replacement 2021 carpal tunnel surgery 09/2024
--- OUTSIDE RECORDS SUMMARY | 2025-10-06 15:36 | XMS_ITS | Patient Health Record ---
Author Organization [facility] Address [address] [place] [address] Care Team Providers Care Facility Rehab Director Name Role Phone Jeffery Littlejohn MD Primary [...] Status W/U Status Risk Notes Problem Dysphagia ([id number]) Dysphagia, unspecified type (R13.10) Active confirmed Plan Of Treatment Future Test Test Name Order Date UPPER GI ENDOSCOPY [place] DILATION OF ESOPH 09/05/2016 Insurance Providers Payer Name Payer Address Payer Phone Subscriber Number Group Number Insured Name Patient Relationship to Insured Coverage Start Date Coverage End Date [facility] [address] [place], [place] [id number] [phone] [id number] WILMER MILLER Self - patient is the insured Medical (General) History Medical History History ICD Code Denies [place],DM,CVA,Lung disease,renal dise ase eczema Surgical History Surgery Date(Month/Year) shoulder surgery reconstructed 2009
== END 2025-10-04 11:47 | disposition home or self-care (01) ==
LOC: HO.HOSX 11:46
PROVIDERS: Visit Provider Orthopaedic Surgery
DX: S52.571A Other intraarticular fracture of lower end of right radius, initial encounter for closed fracture (principal); W19.XXXA Unspecified fall, initial encounter; M65.341 Trigger finger, right ring finger; Y93.9 Activity, unspecified; Y92.9 Unspecified place or not applicable; Y99.9 Unspecified external cause status
CPT/HCPCS: 73110; 99212

== ENCOUNTER 2025-10-04 13:27 | Outpatient (AMB) | payer MEDICARE, SELFPAY ==
--- OUTSIDE RECORDS SUMMARY | 2025-04-29 04:00 | XMS_ITS ---
Author Organization [facility] Address [address] [place] [address] Care Team Providers Care Line Staker Name Role Phone Ajith PAINTER, [facility] Primary Care Provider Allison Gutiérrez Unavailable [phone] Allergies Allergen (clinical drug ingredient) Drug/Non Drug [...] ve Encounters Encounter Location Date Provider Diagnosis [facility] [address] [place] [address] 04/29/2025 Allison Jeff Plan Of Treatment No Information Progress Notes * ANGELA, Gail LDOB: 9 (75 yo F)Acc No.[id number]:04/29/2025 Progress Note Patient: Haleigh MCKENZIE Provider: Taylor Jeff DPM :1950 A ge:75 Y S ex:Female Date:04/29/2025 Address:[address] [place] [address] [place], [id number] Pcp:Leslie Canseco MD Subjective: * Chief Complaints: [...] 0 04/29/2025 Generated for Arelis martinez/Jeanne/Fransisca on: 12/05/2024 05:32 PM EST
[2025-10-04 14:08] VITALS: BMI 24.3
--- NOTE | 2025-10-04 14:08 | A.OFFVIS_ITS ---
Vital Signs 10/04/25 14:08 Height 5 ft 3 in Weight 137 lb BMI 24.3 Intake Visit Reasons: OV-FC of lower end of RT radius-w/XR-DOI 09/06/25 Intake Note: Haleigh is a 75 year old female - hand dominant who presents today as a fracture care of lower end of RT radius-w/XR-DOI 09/06/25. At last visit on 09/20/25 we discussed to be placed in a short arm cast and we will revaluate at next visit if we would be placed into a velcro splint depending on bony healing. At today's visit she reports she has had pain especially at night time. States she feels tightness and at times a sharp shooting pain. Xrays updated in office. Allergies shellfish derived (SHELLFISH DERIVED) Allergy (Intermediate, Verified 10/04/25 14:11) THROAT CLOSING Sulfa (Sulfonamide Antibiotics) (SULFA (SULFONAMIDE ANTIBIOTICS)) Allergy (Mild, Verified 10/04/25 14:11) FLU LIKE SYMPTOMS HPI HPI OV-FC of lower end of RT radius-w/XR-DOI 09/06/25: Details: Haleigh is a 75 year old right hand dominant woman who presents for a right distal radius fracture, S/P fall, DOI: ~09/06/25. She was splinted at a walk-in clinic. She complains of some pain in her wrist, worse with any motion. She says her pain is worse at night and she describes her pain as sharp at times. She says she is getting some better feeling in her hand in the last few days, which she is happy about. She has some occasional locking & catching of her ring finger. She says she had a vaginal hysterectomy on 09/05/25, and she tripped over her dog on ~09/06/25 She says she has arthritis & carpal tunnel syndrome, which limits her ROM. She has a Hx of bilateral carpal tunnel release done in 2023 at [facility]. 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 [facility] Medical History Heart failure with reduced ejection fraction CAD (coronary artery disease) HTN (hypertension) Congestive heart failure CHD (congenital heart disease) Eczema Surgical History Status post creation of urethral sling by suprapubic approach Basal cell carcinoma Shoulder arthritis H/O cardiac catheterization Social History Housing: House Alcohol intake: current Alcohol intake frequency: holidays/special occasions only Alcohol type: hard liquor Patient Tobacco Use Status: Former Tobacco user e-Cigarette/Vaping Use: Never Used service: No Current occupational status: retired Cognitive needs: No Hearing needs: No Vision needs: Yes (contacts) Review of Systems Const All systems reviewed & are unremarkable except as noted in HPI and below Physical Exam Vital Signs: BMI result Body Mass Index 24.3 Const General: no acute distress and alert Orientation/consciousness: patient oriented x3 Neuro General: patient oriented x3 Extrem Other: Evaluation of Right Upper Extremity: The patient is alert, oriented, and in no acute distress Neuro: Median, Ulnar, Radial nerves motor and sensory intact and sensation is normal to the tips of all digits Vascular: Cap refill brisk Somewhat limited finger flexion, comparable to contralateral side, secondary to arthritic changes, but she was able to bring her fingers closed to a fist Visible & palpable locking & catching of the ring finger, though not particularly bothersome Tender over the ring finger a1 gilbert ~65 supination ~70 pronation General: Resolved Ecchymosis only mild swelling. No Erythema or evidence of infection. No tenderness at the fracture site Arthritic changes in her fingers Radiographs: 3 views of the right wrist were taken and viewed by me today in clinic. They show a distal radius fracture with an intra-articular split at the scapholunate interval with some mild shortening and compression at the fracture site, unchanged from prior. Psych Appearance: grossly normal Affect: normal affect Attitude: cooperative Assessment & Plan Assessment & Plan (1) Fracture of right distal radius: Code(s): S52.501A - Unspecified fracture of the lower end of right radius, initial encounter for closed fracture Category: Medical (2) Trigger finger, right ring finger: Code(s): M65.341 - Trigger finger, right ring finger Category: Medical Plan Assessment & Plan: 1. Right distal radius fracture From a fall, DOI: 09/06/25 I educated her about this condition This has been managed in a cast She was fitted for a velcro wrist splint, to be worn like a cast except for showering for the next 2 weeks. After 2 weeks she can remove this at home at rest, but continue to wear it when out of the house for the following 2 weeks I discussed activity modifications, she is to lift nothing heavier than a cellphone for the next 2 weeks. 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 She was given a note to remain out of work until her next appointment She will follow up in 4 weeks, with X-rays, 3V R wrist, OOP. 2. Right ring finger trigger finger We can discuss treatment options when her wrist has healed. Scribed for Renee Krishnamurthy MD by Tom Strickland, medical records analyst, on 10/04/25 at 2:[ ] PM, EST. Orders: Orders XR wrist RT min 3V Today M25.531 - Pain in right wrist Coding Level of Care Code Global (94204) Diagnoses Fracture of right distal radius S52.501A Trigger finger, right ring finger M65.341
--- OUTSIDE RECORDS SUMMARY | 2025-10-04 17:32 | XMS_ITS | Patient Health Record ---
Author Organization [facility] Luda Mccormack Address [address] [place] [address] Care Team Providers Care Local Operator Name Role Phone Ajith PAINTER, Asma Primary Care Provider Allison Gutiérrez Unavailable [phone] Allergies Allergen (clinical drug ingredient) Drug/Non Drug [...] primary osteoarthritis of the ankle and/or foot (375081406) Primary osteoarthritis, right ankle and foot (M19.071) Active confirmed Problem Pain due to varicose veins of lower extremity (033769342) Symptomatic varicose veins of both lower extremities (I83.893) Active confirmed Vital Signs Blood pressure diastolic 70 mm Hg 05/03/2025 Height 5ft 2in in 05/03/2025 Blood pressure systolic 126 mm Hg 05/03/2025 Weight 135 lbs 05/03/2025 BMI 24.69 kg/m2 05/03/2025 Encounters Encounter Location Date [facility] [address] [facility] Allison Perica Pain in right toe(s) M79.674 ; Onychomycosis B35.1 ; Pain in left toe(s) M79.675 and Symptomatic varicose veins of both lower extremities I83.[address] [address] 05/03/2025 Allison Perica Pain in right toe(s) M79.674 ; Onychomycosis B35.1 ; Pain in left toe(s) M79.675 and Symptomatic varicose veins of both lower extremities I83.[address] [address] [address] 04/29/2025 Allison Perica Assessments Encounter Date Diagnosis [...] Insured Coverage Start Date Coverage End Date [facility] 65 Medicare Preferred [address] [place] [address] [id number] Haleigh Miranda Self - patient is the insured Medical (General) History Medical History History ICD Code Arthritis Heart disease Measles Mumps Chicken pox CAD Back,Hip,and Knee pain Broken bones Joint implants/screws Bone implants/screws Surgical History Surgery Date(Month/Year) basal carcinoma 2008 shoulder surgery 04/2011 knee replacement 2021 carpal tunnel surgery 09/2024
--- OUTSIDE RECORDS SUMMARY | 2025-10-04 17:32 | XMS_ITS | Patient Health Record ---
Author Organization [facility] Address [address] [place] [address] Care Team Providers Care Bellman Name Role Phone Jeffery Littlejohn MD Primary [...] Status W/U Status Risk Notes Problem Dysphagia ([id number]) Dysphagia, unspecified type (R13.10) Active confirmed Plan Of Treatment Future Test Test Name Order Date UPPER GI ENDOSCOPY [place] DILATION OF ESOPH 09/05/2016 Insurance Providers Payer Name Payer Address Payer Phone Subscriber Number Group Number Insured Name Patient Relationship to Insured Coverage Start Date Coverage End Date [facility] [address] [place], [place] [id number] [phone] [id number] WILMER MILLER Self - patient is the insured Medical (General) History Medical History History ICD Code Denies [place],DM,CVA,Lung disease,renal dise ase eczema Surgical History Surgery Date(Month/Year) shoulder surgery reconstructed 2009
== END 2025-10-04 14:57 | disposition home or self-care (01) ==
LOC: HO.HOS 13:28
PROVIDERS: PCP Internal Medicine; Visit Provider Orthopaedic Surgery
DX: S52.501A Unspecified fracture of the lower end of right radius, initial encounter for closed fracture (principal); M65.341 Trigger finger, right ring finger
CPT/HCPCS: 99024

== ENCOUNTER → 2025-10-04 13:30 | Outpatient (BNV) | payer MEDICARE, SELFPAY | PROVIDERS: Visit Provider Radiology Diagnostic Ultrasound | DX: S52.501D Unspecified fracture of the lower end of right radius, subsequent encounter for closed fracture with routine healing (principal); M06.831 Other specified rheumatoid arthritis, right wrist | CPT/HCPCS: 73110 ==